=== PATIENT | female | born 1945 | race Caucasian/White ===

== ENCOUNTER → 2017-06-05 | Outpatient (CLI) | payer MEDICARE ==
--- NOTE | 2017-06-05 14:21 | US ---
EXAMINATION TYPE: US carotid duplex BILAT DATE OF EXAM: 06/05/2017 COMPARISON: NONE CLINICAL HISTORY: 72-year-old female Fatigue R53.82Dizziness R42. Patient states has occasional left facial drooping and noticeable at left mouth; dizziness with positional changes and loss of balance. TECHNIQUE: Carotid duplex ultrasound examination. Indirect Doppler criteria is utilized. FINDINGS: Minimal atherosclerotic changes at the right carotid bifurcation and mild to moderate on the left. EXAM MEASUREMENTS: RIGHT: Peak Systolic Velocity (PSV) cm/sec ----- Right CCA: 72.2 ----- Right ICA: 63.3 ----- Right ECA: 63.3 ICA/CCA ratio: 0.9 RIGHT: End Diastole cm/sec ----- Right CCA: 28.6 ----- Right ICA: 26.7 ----- Right ECA: 14.5 LEFT: Peak Systolic Velocity (PSV) cm/sec ----- Left CCA: 63.3 ----- Left ICA: 70.3 ----- Left ECA: 78.8 ICA/CCA ratio: 1.1 LEFT: End Diastole cm/sec ----- Left CCA: 23.7 ----- Left ICA: 27.6 ----- Left ECA: 19.3 VERTEBRALS (direction of flow): Right Vertebral: Antegrade Left Vertebral: Antegrade Rhythm: Normal Mild intimal wall thickening is imaged at right bifurcation and moderate wall changes at noted at Lef t ICA, but PSV is wnl. Incidental finding of bilateral thyroid nodules are noted. The provided images suggest that they are 1 cm or less but dedicated thyroid ultrasound could further evaluate. IMPRESSION: No hemodynamically significant stenosis appreciated in either internal carotid artery. Criteria for Assigning % of Stenosis / Diameter reduction (Estimation based on the indirect measurements of the internal carotid artery velocities (ICA PSV). 1. Normal (no stenosis)=ICA PSV < 125 cm/s: ratio < 2.0: ICA EDV<40 cm/s. 2. Less than 50% stenosis=ICA PSV < 125 cm/s: ratio < 2.0: ICA EDV<40 cm/s. 3. 50 to 69% stenosis=ICA PSV of 125 to 230 cm/s: ration 2.0 ? 4.0: ICA EDV 40-100 cm/s. 4. Greater than 70% stenosis to near occlusion= ICA PSV > 230 cm/s: ratio > 4.0: ICA EDV > 100 cm/s. 5. Near occlusion= ICA PSV velocities may be low or undetectable: variable ratio and ICA EDV. 6. Total occlusion=unable to detect flow.
== END | disposition home or self-care (01) ==
LOC: RADUSWWP 12:16
PROVIDERS: ATTEND Internal Medicine Hematology & Oncology
DX: R42 Dizziness and giddiness (principal); R53.82 Chronic fatigue, unspecified
CPT/HCPCS: 93880

== ENCOUNTER → 2018-01-17 | Outpatient (CLI) | payer MEDICARE ==
[2018-01-17 09:23] VITALS: BP 124/79; PULSE 51; TEMP 97.5; BMI 19.5
--- NOTE | 2018-01-17 09:43 | P.HPOB ---
History of Present Illness H&P Date: 01/17/18 Chief Complaint: The patient is here for her routine gynecologic exam. This is a 72-year-old with an LMP of 1995. The patient is without gynecologic complaints and denies any postmenopausal bleeding. Review of Systems She has lost 5 pounds over the last year and a half. She denies respiratory, cardiac and G.I. problems. She denies maltreatment or problems with falling. : she denies any significant problems with urinary leakage. Past Medical History Past Medical History: Cancer (Right breast cancer 1995 and left breast cancer in 2012), Rheumatoid Arthritis (RA) Additional Past Medical History / Comment(s): Raynauds syndrome and history of osteopenia (s/p 2 yrs use of bisphosphonates in the past). 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 History of Any Multi-Drug Resistant Organisms: None Reported Past Surgical History: Breast Surgery (Right mastectomy 1995 and left mastectomy 2012) Additional Past Surgical History / Comment(s): Bunionectomy. Colonoscopy 2007 Past Psychological History: No Psychological Hx Reported Smoking Status: Former smoker (Quit 1987) Past Alcohol Use History: None Reported Past Drug Use History: None Reported Additional History: She has been since 1964 and is retired. - Past Family History Mother Family Medical History: Cancer (Uncertain of type) Sister(s) Family Medical History: Cancer (Lymphoma) Medications and Allergies Home Medications Medication Instructions Recorded Confirmed Type Certolizumab Pegol [Cimzia] syr INJ MO 01/17/18 History NIFEdipine XL [Procardia XL] tab PO DAILY 01/17/18 History Allergies Allergy/AdvReac Type Severity Reaction Status Date / Time No Known Allergies Allergy Unverified 01/17/18 09:20 Exam - Vital Signs Vital signs: Vital Signs Temp Pulse BP 01/17/18 09:20 97.5 F L 51 L 124/79 Intake and Output 01/16/18 01/17/18 01/17/18 22:59 06:59 14:59 Other: Weight 56.699 kg Height 5'7", BMI 19.6. This is a well-developed well-nourished white female who is alert and oriented times 3 in no acute distress. HEENT: Within normal limits. NECK: Supple without mass or thyromegaly. CHEST AND LUNGS: Clear to auscultation. HEART: Regular rate and rhythm. BREASTS: consistent with bilateral mastectomies. Incisions are well-heeled. There are no masses or tenderness. AXILLARY EXAM: Negative for adenopathy. BACK: Negative for CVA tenderness. ABDOMEN: Soft, nontender, without palpable masses. PELVIC EXAM: Normal external genitalia with moderate atrophy. Cervix and vagina appear normal with moderate atrophy. There is no unusual discharge. There is no evidence of prolapse. The uterus is midposition, nongravid size and nontender. There are no palpable adnexal masses or tenderness. RECTAL EXAM: rectovaginal exam is negative for mass or tenderness and is negative for occult blood. EXTREMITIES: Nontender. IMPRESSION: 1. 72-year-old menopausal female with normal gynecologic exam. 2. History of bilateral breast cancers status post bilateral mastectomy with no evidence of recurrence. PLAN: 1. Pap smear was deferred since she had a normal one less than 2 years ago. 2. She will continue to follow-up with Dr. Meeks regarding her breast cancer history. 3. I have recommended a screening colonoscopy since it has been about 10 years since her last one. She will talk to Dr. Meeks about this. 4. Osteoporosis prevention was discussed. She states she recently had a bone density test done through Dr. Lee and was stable per the patient. 5. She does get flu shots in the fall. 6. She will return in one year.
== END | disposition home or self-care (01) ==
LOC: WWCWWP 08:29
PROVIDERS: ATTEND Obstetrics & Gynecology
DX: Z01.419 Encounter for gynecological examination (general) (routine) without abnormal findings (principal); Z53.9 Procedure and treatment not carried out, unspecified reason

== ENCOUNTER → 2018-12-27 | Outpatient (CLI) | payer MEDICARE ==
--- NOTE | 2018-12-27 14:04 | BD ---
EXAMINATION TYPE: Axial Bone Density DATE OF EXAM: 12/27/2018 COMPARISON: 2016 CLINICAL HISTORY: Postmenopausal female. Osteoporosis screening. Height: 65.25 Weight: 120 FRAX RISK QUESTIONS: Alcohol (3 or more units per day): no Family History (Parent hip fracture): no Glucocorticoids (More than 3mos): no (Ex: prednisone, prednisolone, methylprednisolone, dexamethasone, and hydrocortisone). History of Fracture in Adulthood: no Secondary Osteoporosis: 1. Type 1 Diabetes: no 2. Hyperthyroidism: no 3. Menopause before 45: no 4. Malnutrition: no 5. Chronic liver disease: no Rheumatoid Arthritis: YES Current Tobacco Use: no RISK FACTORS HISTORY OF: Family History of Osteoporosis: does not know for sure Active: yes Diet low in dairy products/other sources of calcium: no Postmenopausal woman: yes Take estrogen and/or progesterone medications: no Lost more than 2 inches in height since high school: yes, states height was once about 68 inches Frequent falls: no Poor Health: no Hyperparathyroidism: no Adrenal Insufficiency: no MEDICATIONS: Prednisone or other steroids: no Thyroid Medications: no Osteoporosis Medications: not now Which medication: history of Fosamax, Boniva, Prolia shot once Additional Medications: Cimzia, Nifedipine Calcium & Vitamin D & various other vitamins Additional History: breast CA, Raynaud phenomenon EXAM MEASUREMENTS: Bone mineral densitometry was performed using the [employer]. Bone mineral density as measured about the Lumbar spine is: ----- L1-L4(G/cm2): 1.002 T Score Values are as follows: ----- L2: -1.4 ----- L3: -1.2 ----- L4: -1.1 ----- L1-L4: -1.5 Bone mineral density has: Decreased -8.3% since study of: 03/30/2016 Bone mineral density about the R hip (g/cm2): 0.748 Bone mineral density about the L hip (g/cm2): 0.793 T Score values are as follows: -----R Neck: -2.1 -----L Neck: -1.8 -----R Total: -2.0 -----L Total: -1.9 Bone mineral density has: Decreased -8.2% since study of: 03/30/2016 IMPRESSION: Osteopenia (T Score between -2.5 and -1). There is slightly increased risk of fracture and the patient may be considered for treatment. Re-Screen 2-5 years. NOTE: T-SCORE=SD OF THE YOUNG ADULT MEAN.
== END | disposition home or self-care (01) ==
LOC: RADBDWWP 12:28
PROVIDERS: ATTEND Internal Medicine Rheumatology
DX: M85.80 Other specified disorders of bone density and structure, unspecified site (principal); M81.0 Age-related osteoporosis without current pathological fracture
CPT/HCPCS: 77080

== ENCOUNTER → 2019-01-22 | Outpatient (CLI) | payer MEDICARE ==
[2019-01-22 10:37] VITALS: BP 136/87; PULSE 66; RESP 16; TEMP 97.9; BMI 19.7
--- NOTE | 2019-01-22 11:45 | P.HPOB ---
History of Present Illness H&P Date: 01/22/19 Chief Complaint: The patient is here for her routine gynecologic exam. This is a 73-year-old with an LMP of 1995. The patient is without gynecologic complaints and denies any postmenopausal bleeding. Review of Systems Her weight has been stable. She denies respiratory, cardiac and G.I. problems. She denies maltreatment or problems with falling. : she denies any significant problems with urinary leakage. Past Medical History Past Medical History: Cancer, Rheumatoid Arthritis (RA) Additional Past Medical History / Comment(s): Right breast cancer in 1995, left breast cancer 2012. Raynauds syndrome and history of osteopenia (s/p 2 yrs use of bisphosphonates in the past). 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 History of Any Multi-Drug Resistant Organisms: None Reported Past Surgical History: Breast Surgery Additional Past Surgical History / Comment(s): Right mastectomy 1995, left mastectomy 2012. Bunionectomy. Colonoscopy 2007. Bilateral cataract surgeries. Past Psychological History: No Psychological Hx Reported Smoking Status: Former smoker Past Alcohol Use History: None Reported Past Drug Use History: None Reported Additional History: Quit smoking in 1987. She has been since 1964 and is infrequently sexually active. She is retired. - Past Family History Mother Family Medical History: Cancer Additional Family Medical History / Comment(s): Unknown type of cancer. Sister(s) Family Medical History: Cancer Additional Family Medical History / Comment(s): Lymphoma. Medications and Allergies Home Medications Medication Instructions Recorded Confirmed Type Certolizumab Pegol [Cimzia] syr INJ MO 01/17/18 History NIFEdipine XL [Procardia XL] tab PO DAILY 01/17/18 History Allergies Allergy/AdvReac Type Severity Reaction Status Date / Time No Known Allergies Allergy Unverified 01/22/19 10:38 Exam Vital Signs Temp Pulse Resp BP Pulse Ox 01/22/19 10:32 97.9 F 66 16 136/87 99 Intake and Output 01/21/19 01/22/19 01/22/19 22:59 06:59 14:59 Other: Weight 55.338 kg Height 5'6" weight 122 pounds, BMI 19.7. This is a well-developed well-nourished white female who is alert and oriented times 3 in no acute distress. HEENT: Within normal limits. NECK: Supple without mass or thyromegaly. CHEST AND LUNGS: Clear to auscultation. HEART: Regular rate and rhythm. BREASTS: exam is consistent with bilateral mastectomies. There are no palpable masses. There is no tenderness. AXILLARY EXAM: Negative for adenopathy. BACK: Negative for CVA tenderness. ABDOMEN: Soft, nontender, without palpable masses. PELVIC EXAM: Normal external genitalia with moderate atrophy. Cervix and vagina appear normal with moderate atrophy. There is no unusual discharge. There is no evidence of prolapse. The uterus is midposition, nongravid size and nontender. There are no palpable adnexal masses or tenderness. RECTAL EXAM: rectovaginal exam is negative for mass or tenderness and is negative for occult blood. EXTREMITIES: Nontender. IMPRESSION: 1. 73-year-old menopausal female with history of bilateral breast cancers and his status post bilateral mastectomies. No evidence of recurrence. 2. Normal pelvic exam. 3. History of osteopenia status post 2 years use of bisphosphonates in the past. PLAN: 1. Pap smears have been discontinued because she is greater than 65 with a history of adequate screening and no history of cervical abnormalities. 2. Self breast awareness was discussed with the patient. She will continue to be aware of changes at the sight of her bilateral mastectomies. 3. Mammograms have been discontinued because of her bilateral mastectomies. 4. Osteoporosis prevention was discussed. I have stressed the importance of adequate calcium, vitamin D and regular exercise. Recommended amounts of calcium and vitamin D were also discussed. Bone density testing was done on 12/27/18 which showed a decrease in bone density strength and continues to show osteopenia. She is declining medication. We will plan on repeating bone density testing in 2-3 years. 5. She does receive flu shots in the fall. 6. I have recommended screening colonoscopy since it is been about 11 years. She will follow-up with Dr. Meeks to arrange this. 7. I have recommended that she return for her well woman exam in one to 2 years.
== END | disposition home or self-care (01) ==
LOC: WWCWWP 10:23
PROVIDERS: ATTEND Obstetrics & Gynecology
DX: Z53.9 Procedure and treatment not carried out, unspecified reason (principal)

== ENCOUNTER 2019-01-28 17:23 | Emergency (ER) | payer MEDICARE ==
[2019-01-28] MEDS ORDERED: ALBUTEROL NEBULIZED 2.5 MG/3 ML INHALATION STA (18:21)
[2019-01-28] MEDS ORDERED: FUROSEMIDE 10 MG/ML 4 ML VIAL IV STA (18:21)
--- NOTE | 2019-01-28 18:37 | ED ---
General Adult HPI - General Chief complaint: Recheck/Abnormal Lab/Rx Stated complaint: Abn labs Time Seen by Provider: 01/28/19 18:20 Source: patient Mode of arrival: ambulatory Limitations: no limitations - History of Present Illness Initial comments: Dictation was produced using [employer] dictation software. please excuse any grammatical, word or spelling errors. Chief Complaint: 73-year-old female past medical history of breast cancer in remission, rheumatoid arthritis presents with abnormal outpatient lab. History of Present Illness: 73-year-old female she reports that she was told to the emergency department for a potassium of 6.5. 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 She was so the potassium was 6.5. Patient has no symptoms at this time. Denies any weakness. Patient has palpitations. Patient otherwise feels at baseline. She reports that there was a difficult lab draw from the office. The ROS documented in this emergency department record has been reviewed and confirmed by me. Those systems with pertinent positive or negative responses have been documented in the HPI. All other systems are other negative and/or noncontributory. PHYSICAL EXAM: General Impression: Alert and oriented x3, not in acute distress HEENT: Normocephalic atraumatic, extra-ocular movements intact, pupils equal and reactive to light bilaterally, mucous membranes moist. Cardiovascular: Heart regular rate and rhythm, S1&S2 audible, no murmurs, rubs or gallops Chest: Lungs clear to auscultation bilaterally, no rhonchi, no wheeze, no rales Abdomen: Bowel sounds present, abdomen soft, non-tender, non-distended, no organomegaly Musculoskeletal: Pulses present and equal in all extremities, no peripheral edema Motor: no focal deficits noted Neurological: CN II-XII grossly intact, no focal motor or sensory deficits noted Skin: Intact with no visualized rashes Psych: Normal affect and mood ED course: 73-year-old female presents with abnormal outpatient lab with a potassium of 6.5. Patient is asymptomatic at this time. Vital signs upon arr ival are within acceptable limits. Laboratory evaluation obtained. CBC, metabolic panel is unremarkable. Potassium is 4.1. EKG is unremarkable.EKG interpretation: Ventricular rate 62, normal sinus r hythm,. Interval 200, care 76, QTC 424. No [place] prolongation, no QTC prolongation, no ST or T-wave changes noted. . Overall, this EKG is unremarkable patient clear for discharge. - Related Data Home Medications Medication Instructions Recorded Confirmed Certolizumab Pegol [Cimzia] 200 mg IV Q28D 01/17/18 01/28/19 NIFEdipine XL [Procardia XL] 30 mg PO DAILY 01/17/18 01/28/19 Calcium 1200mg/Vitamin D 1 tab PO BID 01/28/19 01/28/19 Co Q-10(Unknown) 1 tab PO DAILY 01/28/19 01/28/19 Curcumin 1 tab PO AC-SUPPER 01/28/19 01/28/19 L.acidoph,Paracasei, B.lactis 1 cap PO DAILY 01/28/19 01/28/19 [Probiotic] Lutein(Unknown) 1 tab PO DAILY 01/28/19 01/28/19 Magnesium(Unknown) 1 tab PO AC-SUPPER 01/28/19 01/28/19 Multivitamins, Thera [Multivitamin 1 tab PO DAILY 01/28/19 01/28/19 (formulary)] Vitamin B Complex 1 cap PO DAILY 01/28/19 01/28/19 Vitamin C(Unknown) 1 tab PO DAILY 01/28/19 01/28/19 Vitamin D3(Unknown) 1 tab PO DAILY 01/28/19 01/28/19 Vitamin E(Unknown) 1 tab PO DAILY 01/28/19 01/28/19 Allergies Allergy/AdvReac Type Severity Reaction Status Date / Time Latex, Natural Rubber Allergy Rash/Hives Verified 01/28/19 19:11 Review of Systems ROS Statement: Those systems with pertinent positive or pertinent negative responses have been documented in the HPI. ROS Other: All systems not noted in ROS Statement are negative. Past Medical History Past Medical History: Cancer, Rheumatoid Arthritis (RA) Additional Past Medical History / Comment(s): Right breast cancer in 1995, left breast cancer 2012. Raynauds syndrome and history of osteopenia (s/p 2 yrs use of bisphosphonates in the past). 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 History of Any Multi-Drug Resistant Organisms: None Reported Past Surgical History: Breast Surgery Additional Past Surgical History / Comment(s): Right mastectomy 1995, left mastectomy 2012. Bunionectomy. Colonoscopy 2007. Bilateral cataract surgeries. Past Psychological History: No Psychological Hx Reported Smoking Status: Former smoker Past Alcohol Use History: None Reported Past Drug Use History: None Reported - Past Family History Mother Family Medical History: Cancer Additional Family Medical History / Comment(s): Unknown type of cancer. Sister(s) Family Medical History: Cancer Additional Family Medical History / Comment(s): Lymphoma. General Exam Limitations: no limitations Course Vital Signs 01/28/19 01/28/19 01/28/19 17:44 19:02 19:26 Temperature 98.7 F 98 F Pulse Rate 73 60 61 Respiratory 16 16 18 Rate Blood Pressure 138/97 140/94 127/89 O2 Sat by Pulse 97 98 99 Oximetry Medical Decision Making - Lab Data Result diagrams: 01/28/19 18:46 01/28/19 18:46 Lab Results 01/28/19 01/28/19 Range/Units 18:46 18:46 WBC 2.7 L (3.8-10.6) k/uL RBC 4.40 (3.80-5.40) m/uL Hgb 13.5 (11.4-16.0) gm/dL Hct 40.2 (34.0-46.0) % MCV 91.3 (80.0-100.0) fL MCH 30.7 (25.0-35.0) pg MCHC 33.6 (31.0-37.0) g/dL RDW 14.8 (11.5-15.5) % Plt Count 239 (150-450) k/uL Neutrophils % 52 % Lymphocytes % 28 % Monocytes % 9 % Eosinophils % 5 % Basophils % 1 % Neutrophils # 1.4 (1.3-7.7) k/uL Lymphocytes # 0.7 L (1.0-4.8) k/uL Monocytes # 0.2 (0-1.0) k/uL Eosinophils # 0.1 (0-0.7) k/uL Basophils # 0.0 (0-0.2) k/uL Sodium 136 L (137-145) mmol/L Potassium 4.1 (3.5-5.1) mmol/L Chloride 101 (98-107) mmol/L Carbon Dioxide 26 (22-30) mmol/L Anion Gap 9 mmol/L BUN 20 H (7-17) mg/dL Creatinine 0.59 (0.52-1.04) mg/dL Est GFR (CKD-EPI)AfAm >90 (>60 ml/min/1.73 sqM) Est GFR (CKD-EPI)NonAf >90 (>60 ml/min/1.73 sqM) Glucose 86 (74-99) mg/dL Calcium 9.7 (8.4-10.2) mg/dL Magnesium 2.1 (1.6-2.3) mg/dL Disposition Clinical Impression: Abnormal laboratory test Disposition: HOME SELF-CARE Condition: Good Is patient prescribed a controlled substance at d/c from ED?: No Referrals: Jose Meeks MD [Primary Care Provider] - 1-2 days Time of Disposition: 19:36
[2019-01-28 19:03] LABS: Basophils % (A) 1 %; Eosinophils # (A) 0.1 k/uL (0-0.7); Eosinophils % (A) 5 %; HCT 40.2 % (34.0-46.0); HGB 13.5 gm/dL (11.4-16.0); Lymphocytes # (A) 0.7 k/uL (1.0-4.8); Lymphocytes % (A) 28 %; MCH 30.7 pg (25.0-35.0); MCHC 33.6 g/dL (31.0-37.0); MCV 91.3 fL (80.0-100.0); Monocytes # (A) 0.2 k/uL (0-1.0); Monocytes % (A) 9 %; Neutrophils # (A) 1.4 k/uL (1.3-7.7); Neutrophils % (A) 52 %; Platelet Count 239 k/uL (150-450); RDW 14.8 % (11.5-15.5); WBC 2.7 k/uL (3.8-10.6)
[2019-01-28 19:11] LABS: Anion Gap 9 mmol/L; Blood Urea Nitrogen 20 mg/dL (7-17); Calcium 9.7 mg/dL (8.4-10.2); Carbon Dioxide 26 mmol/L (22-30); Chloride 101 mmol/L (98-107); Glucose 86 mg/dL (74-99); Magnesium 2.1 mg/dL (1.6-2.3); Potassium 4.1 mmol/L (3.5-5.1); Sodium 136 mmol/L (137-145)
[2019-01-28 19:27] VITALS: BP 127/89
[2019-01-28 20:11] VITALS: PULSE 62; RESP 16; TEMP 98.6
== END 2019-01-28 20:10 | disposition home or self-care (01) ==
LOC: EC 17:23
DX: R79.9 Abnormal finding of blood chemistry, unspecified (principal); R00.2 Palpitations; M06.9 Rheumatoid arthritis, unspecified; Z79.899 Other long term (current) drug therapy; Z91.040 Latex allergy status; Z91.048 Other nonmedicinal substance allergy status; Z87.891 Personal history of nicotine dependence; Z85.3 Personal history of malignant neoplasm of breast; Z90.12 Acquired absence of left breast and nipple
CPT/HCPCS: 36415; 80048; 83735; 85025; 93005; 99283

== ENCOUNTER 2019-06-03 14:19 | Observation (INO) | payer MEDICARE ==
[2019-06-03] MEDS ORDERED: ASPIRIN 81 MG PO STA (15:14)
[2019-06-03] MEDS ORDERED: NITROGLYCERIN OINT 1 INCH/GM PACKET TOPICAL STA (15:14)
--- NOTE | 2019-06-03 15:17 | ED ---
General Adult HPI - General Chief complaint: Chest Pain Stated complaint: Chest Pain Time Seen by Provider: 06/03/19 14:25 Source: patient, RN notes reviewed Mode of arrival: ambulatory Limitations: no limitations - History of Present Illness Initial comments: This is a 74-year-old female presents emergency Department with no significant past medical history. Patient comes in today stating complains ago she was cleaning around the bathroom and started having significant chest pain it lasted about half an hour she was mildly short of breath she denies any diaphoretic episodes she denies any nausea. Patient states again today right after yoga she started having significant chest pain she describes it as a heaviness. Patient also has shortness of breath again today. Patient states she continues to have slight heaviness now but nowhere near as significant as it was earlier. Patient denies any diaphoresis today. Patient denies any nausea today. Patient denies any recent fever or chills. Patient denies any lightheadedness or dizziness. Patient denies any headache patient denies numbness weakness. Patient denies any swelling to the lower extremities or calf tenderness - Related Data Home Medications Medication Instructions Recorded Confirmed Certolizumab Pegol [Cimzia] 400 mg IV Q28D 01/17/18 06/03/19 NIFEdipine XL [Procardia XL] 30 mg PO DAILY 01/17/18 06/03/19 Multivitamins, Thera [Multivitamin 1 tab PO DAILY 01/28/19 06/03/19 (formulary)] Allergies Allergy/AdvReac Type Severity Reaction Status Date / Time Latex, Natural Rubber Allergy Rash/Hives Verified 06/03/19 15:10 Review of Systems ROS Statement: Those systems with pertinent positive or pertinent negative responses have been documented in the HPI. ROS Other: All systems not noted in ROS Statement are negative. Past Medical History Past Medical History: Cancer, Rheumatoid Arthritis (RA) Additional Past Medical History / Comment(s): Right breast cancer in 1995, left breast cancer 2012. Raynauds syndrome and history of osteopenia (s/p 2 yrs use of bisphosphonates in the past). Past COLD TYPE ARTIST history: she has no history of STDs. History of Any Multi-Drug Resistant Organisms: None Reported Past Surgical History: Breast Surgery Additional Past Surgical History / Comment(s): Right mastectomy 1995, left mastectomy 2012. Bunionectomy. Colonoscopy 2007. Bilateral cataract llamas rgeries. Past Psychological History: No Psychological Hx Reported Smoking Status: Former smoker Past Alcohol Use History: None Reported Past Drug Use History: None Reported - Past Family History Mother Family Medical History: Cancer Additional Family Medical History / Comment(s): Unknown type of cancer. Sister(s) Family Medical History: Cancer Additional Family Medical History / Comment(s): Lymphoma. General Exam - General Exam Comments Initial Comments: GENERAL: Patient is well-developed and well-nourished. Patient is nontoxic and well- hydrated and is in mild distress. ENT: Neck is soft and supple. No significant lymphadenopathy is noted. Oropharynx is clear. Moist mucous membranes. Neck has full range of motion without eliciting any pain. EYES: The sclera were anicteric and conjunctiva were pink and moist. Extraocular movements were intact and pupils were equal round and reactive to light. Eyelids were unremarkable. PULMONARY: Unlabored respirations. Good breath sounds bilaterally. No audible rales rhonchi or wheezing was noted. CARDIOVASCULAR: There is a regular rate and rhythm without any murmurs gallops or rubs. ABDOMEN: Soft and nontender with normal bowel sounds. SKIN: Skin is clear with no lesions or rashes and otherwise unremarkable. NEUROLOGIC: Patient is alert and oriented x3. Cranial nerves II through XII are grossly intact. Motor and sensory are also intact. Normal speech, volume and content. Symmetrical smile. MUSCULOSKELETAL: Normal extremities with adequate strength and full range of motion. No lower extremity swelling or edema. No calf tenderness. LYMPHATICS: No significant lymphadenopathy is noted PSYCHIATRIC: Normal psychiatric evaluation. Limitations: no limitations Course Vital Signs 06/03/19 06/03/19 06/03/19 14:25 14:39 15:00 Temperature 97.3 F L Pulse Rate 83 75 69 Respiratory 20 16 14 Rate Blood Pressure 117/74 121/108 O2 Sat by Pulse 99 98 96 Oximetry 06/03/19 06/03/19 06/03/19 15:30 15:42 16:00 Temperature Pulse Rate 71 63 Respiratory 16 16 Rate Blood Pressure 127/89 O2 Sat by Pulse 97 Oximetry 06/03/19 16:02 Temperature Pulse Rate 63 Respiratory 16 Rate Blood Pressure 127/89 O2 Sat by Pulse Oximetry Medical Decision Making - Medical Decision Making EKG shows normal sinus rhythm at 76 bpm WA interval is 180 QRSs 80 QT interval 364 QTC is 49. Patient's EKG shows no ST segment elevation or depression. Chest x-ray shows no acute abnormality. I started the patient heparin for unstable angina. Oncologist requested Dr. Hyman spoke I spoke with [facility] hospitalist and they agreed to admit the patient admitted the patient wrote admitting orders I consult cardiology - Lab Data Result diagrams: 06/03/19 14:47 06/03/19 14:47 Lab Results 06/03/19 06/03/19 06/03/19 Range/Units 14:47 14:47 14:47 WBC 4.0 (3.8-10.6) k/uL RBC 4.67 (3.80-5.40) m/uL Hgb 14.9 (11.4-16.0) gm/dL Hct 43.9 (34.0-46.0) % MCV 94.0 (80.0-100.0) fL MCH 32.0 (25.0-35.0) pg MCHC 34.1 (31.0-37.0) g/dL RDW 13.5 (11.5-15.5) % Plt Count 308 (150-450) k/uL Neutrophils % 64 % Lymphocytes % 25 % Monocytes % 7 % Eosinophils % 1 % Basophils % 1 % Neutrophils # 2.6 (1.3-7.7) k/uL Lymphocytes # 1.0 (1.0-4.8) k/uL Monocytes # 0.3 (0-1.0) k/uL Eosinophils # 0.1 (0-0.7) k/uL Basophils # 0.0 (0-0.2) k/uL PT 10.0 (9.0-12.0) sec INR 0.9 (<1.2) APTT 25.1 (22.0-30.0) sec Sodium 138 (137-145) mmol/L Potassium 4.3 (3.5-5.1) mmol/L Chloride 102 (98-107) mmol/L Carbon Dioxide 25 (22-30) mmol/L Anion Gap 11 mmol/L BUN 14 (7-17) mg/dL Creatinine 0.58 (0.52-1.04) mg/dL Est GFR (CKD-EPI)AfAm >90 (>60 ml/min/1.73 sqM) Est GFR (CKD-EPI)NonAf >90 (>60 ml/min/1.73 sqM) Glucose 94 (74-99) mg/dL Calcium 9.9 (8.4-10.2) mg/dL Magnesium 2.1 (1.6-2.3) mg/dL Total Bilirubin 0.5 (0.2-1.3) mg/dL AST 38 H (14-36) U/L ALT 27 (9-52) U/L Alkaline Phosphatase 86 (38-126) U/L Troponin I (0.000-0.034) ng/mL Total Protein 8.1 (6.3-8.2) g/dL Albumin 4.8 (3.5-5.0) g/dL 06/03/19 Range/Units 14:47 WBC (3.8-10.6) k/uL RBC (3.80-5.40) m/uL Hgb (11.4-16.0) gm/dL Hct (34.0-46.0) % MCV (80.0-100.0) fL MCH (25.0-35.0) pg MCHC (31.0-37.0) g/dL RDW (11.5-15.5) % Plt Count (150-450) k/uL Neutrophils % % Lymphocytes % % Monocytes % % Eosinophils % % Basophils % % Neutrophils # (1.3-7.7) k/uL Lymphocytes # (1.0-4.8) k/uL Monocytes # (0-1.0) k/uL Eosinophils # (0-0.7) k/uL Basophils # (0-0.2) k/uL PT (9.0-12.0) sec INR (<1.2) APTT (22.0-30.0) sec Sodium (137-145) mmol/L Potassium (3.5-5.1) mmol/L Chloride (98-107) mmol/L Carbon Dioxide (22-30) mmol/L Anion Gap mmol/L BUN (7-17) mg/dL Creatinine (0.52-1.04) mg/dL Est GFR (CKD-EPI)AfAm (>60 ml/min/1.73 sqM) Est GFR (CKD-EPI)NonAf (>60 ml/min/1.73 sqM) Glucose (74-99) mg/dL Calcium (8.4-10.2) mg/dL Magnesium (1.6-2.3) mg/dL Total Bilirubin (0.2-1.3) mg/dL AST (14-36) U/L ALT (9-52) U/L Alkaline Phosphatase (38-126) U/L Troponin I <0.012 (0.000-0.034) ng/mL Total Protein (6.3-8.2) g/dL Albumin (3.5-5.0) g/dL Critical Care Time Critical Care Time: Yes Total Critical Care Time: 35 Disposition Clinical Impression: Unstable angina pectoris Disposition: ADMITTED IP TO THIS HOSP Referrals: Jose Meeks MD [Primary Care Provider] - 1-2 days Time of Disposition: 16:16
[2019-06-03 15:42] LABS: Basophils % (A) 1 %; Eosinophils # (A) 0.1 k/uL (0-0.7); Eosinophils % (A) 1 %; HCT 43.9 % (34.0-46.0); HGB 14.9 gm/dL (11.4-16.0); Lymphocytes % (A) 25 %; MCHC 34.1 g/dL (31.0-37.0); Mean Platelet Volume 5.9; Monocytes # (A) 0.3 k/uL (0-1.0); Monocytes % (A) 7 %; Neutrophils # (A) 2.6 k/uL (1.3-7.7); Neutrophils % (A) 64 %; Platelet Count 308 k/uL (150-450); RBC 4.67 m/uL (3.80-5.40); RDW 13.5 % (11.5-15.5)
[2019-06-03 15:51] LABS: INR 0.9 (<1.2); Partial Thromboplastin Time 25.1 sec (22.0-30.0)
[2019-06-03 15:53] LABS: ALT 27 U/L (9-52); AST 38 U/L (14-36); African American GFR (CKD) >90 (>60 ml/min/1.73 sqM); Albumin 4.8 g/dL (3.5-5.0); Alkaline Phosphatase 86 U/L (38-126); Anion Gap 11 mmol/L; Blood Urea Nitrogen 14 mg/dL (7-17); Calcium 9.9 mg/dL (8.4-10.2); Carbon Dioxide 25 mmol/L (22-30); Chloride 102 mmol/L (98-107); Glucose 94 mg/dL (74-99); Magnesium 2.1 mg/dL (1.6-2.3); Potassium 4.3 mmol/L (3.5-5.1); Sodium 138 mmol/L (137-145); Total Bilirubin 0.5 mg/dL (0.2-1.3); Total Protein 8.1 g/dL (6.3-8.2)
--- NOTE | 2019-06-03 15:59 | XR ---
EXAMINATION TYPE: XR chest 2V DATE OF EXAM: 06/03/2019 COMPARISON: Chest x-ray April 04, 2014. HISTORY: Chest pain with dysrhythmia. History of breast cancer. TECHNIQUE: Frontal and lateral views of the chest are obtained. FINDINGS: There is chronic parenchymal changes bilaterally without suspicious focal air space opacit y, pleural effusion, or pneumothorax seen. The cardiac silhouette size is within normal limits with atherosclerotic and ectatic aorta. The osseous structures are demineralized. Exaggerated kyphosis i s seen. IMPRESSION: Chronic parenchymal changes without acute pulmonary process.
[2019-06-03] MEDS ORDERED: HEPARIN SODIUM,PORCINE 5,000 UNIT/ML 1 ML VIAL IV ONE (16:15)
[2019-06-03] MEDS ORDERED: HEPARIN SOD,PORK IN 0.45% NACL 25,000 UNIT in 0.45% NACL 1 250ML.BAG IV SCH (16:15)
[2019-06-03] MEDS ORDERED: NITROGLYCERIN SL TABS 0.4 MG TAB SUBLINGUAL PRN (16:18)
[2019-06-03] MEDS ORDERED: ALPRAZolam 0.25 MG TAB PO PRN (18:30)
[2019-06-03] MEDS: PANTOPRAZOLE 40 MG/10 ML VIAL IVP SCH (18:55)
--- NOTE | 2019-06-03 20:02 | HP ---
HISTORY AND PHYSICAL DATE OF SERVICE: 06/03/2019 CHIEF COMPLAINT: Chest pain. HISTORY OF PRESENT ILLNESS: This 74-year-old woman with a past medical history of multiple medical problems, including rheumatoid arthritis and right breast cancer, being followed by Dr. Meeks in the outpatient setting, was having some chest pains in the anterior part of the chest. The patient was cleaning the bathroom and the pain lasted about a half an hour. There were no other associated symptoms; no radiation of the pain elsewhere. The patient was pretty active doing yoga and recently returned from an [place] vacation where she apparently took slightly more wine than usual, according to her. Otherwise, there is no history of any fever, rigors, chills. No headache, loss of consciousness or seizures at this time. PAST MEDICAL HISTORY: 1. History of rheumatoid arthritis. 2. Right breast cancer. 3. Mastectomy. MEDICATIONS: 1. Cimzia 400 mg IV q.28 days. 2. Multivitamins 1 p.o. daily. 3. Procardia XL 30 mg p.o. daily. ALLERGIES: 1. LATEX. 2. NATURAL RUBBER. FAMILY HISTORY: History of cancer. SOCIAL HISTORY: Previous history of smoking. No current smoking. No history of alcohol intake. REVIEW OF SYSTEMS: ENT: No diminished hearing. No diminished vision. CARDIOVASCULAR SYSTEM: As mentioned earlier. RESPIRATORY SYSTEM: As mentioned earlier. GI: As mentioned earlier. : No dysuria or retention. NERVOUS SYSTEM: No numbness, weakness. ALLERGY/IMMUNOLOGY: No asthma, hayfever. MUSCULOSKELETAL: As mentioned earlier. HEMATOLOGY/ONCOLOGY: As mentioned earlier. ENDOCRINE: No history of diabetes, hypothyroidism. CONSTITUTIONAL: As mentioned earlier. DERMATOLOGY: Negative. RHEUMATOLOGY: Negative. PSYCHIATRY: As mentioned earlier. PHYSICAL EXAMINATION: Patient alert and oriented x3. Pulse is 63, blood pressure 127/89, respirations 16, temperature 97.3, pulse ox 97% on room air. HEENT: Conjunctivae normal. Oral mucosa moist. NECK: No jugular venous distention. No carotid bruit. No lymph node enlargement. CARDIOVASCULAR SYSTEM: S1, S2 muffled. No S3. No S4. RESPIRATORY SYSTEM: Breath sounds diminished at the bases. No rhonchi. No crackles. ABDOMEN: Soft, non-tender. No mass palpable. LEGS: No edema. No swelling. NERVOUS SYSTEM: Higher functions as mentioned earlier. Moves all 4 limbs. No focal motor or sensory deficit. LYMPHATICS: No lymph node palpable in neck, axillae or groin. JOINTS: No active deforming arthropathy. LABS: CBC within normal limits. CMP within normal limits. ASSESSMENT: 1. Chest pain; possible unstable angina. 2. History of rheumatoid arthritis. 3. History of breast cancer. 4. History of Raynaud syndrome. 5. Remote history of nicotine dependence. RECOMMENDATIONS AND DISCUSSION: In this 74-year-old woman who presented with multiple medical issues, at this time I recommend to continue the current medications, continue symptomatic treatment. Resume the home medications. Cardiology consultation. Rule out myocardial infarction. Possible stress test. Prognosis guarded because of multiple complex medical issues. Further recommendations to follow. A copy of this dictation is being forwarded to Dr. Meeks, who is the primary physician. Constantino The initial EKG and troponins are normal. MMODL / IJN: [id number] /
[2019-06-03 20:28] LABS: Appearance,Urine Clear (Clear); Bilirubin,Urine Negative (Negative); Blood,Urine Negative (Negative); Color,Urine Light Yellow; Glucose,Urine (UA) Negative (Negative); Ketones,Urine Negative (Negative); Leukocyte Esterase,Urine Negative (Negative); Nitrite,Urine Negative (Negative); PH, Urine 7.5 (5.0-8.0); Protein,Urine Negative (Negative); Specific Gravity,Urine 1.008 (1.001-1.035); Urobilinogen,Urine <2.0 mg/dL (<2.0)
[2019-06-03] MEDS ORDERED: ACETAMINOPHEN TAB 325 MG TAB PO PRN (23:14)
[2019-06-03] MEDS: NITROGLYCERIN OINT 1 INCH/GM PACKET TOPICAL SCH (23:15)
[2019-06-04 03:37] LABS: Cholesterol 142 mg/dL (<200); HDL Cholesterol 71 mg/dL (40-60); LDL Cholesterol,Calculated 64 mg/dL (0-99); Triglycerides 33 mg/dL (<150)
[2019-06-04] MEDS: NITROGLYCERIN OINT 1 INCH/GM PACKET TOPICAL SCH ×2 (05:05→11:10)
[2019-06-04] MEDS ORDERED: ASPIRIN 325 MG TAB PO SCH (09:00)
[2019-06-04] MEDS ORDERED: MULTIVITAMINS, THERA 1 EACH TAB PO SCH (09:00)
[2019-06-04] MEDS ORDERED: NIFEdipine XL 30 MG TAB.ER.24 PO SCH (09:00)
[2019-06-04 09:34] VITALS: BMI 18.9
[2019-06-04 09:54] VITALS: BP 124/83; PULSE 58; RESP 14; TEMP 98.2
[2019-06-04] MEDS: PANTOPRAZOLE 40 MG/10 ML VIAL IVP SCH (09:54)
--- NOTE | 2019-06-04 12:00 | ECHOF ---
Referral Reason:[place] MEASUREMENTS -------- HEIGHT: 170.2 cm WEIGHT: 54.9 kg BP: 139/75 RVIDd: 2.7 cm (< 3.3) IVSd: 1.1 cm (0.6 - 1.1) LVIDd: 4.0 cm (3.9 - 5.3) LVPWd: 1.2 cm (0.6 - 1.1) IVSs: 1.4 cm LVIDs: 2.9 cm LVPWs: 1.4 cm LA Diam: 3.8 cm (2.7 - 3.8) LAESV Index (A-L): 33.32 ml/m Ao Diam: 2.6 cm (2.0 - 3.7) AV Cusp: 1.6 cm (1.5 - 2.6) LA Diam: 3.6 cm (2.7 - 3.8) MV EXCURSION: 14.577 mm (> 18.000) MV EF SLOPE: 65 mm/s (70 - 150) EPSS: 0.6 cm MV E Bradford: 0.55 m/s MV DecT: 186 ms MV A Rbadford: 0.74 m/s MV E/A Ratio: 0.74 RAP: 5.00 mmHg RVSP: 25.72 mmHg TAPSE: 25.05 mm FINDINGS -------- Sinus rhythm. This was a technically good study. LV size, wall thickness and systolic function are normal, with an EF greater than 55%. The left rajan tricular size is normal. The diastolic filling pattern is normal for the age of the patient 10.25. The right ventricle is normal in size. The left atrium is mildly dilated. LA is midly dilated 29-33ml/m2. The right atrial size is normal. There is mild aortic valve sclerosis. There is no evidence of aortic regurgitation. Mild mitral annular calcification present. Bvqq-jy-xoyriusr mitral regurgitation is present. Mild tricuspid regurgitation present. Right ventricular systolic pressure is normal at < 35 mmHg. There is no evidence of pulmonary hypertension. Trace/mild (physiologic) pulmonic regurgitation. The aortic root size is normal. There is no pericardial effusion. CONCLUSIONS -------- 1. Sinus rhythm. 2. This was a technically good study. 3. LV size, wall thickness and systolic function are normal, with an EF greater than 55%. 4. The left ventricular size is normal. 5. The diastolic filling pattern is normal for the age of the patient 10.25 6. The right ventricle is normal in size. 7. The left atrium is mildly dilated. 8. LA is midly dilated 29-33ml/m2. 9. The right atrial size is normal. 10. There is mild aortic valve sclerosis. 11. Mild mitral annular calcification present. 12. Hhqc-ih-rizvapqx mitral regurgitation is present. 13. Right ventricular systolic pressure is normal at < 35 mmHg. 14. There is no evidence of pulmonary hypertension. 15. Trace/mild (physiologic) pulmonic regurgitation. 16. The aortic root size is normal. 17. There is no pericardial effusion. SCHOOL CLEANER: Shagufta Jarrett RDCS
--- NOTE | 2019-06-04 12:42 | CONS ---
CONSULTATION Brea Rodriguez is a 74-year-old lady who is remarkably active person. She has history of Raynaud phenomena and takes and I freed heparin in this regard. She came into the hospital because recently when she is doing yoga, especially with certain movements. She has some kind of a pressure in the chest when she is done with the procedure. At other times when she goes walking and does yard work and other activity, she has no similar symptoms. Her 3 troponins are normal. EKG is unremarkable. She is resting comfortably without symptoms. Yesterday she was doing some cleaning in the bathroom and she was on her knees and elbows and scrubbing with this. She felt some heaviness in the mid/chest area. However, when she went for a walk again, she did not have symptoms. Quality of the pain is not entirely suggestive of angina. She has no history of any hypertension, diabetes, myocardial infarction or CVA. PAST MEDICAL HISTORY: Remarkable for Raynaud phenomenon, there is a question of rheumatoid arthritis. She has had some right breast cancer in 1995 and left breast cancer in 2012 for which she had treatment. She has also had previous mastectomy for this for this malignancy and has bilateral cataract surgery. MEDICATIONS: At home include a a.m. intravenous an infusions of saw her to resume lab for rheumatoid arthritis and I freed up in XL 30 mg daily, and multivitamins. ALLERGIES: She is not allergic to any particular medications. PHYSICAL EXAMINATION: Blood pressure is 130/70, pulse rate is 64 per minute regular HEENT unremarkable. Fundus was not examined by me. Neck is supple. No JVD. I do not hear a carotid bruit. There is no thyromegaly heart exam reveals S1, S2 heard normally no significant rub, murmur or gallop lungs are clear. Abdomen is soft, nontender. Lower extremities reveal normal pulses. No edema. Central nervous system is normal EKG revealed a sinus mechanism without any significant acute changes. LABORATORY DATA: Reveals that her troponin levels are all normal. Renal function is normal. Cholesterol levels are normal. IMPRESSION: 1. Chest pain syndrome cannot exclude angina. 2. Stable rheumatoid arthritis. 3. History of Raynaud phenomena on IPAP. RECOMMENDATIONS: I am recommending an echocardiogram and a stress echo and based on this, will make further recommendations. I discussed my thoughts in detail with the patient and she is agreeable with this approach. Thank you very much for the consult. DANNI / IJN: [id number] /
--- NOTE | 2019-06-04 23:48 | DS ---
DISCHARGE SUMMARY DATE OF SERVICE: 06/04/2019. FINAL DIAGNOSES: 1. Chest pain. Myocardial infarction ruled out. Negative stress test with possible GERD. 2. History of rheumatoid arthritis. 3. History of breast cancer. 4. History of Raynaud syndrome. 5. Remote history of nicotine dependence. DISCHARGE DISPOSITION: The patient will be discharged in stable condition with guarded prognosis. HISTORY OF PRESENT ILLNESS: This 74-year-old woman with a past medical history of multiple medical problems, being followed by Dr. Meeks in the outpatient setting, was admitted with chest pain. Myocardial infarction was ruled out. Cardiology performed a stress test. I was informed that the stress test was negative. Official report is not available. The patient will be discharged in stable condition with guarded prognosis. A short course of Protonix is recommended with close followup with Dr. Meeks. On exam, vitals are stable. CARDIOVASCULAR SYSTEM: S1, S2 muffled. ABDOMEN: Soft. NERVOUS SYSTEM: No focal deficit. DISCHARGE ADVICE AND MEDICATIONS: 1. Discharge diet is cardiac. 2. Activity limited until followup. 3. Follow up with Dr. Meeks in 2-3 days. 4. Follow up with Dr. Daren Newman as recommended. 5. Cimzia 400 mg IV q.28 days. 6. Multivitamins 1 p.o. daily. 7. Procardia XL 30 mg p.o. daily. 8. Protonix 40 mg daily. Once again, the patient will be discharged in stable condition with guarded prognosis. MMODL / IJN: [id number] /
[2019-06-05] MEDS ORDERED: PANTOPRAZOLE 40 MG TABLET PO SCH (07:30)
--- NOTE | 2019-06-05 13:58 | ECHOS ---
STRESS ECHOCARDIOGRAM DATE OF SERVICE: 06/04/2019 INDICATIONS: Unstable angina. MEDICATIONS: BASELINE HEART RATE: 70 BASELINE BLOOD PRESSURE: 152/109 MAXIMUM HEART RATE: 144 MAXIMUM BLOOD PRESSURE: 165/91 85% MPHR: 123 100% MPHR: 145 METS: 7.1 MAXIMUM STAGE REACHED: II TOTAL EXERCISE TIME: 6 minutes CLINICAL INFORMATION: The patient was exercised for a total period of 6 minutes. The peak heart rate of 144 was achieved. Maximum blood pressure of 165/91 mmHg was noted. Resting EKG shows normal sinus rhythm with normal AR interval and QRS duration and normal ST-T waves. No ST- segment depression suggestive of ischemia is noted. The baseline echocardiographic images reveals normal left ventricular chamber size with normal left ventricular systolic function. In the immediate postexercise periods, normal increase in the wall thickness and contractility is noted. FINAL IMPRESSION: This stress echocardiographic study is negative for stress-induced ischemia. EKG portion of the stress test is not suggestive of ischemia. MMODL / IJN: [id number] /
== END 2019-06-04 15:13 | disposition home or self-care (01) ==
LOC: EC 14:19 → 3SCARD 16:18
PROVIDERS: ADMIT Hospitalist; ATTEND Hospitalist
DX: R07.89 Other chest pain (principal); R06.02 Shortness of breath; M06.9 Rheumatoid arthritis, unspecified; Z85.3 Personal history of malignant neoplasm of breast; I73.00 Raynaud's syndrome without gangrene; Z87.891 Personal history of nicotine dependence; Z90.11 Acquired absence of right breast and nipple; Z90.12 Acquired absence of left breast and nipple; Z79.899 Other long term (current) drug therapy; Z91.040 Latex allergy status; Z91.048 Other nonmedicinal substance allergy status; M85.80 Other specified disorders of bone density and structure, unspecified site; Z80.9 Family history of malignant neoplasm, unspecified; Z80.7 Family history of other malignant neoplasms of lymphoid, hematopoietic and related tissues
CPT/HCPCS: 96376 ×2; 96366 ×2; 96375; 96365; 99291; 36415; 93005; 93306; 93351; 80061; 80053; 83735; 84484 ×2; 85025; 85610; 85730 ×2; 81003; 71046; G0378 ×2; J1644 ×2; C9113 ×2

== ENCOUNTER → 2020-05-12 | Day surgery (SDC) | payer MEDICARE ==
[2020-05-07 14:07] VITALS: BMI 18.8
[~2020-05-12] MED LIST: LACTATED RINGERS 1,000 ML IV SCH; LIDOCAINE 1% (10MG/ML) FOR IV START INTRADERMA ONE; LIDOCAINE 1% INJ 10MG/ML (20 ML MDV) ONE; PROPOFOL 10 MG/ML 20 ML VIAL IV ONE
[2020-05-12 08:48] VITALS: TEMP 97.9
--- NOTE | 2020-05-12 09:37 | P.GSHP ---
History of Present Illness H&P Date: 05/12/20 Chief Complaint: Colon cancer screening Patient here today for colonoscopy. Last colonoscopy 20 years ago. Chronic constipation. No rectal bleeding. No family history of colon cancer. Personal history of breast cancer. Past Medical History Past Medical History: Cancer, Rheumatoid Arthritis (RA) Additional Past Medical History / Comment(s): Right breast cancer in 1995, left breast cancer 2012. Raynauds syndrome and history of osteopenia (s/p 2 yrs use of bisphosphonates in the past). last chemo 1995. 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 History of Any Multi-Drug Resistant Organisms: None Reported Past Surgical History: Breast Surgery Additional Past Surgical History / Comment(s): Right mastectomy 1995, left mas tectomy 2012. Bunionectomy. Colonoscopy 2007. Bilateral cataract surgeries. Past Anesthesia/Blood Transfusion Reactions: No Reported Reaction Smoking Status: Former smoker - Past Family History Mother Family Medical History: Cancer Additional Family Medical History / Comment(s): Unknown type of cancer. Sister(s) Family Medical History: Cancer Additional Family Medical History / Comment(s): Lymphoma. Medications and Allergies Home Medications Medication Instructions Recorded Confirmed Type Certolizumab Pegol [Cimzia] 400 mg IV Q28D 01/17/18 05/12/20 History NIFEdipine XL [Procardia XL] 30 mg PO DAILY 01/17/18 05/12/20 History Multivitamins, Thera [Multivitamin 1 tab PO DAILY 01/28/19 05/12/20 History (formulary)] Allergies Allergy/AdvReac Type Severity Reaction Status Date / Time Latex, Natural Rubber Allergy Rash/Hives Verified 05/12/20 08:49 Surgical - Exam Vital Signs Temp Pulse Resp BP Pulse Ox 97.9 F 68 16 150/95 100 05/12/20 08:43 05/12/20 08:43 05/12/20 08:43 05/12/20 08:43 05/12/20 08:43 Physical exam: General: Well-developed, well-nourished HEENT: Normocephalic, sclerae nonicteric Abdomen: Nontender, nondistended Extremities: No edema Neuro: Alert and oriented Assessment and Plan (1) Colon cancer screening Narrative/Plan: Will proceed with colonoscopy at this time Current Visit: Yes Status: Acute Code(s): Z12.11 - ENCOUNTER FOR SCREENING FOR MALIGNANT NEOPLASM OF COLON SNOMED Code(s): 545773969
--- NOTE | 2020-05-12 10:00 | P.PCN ---
Date of Procedure: 05/12/20 Procedure(s) Performed: PREOPERATIVE DIAGNOSIS: Colon cancer screening POSTOPERATIVE DIAGNOSIS: Melanosis coli PROCEDURE: Colonoscopy ANESTHESIA: MAC SURGEON: Doc Villanueva M.D. SPECIMENS: None ENDOSCOPIC PROCEDURE: The patient was placed on the endoscopy table in the left decubitus position. The Olympus colonoscope was inserted into the anus and passed under direct visualization to the base of the cecum. The appendiceal orifice was visualized. From that point the scope was slowly withdrawn inspe cting all surfaces carefully. There were no neoplastic inflammatory or polypoid lesions throughout the cecum, ascending, transverse, descending, sigmoid and rectum. There was no visible diverticulosis noted. The patient had extensive melanosis coli and tortuosity. The patient had retained liquid and semisolid stool limiting the visualization. Digital rectal examination was normal. The patient was taken to the recovery room in stable condition per anesthesia guidelines. RECOMMENDATIONS: Resume diet. Continue stool softeners.
[2020-05-12 10:23] VITALS: PULSE 58; RESP 16
[2020-05-12 10:39] VITALS: BP 131/82
== END ==
LOC: ORWHC2ENDO 08:31
PROVIDERS: ATTEND Surgery
DX: K63.89 Other specified diseases of intestine (principal); Q43.9 Congenital malformation of intestine, unspecified; K59.09 Other constipation; I10 Essential (primary) hypertension; M06.9 Rheumatoid arthritis, unspecified; I73.00 Raynaud's syndrome without gangrene; M85.80 Other specified disorders of bone density and structure, unspecified site; Z91.040 Latex allergy status; Z79.899 Other long term (current) drug therapy; Z85.3 Personal history of malignant neoplasm of breast; Z92.21 Personal history of antineoplastic chemotherapy; Z90.13 Acquired absence of bilateral breasts and nipples; Z98.41 Cataract extraction status, right eye; Z98.42 Cataract extraction status, left eye; Z87.891 Personal history of nicotine dependence; Z80.7 Family history of other malignant neoplasms of lymphoid, hematopoietic and related tissues; Z80.9 Family history of malignant neoplasm, unspecified
CPT/HCPCS: 45378; J2001; J2704

== ENCOUNTER → 2021-12-28 | Outpatient (CLI) | payer MEDICARE ==
--- NOTE | 2021-12-28 13:47 | XR ---
EXAMINATION TYPE: XR chest 2V DATE OF EXAM: 12/28/2021 COMPARISON: chest x-ray 06/03/2019 HISTORY: Cough TECHNIQUE: Frontal and lateral views of the chest are obtained. FINDINGS: There is no focal air space opacity, pleural effusion, or pneumothorax seen. The cardiac silhouette size is within normal limits. There is eventration right hemidiaphragm. Aorta is dense an d tortuous. Prominent lung volume could be indicative of underlying COPD. The osseous structures are intact. IMPRESSION: No acute cardiopulmonary process.
== END | disposition home or self-care (01) ==
LOC: RADXRMAIN 12:42
PROVIDERS: ATTEND Internal Medicine
DX: R05.9 Cough, unspecified (principal)
CPT/HCPCS: 71046

== ENCOUNTER → 2022-02-09 | Outpatient (CLI) | payer MEDICARE ==
[2022-02-09 10:45] VITALS: BP 128/79; PULSE 64; RESP 17; TEMP 98.4
--- NOTE | 2022-02-09 14:03 | P.HPOB ---
History of Present Illness H&P Date: 02/09/22 Chief Complaint: The patient is here for her routine gynecologic exam. This is a 76-year-old 012 with an LMP of 1995. The patient is complaining of abdominal bloating which she states has gone on for many months and she attributes this to constipation. She is without gynecologic complaints. Review of Systems Weight has been stable. She denies respiratory or cardiac problems. GI: She has been having issues with constipation and abdominal bloating. Past Medical History Past Medical History: Cancer, Rheumatoid Arthritis (RA) Additional Past Medical History / Comment(s): Right breast cancer in 1995, left breast cancer 2012. Raynauds syndrome and history of osteopenia (s/p 2 yrs use of bisphosphonates in the past). last chemo 1995. Past RESPONDER history: she has no history of STDs. History of Any Multi-Drug Resistant Organisms: None Reported Past Surgical History: Breast Surgery Additional Past Surgical History / Comment(s): Right mastectomy 1995, left mastectomy 2012. Bunionectomy. Colonoscopy 2019. Bilateral cataract surgeries. Past Anesthesia/Blood Transfusion Reactions: No Reported Reaction Past Psychological History: No Psychological Hx Reported Smoking Status: Former smoker Past Alcohol Use History: None Reported Additional Past Alcohol Use History / Comment(s): quit 1997, less than 1ppd, started age 19 Past Drug Use History: None Reported Additional History: She has been since 1964. She is retired. - Past Family History Mother Family Medical History: Cancer Additional Family Medical History / Comment(s): Unknown type of cancer. Sister(s) Family Medical History: Cancer Additional Family Medical History / Comment(s): Lymphoma. Medications and Allergies Home Medications Medication Instructions Recorded Confirmed Type Certolizumab Pegol [Cimzia] 400 mg IV Q28D 01/17/18 02/09/22 History NIFEdipine XL [Procardia XL] 30 mg PO DAILY 01/17/18 02/09/22 History Multivitamins, Thera [Multivitamin 1 tab PO DAILY 01/28/19 02/09/22 History (formulary)] Allergies Allergy/AdvReac Type Severity Reaction Status Date / Time Latex, Natural Rubber Allergy Rash/Hives Verified 02/09/22 10:41 Exam Vital Signs Temp Pulse Resp BP Pulse Ox 02/09/22 10:41 98.4 F 64 17 128/79 97 Intake and Output 02/08/22 02/09/22 02/09/22 22:59 06:59 14:59 Other: Weight 55.792 kg Height 5 feet 6 inches, weight 123 pounds, BMI 19.9. This is a well-developed well-nourished thin white female who is alert and oriented times 3 in no acute distress. HEENT: Within normal limits. NECK: Supple without mass or thyromegaly. CHEST AND LUNGS: Clear to auscultation. HEART: Regular rate and rhythm. BREASTS: Are consistent with bilateral mastectomies. There are no palpable masses. There are bilateral annuar areas of erythema with centered clearing and scaly borders. On the right chest close to the skin where her areola used to be needed measures 4 x 5 cm. On the left side close to where the area Oley used to be measures 3 x 2.5 cm. In the right axilla there is also an annular area measuring 5x3 cm. The patient states these areas are very itchy and she is scheduled to see a chip frier regarding this next month. AXILLARY EXAM: Negative for adenopathy. BACK: Negative for CVA tenderness. ABDOMEN: Soft, nontender, with mild distention without palpable masses. PELVIC EXAM: Normal external genitalia with moderate atrophy. Cervix and vagina appear normal mild to moderate atrophy. There is no unusual discharge. There is no evidence of prolapse. The uterus is slightly deviated to the right, nongravid size and nontender. There is a palpable mass which is firm and some what irregular to the left of the uterus measuring approximately 5 cm. It has the feel of hard stool in the pelvis. This is nontender. RECTAL EXAM: Rectovaginal exam is negative for mass or tenderness and is negative for occult blood. There is a small amount of stool in the rectum. The mass felt on bimanual examination above is palpable and does not seem to be consistent with rectal stool. EXTREMITIES: Nontender. IMPRESSION: 1. 76-year-old menopausal female with a several month history of abdominal bloating and constipation. 2. Palpable pelvic mass on bimanual examination. Differential diagnosis will include hard colonic stool and possible ovarian mass. Given her constipation and, I think the former is more likely. 3. Tinea corporis (ringworm) on the anterior chest wall and right axilla. 4. History of bilateral breast cancer status post bilateral mastectomies. PLAN: 1. Pap smears have been discontinued. 2. Breast awareness was discussed with the patient. 3. Mammograms have been discontinued. 4. Pelvic ultrasound as recommended because of the palpable pelvic mass and abdominal bloating. This will be used to check for ovarian neoplasm. I have asked the patient to try to empty her bowels as completely as possible and she can continue to use fiber supplements and also recommended she can consider Senokot [id number] as directed. The order slip for a pelvic ultrasound was given to the patient. She states she is also planning to see a GI specialist regarding her constipation and bloating. 5. Ketoconazole 2% cream daily 2 weeks to the affected areas on the chest wall and axilla. She was instructed to keep the appointment with the chip frier next month. The electronic prescription will be sent to [facility] pharmacy on . 6. She has completed her Covid vaccination series and did receive a booster. 7. She was advised to return in one year for her annual well woman exam and as needed.
== END | disposition home or self-care (01) ==
LOC: WWCWWP 10:28
PROVIDERS: ATTEND Obstetrics & Gynecology
DX: Z53.9 Procedure and treatment not carried out, unspecified reason (principal)

== ENCOUNTER → 2022-03-01 | Outpatient (CLI) | payer MEDICARE ==
--- NOTE | 2022-03-01 11:47 | US ---
EXAMINATION TYPE: US pelvic complete DATE OF EXAM: 03/01/2022 COMPARISON: NONE CLINICAL HISTORY: 76-year-old female R19.09 PELVIC MASS, R14.0 ABDOMINAL BLOAT. Bloating. . No pe lvic surgeries TECHNIQUE: Transabdominal sonographic images of the pelvis were acquired. Pt refused transvaginal exa m. Date of LMP: unknown FINDINGS: EXAM MEASUREMENTS: Uterus: 4.0 x 3.4 x 2.5 cm Endometrial Stripe: 0.3 cm Right Ovary: Not Vis. Left Ovary: Not Vis. 1. Uterus: Anteverted and otherwise wnl 2. Endometrium: wnl 3. Right Ovary: Obscured by overlying bowel gas 4. Left Ovary: Obscured by overlying bowel gas 5. Bilateral Adnexa: Excessive bowel gas was visualized in both adnexa. 6. Posterior cul-de-sac: wnl Questionable lobular thickening along the anterior and fundal aspect of the bladder. IMPRESSION: 1. Questionable lobular thickening along the anterior and fundal aspect of the bladder. The sonograph er comments on excessive peristalsing bowel filling both adnexa and obscuring the ovaries. Consider f urther evaluation with contrast-enhanced CT. 2. The endometrial stripe is measured thin at 3 mm.
== END | disposition home or self-care (01) ==
LOC: RADUSWWP 10:47
PROVIDERS: ATTEND Obstetrics & Gynecology
DX: R14.0 Abdominal distension (gaseous) (principal)
CPT/HCPCS: 76856

== ENCOUNTER → 2022-03-23 | Outpatient (CLI) | payer MEDICARE ==
[2022-03-23 10:49] LABS: African American GFR (CKD) >90 (>60 ml/min/1.73 sqM); Blood Urea Nitrogen 15 mg/dL (7-17); Non-African American GFR(CKD) 86 (>60 ml/min/1.73 sqM)
--- NOTE | 2022-03-23 16:30 | CT ---
EXAMINATION TYPE: CT abdomen pelvis w con CT DLP: 706 mGycm, Automated exposure control for dose reduction was used. DATE OF EXAM: 03/23/2022 12:17 PM COMPARISON: Pelvic ultrasound 03/01/2022 CLINICAL INDICATION:Female, 76 years old with history of R19.09,R14.0,R93.8; Bloating and constipatio n TECHNIQUE: Standard CT of the abdomen and pelvis following the administration of 100 cc of Isovue 3 00 IV contrast material and oral contrast. Coronal and sagittal reformats were performed. FINDINGS: Examination is limited due to posterior ventral abdominal fat. LOWER CHEST: Left lower lobe 9 mm pulmonary nodule (series 4, image 11). Right posterior fat-containi ng Bochdalek hernia. ABDOMEN LIVER: Unremarkable GALLBLADDER AND BILE DUCTS: Contracted appearing gallbladder. No biliary ductal dilatation. PANCREAS: Unremarkable. SPLEEN: Unremarkable. ADRENAL GLANDS: Unremarkable. KIDNEYS AND URETERS: No evidence of hydronephrosis or renal calculus. No suspicious lesion. PELVIS BLADDER: Unremarkable REPRODUCTIVE: Retroverted uterus. ABDOMEN & PELVIS STOMACH AND BOWEL: Small hiatal hernia, duodenum is unremarkable. Moderate to large amount of stool i s present within the colon. No focal wall thickening or surrounding inflammatory changes. The appendi x is not definitively visualized however there is no significant inflammatory changes within the righ t upper quadrant. No evidence of bowel obstruction. Enteric contrast reaches the distal small bowel. PERITONEUM: No evidence of pneumoperitoneum or free fluid. Pelvic floor laxity. VASCULATURE: Mild atherosclerotic calcifications are present throughout the abdominal aorta and its b ranches. No evidence of aortic aneurysm. MUSCULOSKELETAL: No acute osseous abnormalities. Degenerative changes of visualized spine. Grade 2 an terolisthesis of L4 on L5 without definitive pars defects. Osteoarthritic changes of both hips. Scler otic focus within the left pubis measuring 1.4 cm is favored to represent a benign bone island. LYMPH NODES: No gross evidence for lymphadenopathy. SOFT TISSUE/ABDOMINAL WALL: Mild anasarca. IMPRESSION: 1. Moderate colonic stool burden. Otherwise no acute process within the abdomen and pelvis. 2. Left lower lobe 9 mm pulmonary nodule. Consider further evaluation with PET/CT versus [address] c hest follow-up.
== END | disposition home or self-care (01) ==
LOC: RADCTMAIN 09:38
PROVIDERS: ATTEND Obstetrics & Gynecology
DX: R14.0 Abdominal distension (gaseous) (principal); R92.8 Other abnormal and inconclusive findings on diagnostic imaging of breast
CPT/HCPCS: 82565; 84520; 74177; 36415; Q9967 ×2

== ENCOUNTER → 2022-04-11 | Outpatient (CLI) | payer MEDICARE ==
[2022-04-11 16:55] LABS: African American GFR (CKD) >90 (>60 ml/min/1.73 sqM); Blood Urea Nitrogen 18 mg/dL (7-17); Non-African American GFR(CKD) 86 (>60 ml/min/1.73 sqM)
--- NOTE | 2022-04-11 20:29 | CT ---
EXAMINATION TYPE: CT chest w con CT DLP: 143.10 mGycm, Automated exposure control for dose reduction was used. DATE OF EXAM: 04/11/2022 5:44 PM COMPARISON: 07/26/2010. 03/23/2022 CT. CLINICAL INDICATION:Female, 76 years old with history of J98.4 OTHER DISORDERS OF LUNG, lung nodule TECHNIQUE: Multiple axial images were obtained through the chest. Sagittal and coronal reformats were created for review. Contrast used:100 mL of Isovue 300 with IV Contrast, none. Oral contrast used: none. FINDINGS: LUNGS/ PLEURA: Redemonstration of 8 mm left lower lobe pulmonary nodule from 19 days prior. No other pulmonary nodules are identified. No evidence of focal consolidation, pneumothorax or pleural effusio n. Mild paraseptal emphysema changes are present AIRWAY: Patent and unremarkable. HEART: The heart is mildly enlarged for size. There is mild coronary artery atherosclerosis changes. MEDIASTINUM: No gross evidence of adenopathy. VASCULATURE: No aortic aneurysm. MUSCULOSKELETAL: No acute osseous abnormalities, moderate multilevel disc degeneration changes are se en throughout the spine. There is increased kyphosis of the midthoracic spine. SOFT TISSUES/LYMPH NODES: The breasts have been surgically removed. LOWER NECK: No significant findings. UPPER ABDOMEN: No significant findings. IMPRESSION: Stable left lower lobe pulmonary nodule measuring 8 mm compared to 19 days prior on 03/23/2022. No add itional pulmonary nodules. Follow-up in 6 months is recommended to ensure stability.
== END | disposition home or self-care (01) ==
LOC: RADCTMAIN 16:22
PROVIDERS: ATTEND Internal Medicine Hematology & Oncology
DX: R91.1 Solitary pulmonary nodule (principal)
CPT/HCPCS: 82565; 84520; 71260; 36415; Q9967

== ENCOUNTER → 2023-07-17 | Outpatient (CLI) | payer MEDICARE ==
[2023-07-17 15:36] LABS: HCT 41.1 % (37.2-46.3); HGB 13.5 g/dL (12.0-15.0); MCH 31.1 pg (27.0-32.0); MCHC 32.8 g/dL (32.0-37.0); MCV 94.7 FL (80.0-97.0); Mean Platelet Volume 10.1 FL (9.5-12.2); NRBC Per 100 WBC 0 X 10*3/uL (0.00-0.01); Platelet Count 258 X 10*3/uL (140-440); RBC 4.34 X 10*6/uL (4.10-5.20); RDW 13.4 % (11.5-14.5); WBC 3.51 X 10*3/uL (4.50-10.00)
[2023-07-17 15:56] LABS: ALT 19 U/L (8-44); AST 28 U/L (13-35); Albumin 4.4 g/dL (3.8-4.9); Albumin/Globulin Ratio 1.69 Ratio (1.60-3.17); Alkaline Phosphatase 82 U/L (41-126); BUN/Creat Ratio 22.86 Ratio (12.00-20.00); Calcium 9.7 mg/dL (8.7-10.3); Carbon Dioxide 24.2 mmol/L (21.6-31.8); Chloride 100 mmol/L (96-109); Globulin 2.6 g/dL (1.6-3.3); Glucose 88 mg/dL (70-110); Potassium 4.9 mmol/L (3.5-5.5); Sodium 134 mmol/L (135-145); Total Bilirubin 0.3 mg/dL (0.3-1.2)
[2023-07-17 17:58] LABS: Appearance,Urine Clear (Clear); Bilirubin,Urine Negative (Negative); Blood,Urine Negative (Negative); Color,Urine Yellow (Yellow); Ketones,Urine Negative (Negative); Nitrite,Urine Negative (Negative); PH, Urine 7.5; Specific Gravity,Urine 1.008 (1.001-1.030); Urobilinogen,Urine 0.2 E.U./DL
[2023-07-17 18:09] LABS: Bacteria,Urine 3+ (None Seen)
== END | disposition home or self-care (01) ==
LOC: LABPAT 08:20
PROVIDERS: ATTEND Orthopaedic Surgery
DX: Z01.812 Encounter for preprocedural laboratory examination (principal); M16.12 Unilateral primary osteoarthritis, left hip
CPT/HCPCS: 80053; 81001; 85027; 86850; 86900; 86901; 87070

== ENCOUNTER → 2023-07-18 | Outpatient (CLI) | payer MEDICARE ==
[2023-07-18 15:02] LABS: INR 0.9 (<1.2); Partial Thromboplastin Time 25.6 sec (22.0-30.0); Prothrombin Time 10.1 sec (10.0-12.5)
== END | disposition home or self-care (01) ==
LOC: LABWHC1 14:21
PROVIDERS: ATTEND Orthopaedic Surgery
DX: Z01.812 Encounter for preprocedural laboratory examination (principal); M16.12 Unilateral primary osteoarthritis, left hip
CPT/HCPCS: 36415; 85610; 85730

== ENCOUNTER 2023-07-28 08:30 | Day surgery (SDC) | payer MEDICARE ==
[~2023-07-28 08:30] MED LIST changes: +ACETAMINOPHEN TAB 500 MG TAB PO PRN; +DEXAMETHASONE SOD PHOSPHATE 10 MG/ML 1 ML VIAL IV PRN; +DEXAMETHASONE SOD PHOSPHATE 4 MG/ML 1 ML VIAL IV ONE; +DOCUSATE 100 MG CAP PO PRN; +FAMOTIDINE 20 MG/2 ML VIAL IVP PRN; +HYDROmorphone 0.5 MG/0.5 ML SYRINGE IVP PRN; +KETOROLAC 15 MG/ML 1 ML VIAL IVP PRN; -LACTATED RINGERS 1,000 ML IV SCH; -LIDOCAINE 1% (10MG/ML) FOR IV START INTRADERMA ONE; +LIDOCAINE 1% (10MG/ML) FOR IV START INTRADERMA PRN; -LIDOCAINE 1% INJ 10MG/ML (20 ML MDV) ONE; +MIDAZOLAM 2 MG/2 ML VIAL IV PRN; +ONDANSETRON 4 MG/2 ML VIAL IVP ONE; +ONDANSETRON 4 MG/2 ML VIAL IVP PRN; -PROPOFOL 10 MG/ML 20 ML VIAL IV ONE; +ROPIVACAINE/EPI/CLONIDINE/KET 50 ML SYRINGE MISCELLANE PRN; +TRANEXAMIC 1,000 MG/100ML-NACL 1,000 MG in SALINE 1 100ML.BAG IV PRN; +TRANEXAMIC 1,000 MG/100ML-NACL 1,000 MG in SALINE 1 100ML.BAG IVPB PRN; +oxyCODONE ER 10 MG TAB.ER.12H PO PRN
[2023-07-28] MEDS: LACTATED RINGERS 1,000 ML IV SCH ×2 (09:20→17:01)
--- NOTE | 2023-07-28 09:52 | P.ANPRN ---
Procedure Note - Anesthesia - Nerve Block Performed Left Charles Single Time Out Performed: Yes ([id number]) Date of Procedure: 07/28/23 Procedure Start Time: :42 Procedure Stop Time: 09:46 Location of Patient: PreOp Indication: Acute Post-Operative Pain, Requested by Surgeon Sedation Type: Sedate with meaningful contact maintained Preparation: Sterile Prep Position: Supine Catheter: None Needle Types: Pajunk Needle Gauge: 21 Ultrasound used to visualize needle placement: Yes Ultrasound used to observe medication spread: Yes Injectate: 0.5% Ropivacaine (see comment for volume) (20 mL of 0.5% ropivacaine mixed with 40 MG of dexamethasone) Blood Aspirated: No Pain Paresthesia on Injection Noted: No Resistance on Injection: Normal Image Stored and Saved: Yes Events: Uneventful and Well Tolerated
[2023-07-28] MEDS ORDERED: PROPOFOL 10 MG/ML 20 ML VIAL IV ONE (10:30)
[2023-07-28] MEDS ORDERED: WATER FOR INJECTION, STERILE 10 ML VIAL IV ONE (10:30)
[2023-07-28] MEDS ORDERED: LIDOCAINE 1% INJ 10MG/ML (20 ML MDV) ONE (10:30)
[2023-07-28] MEDS ORDERED: fentaNYL (PF) 50 MCG/ML 2 ML AMP ONE (10:30)
[2023-07-28] MEDS ORDERED: ROCURONIUM 10 MG/ML (5 ML VIAL) IV ONE (10:30)
[2023-07-28] MEDS ORDERED: ePHEDrine 50 MG/ML 1 ML VIAL ONE (10:30)
[2023-07-28] MEDS ORDERED: MIDAZOLAM 2 MG/2 ML VIAL ONE (10:30)
[2023-07-28] MEDS ORDERED: SUCCINYLCHOLINE CHLORIDE 200 MG/10 ML VIAL IV ONE (10:30)
[2023-07-28] MEDS ORDERED: GLYCOPYRROLATE 0.2 MG/ML 2 ML VIAL ONE (10:30)
[2023-07-28] MEDS ORDERED: NEOSTIGMINE 1 MG/ML 10 ML VIAL ONE (10:30)
[2023-07-28] MEDS ORDERED: TRANEXAMIC 1,000 MG/100ML-NACL PREMIX BAG ONE (10:30)
[2023-07-28] MEDS ORDERED: EPINEPHrine 2 MG in SODIUM CHLORIDE 0.9% 200 ML IV ONE (10:50)
[2023-07-28] MEDS ORDERED: SODIUM CHLORIDE 0.9% 200 ML with EPINEPHrine 2 MG IV ONE ×2 (11:18)
[2023-07-28] MEDS ORDERED: LACTATED RINGERS 1,000 ML IV ONE (12:27)
--- NOTE | 2023-07-28 12:52 | FL ---
Intraoperative/procedural fluoroscopic services were provided. Total fluoroscopy time is 31 seconds w ith a total of 7 submitted images to PACS. Please see the operative/procedural note for further detai ls. DAP: 0.9658 mGym2 Gycm2
[2023-07-28] MEDS ORDERED: hydrOXYzine pamoate 25 MG CAP PO PRN (13:10)
[2023-07-28] MEDS ORDERED: HYDROmorphone 0.5 MG/0.5 ML SYRINGE IVP PRN (13:10)
[2023-07-28] MEDS ORDERED: ONDANSETRON 4 MG/2 ML VIAL IVP PRN (13:10)
[2023-07-28] MEDS ORDERED: NALOXONE 0.4 MG/ML 1 ML VIAL IV PRN (13:10)
[2023-07-28] MEDS ORDERED: diazePAM 5 MG TAB PO PRN (13:10)
--- NOTE | 2023-07-28 13:10 | P.OP ---
Date of Procedure: 07/28/23 Preoperative Diagnosis: 1. Severe left hip osteoarthritis 2. Rheumatoid arthritis 3. History of breast cancer Postoperative Diagnosis: Same Procedure(s) Performed: Left direct anterior total hip arthroplasty Implants: 1. Juli Trident II Acetabular Cup, Size #48 2. Juli Accolade C Size #5 Femoral Stem, Standard Offset 3. Dual Mobility OD 38 mm, ID 22.2 mm, +0 neck Anesthesia: [place], regional Surgeon: Kevin Moser Body Make Up Artist #1: Shanon Crump Estimated Blood Loss (ml): 200 IV fluids (ml): 1,000 Pathology: none sent Condition: stable Disposition: PACU Indications for Procedure: I had a long discussion with the patient in the office on the potential risks and complications of an elective total hip replacement through a direct anterior approach. Risks discussed include, but are certainly not limited to, risks from anesthesia, superficial infection requiring local wound care or antibiotics, deep nelda-prosthetic joint infection and the treatment required to eradicate infection, intraoperative fracture, postoperative periprosthetic fracture, damage to local blood vessels or nerves particularly the lateral femoral cutaneous nerve, delayed wound healing requiring local wound care or possibly surgical debridement, hip dislocation, leg length discrepancy, soft tissue irritation around the total hip implant such as iliopsoas tendinitis or trochanteric bursitis, wear and osteolysis from the implants, squeaking or audible noises, groin pain, thigh pain, heterotopic ossification, stiffness, aseptic loosening of the implants, dissatisfaction with surgical outcome, need for revision surgery, DVT, PE, swelling of the operative extremity, acute coronary event, stroke, failure to thrive, and possibly loss of life or limb. The patient understands that while these are the most common complications after an elective hip replacement there are certainly other less common complications possible. They were given ample time to ask questions regarding the potential complications of a hip replacement. Following our discussion the patient provided their verbal and written consent to go forward with an elective total hip replacement. Operative Findings: Severe osteopenia consistent with her age and history of present arthritis. Severe osteoarthritis of both the femoral head and acetabulum Description of Procedure: The patient was identified in the preoperative holding area and the correct hip was marked with my initials. I reviewed the procedure and consent with the patient. All of their questions were answered. The patient was then brought back into the operating room by anesthesia. While on the [facility] anesthesia was administered by the anesthesia team. Preoperative antibiotics and tranexamic acid were also given. After the patient was under anesthesia I examined their ankles to determine their preoperative leg length discrepancy. The skin over the anterior aspect of the hip was shaved to remove hair over the site of planned incision. Both feet and ankles were padded with webril and boots for the [place] were applied. The patient was then carefully transferred onto the [place] table. A perineal post was immediately placed. The arms were placed on arm holders and were well-padded. Both boots were secured to the spars on the [place] table. The patient was positioned so that the pelvis was centered over the post. Nonsterile drapes were applied. A timeout was performed identifying the correct patient, operative extremity, and procedure. At this point fluoroscopy was brought in to take preoperative images of the pelvis and operative hip. Using the standing AP pelvis from the office as a template, a comparable image was obtained with fluoroscopy. A metallic bar was used to create a bi-ischial line for use as a reference to leg length adjustments during the procedure. Global offset was also measured on both the operative and nonoperative leg. Fluoroscopy was then brought out and a pre-scrub using a chlorhexidine scrub brush was performed. The operative limb was then prepped and draped in the standard sterile fashion. An anterior longitudinal incision was made lateral and distal to the ASIS. The skin and subcutaneous tissues were incised sharply. The underlying tensor fascia was identified and incised in its midportion. The fascia was dissected free from the underlying muscle and the muscle belly was retracted. A blunt tipped cobra retractor was placed over the superior neck under the muscle fibers of the gluteus minimus. The deep enveloping fascia of the tensor was incised. The anterior leash of vessels were then identified and cauterized. The fascia between the rectus and the capsule was then incised and the pre-capsular fat was excised. A second Cobra was placed inferior to the neck. The interval between the rectus and iliocapsularis and the hip capsule was developed and a retractor was placed carefully over the anterior rim of the acetabulum. A T-shaped ant erior capsulotomy was performed. The superior capsular leaflet was left in place in the inferior capsular flap was excised. The Cobra retractors were placed intracapsularly. We then made a femoral neck osteotomy according to preoperative and intraoperative templating and confirmed the level of the osteotomy using fluoroscopic imaging. The femoral head was removed, passed off to the back table, and sized. The superior capsular flap was excised. Retractors were placed circumferentially exposing the acetabulum. We then circumferentially debrided the acetabulum free of labrum and osteophytes. The pulvinar was removed to fully visualize the cotyloid fossa. We then sequentially reamed to achieve peripheral fit and excellent bleeding subchondral bone. The socket was thoroughly irrigated. The acetabular component was impacted into the appropriate position using fluoroscopy to guide version, inclination, and depth of insertion taking care to have a comparable image of the AP pelvis to the standing image taken in the office. An excellent press-fit was achieved and final position was confirmed using fluoroscopy. The press fit was augmented with bony cancellus dome screws. The liner was then impacted into the socket. Attention was then turned to the femur. The remnant dorsal lateral capsule was excised. The short external rotators were visible and protected. A bone hook w as used to confirm appropriate translation of the trochanter away from the acetabulum. The leg was then extended and adducted and the bone hook was used to elevate the femur for broaching. On inspection of the patient's proximal femur, they appeared to have poor bone quality so I elected to proceed with cemented fixation of the femoral component. A box osteotome and blunt tipped canal sound was then utilized to gain access to the femoral canal. We then sequentially broached the femur in appropriate anteversion until torsional stability was achieved and the implant was felt to have reached the appropriate size to allow trialing. The neck cut was brought flush to the trial broach with a calcar planar. A trial neck and head were then placed onto the broach and the hip was atraumatically reduced under direct visualization. External rotation to 90 was performed to assess stability. Fluoroscopy was brought in. An AP and lateral fluoroscopic image of the proximal femur was obtained to assess position and fill of the trial broach. An AP of the pelvis was then obtained and matched to the preoperative image taken. A bi-ischial bar was then placed and measurements were taken to assess changes in length and offset. The hip was then carefully dislocated, the proximal femur was exposed, and the trial implants were removed. The proximal femur was then prepared for cementing. The canal was thoroughly irrigated with pulsatile lavage to remove blood and marrow contents. A cement restrictor was placed to a depth just distal to the tip of the final implant. Epinephrine-soaked gauze was then packed into the proximal femur. 2 bags of cement were then mixed using a centrifuge and placed into a cement gun. Anesthesia was notified that cementing was about to commence to make sure the patient was appropriately ventilated and hydrated. Once the cement had reached appropriate consistency, the cement gun was used to fill the canal in a retrograde fashion starting at the restrictor. Cement was then pressurized into the canal with a blue tipped exterminator. The stem was then carefully introduced into the cement taking care to guide the implant into appropriate version. The stem was held in position until the cement had fully set. All extra cement was removed while the cement was hardening. The trunnion was cleansed and the final head was tapped into place to engage the Randall taper. The acetabulum was irrigated and visualized to be free of debris. The hip was carefully reduced. Stability was checked clinically with external rotation to 90 and there was no evidence of instability. Final fluoroscopic images were taken. The wound was then thoroughly irrigated and soaked with a dilute Betadine rinse for 3 minutes. 3 L of sterile saline was irrigated through the wound using pulsatile lavage. Local anesthetic cocktail was injected into the soft tissues around the surgical field. A deep drain was placed. The wound was then closed in layers. A sterile dressing was placed over the surgical incision and drain site. The drapes were taken down and the patient was carefully transferred off of the [place] table. Following removal of the boots the leg lengths felt acceptable. The patient was then taken to recovery room having tolerated the procedure well. Shanon Crump DO is required as a skilled religious assistant due to the complexity of the surgery for patient positioning, exposure, retraction, placement of implants, closure of wound, and application of dressing. PLAN: The patient can weight-bear as tolerated on the operative extremity. 2 doses of postoperative antibiotics. DVT prophylaxis with aspirin 81 mg twice a day based on preoperative risk stratification. Physical therapy for gait training. Discontinue drain postoperative day #1 if output is less than 100 mL per shift.
--- NOTE | 2023-07-28 18:38 | P.HPIM ---
History of Present Illness H&P Date: 07/28/23 Patient is a 78-year-old female with Raynauds, severe left hip osteoarthritis, rheumatoid arthritis, and prior breast cancer who presented for elective left direct anterior hip total arthroplasty Patient seen and examined at bedside. Doing well. No significant amount pain. No postop vomiting but slight nausea. Vital signs reviewed General: nontoxic, no distress, appears at stated age Derm: warm, dry Cardiovascular: S1S2 reg, no murmur, positive posterior tibial pulse bilateral, no edema Lungs: clear to auscultation bilateral, no rhonchi, no rales, no wheeze, no accessory muscle use Abdominal: soft, nontender to palpation, no guarding, no appreciable organomegaly, normal bowel sounds Ext: no gross muscle atrophy, no contracture. Neuro: CN II-XII grossly intact, No focal neuro deficits Psych: Alert, oriented, appropriate affect Assessment/Plan: 78-year-old female status post left total hip arthroplasty Raynauds disease -Resume Procardia 30 mg daily Rhaumatoid arthritis - on once monthly biologic. WIll follow with rheumatology. Data Review: Preop labs reviewed hemoglobin 13.5 him a sodium 134, creatinine 0.7 Thank you for allowing us to participate in the care of this pleasant patient. Do not hesitate to contact us with questions. Someone can be reached from the [facility] hospitalist group all hours of the day at [phone] or via [employer] This dictation was prepared using [employer] voice recognition software. Though every attempt is made to correct errors during dictation some may still exist. Past Medical History Past Medical History: Cancer, Osteoarthritis (OA), Rheumatoid Arthritis (RA) Additional Past Medical History / Comment(s): Right breast cancer in 1995, left breast cancer 2012. last chemo 1995 takes nifedipine for Raynauds, not high BP, history of osteopenia (s/p 2 yrs use of bisphosphonates in the past). Rosacea History of Any Multi-Drug Resistant Organisms: None Reported Past Surgical History: Breast Surgery, Orthopedic Surgery Additional Past Surgical History / Comment(s): Right mastectomy 1995, left mastectomy 2012. Bunionectomy. Colonoscopy 2019. Bilateral cataract surgeries. Past Anesthesia/Blood Transfusion Reactions: No Reported Reaction Smoking Status: Never smoker - Past Family History Mother Family Medical History: Cancer Additional Family Medical History / Comment(s): Unknown type of cancer. Sister(s) Family Medical History: Cancer Additional Family Medical History / Comment(s): Lymphoma. Medications and Allergies Home Medications Medication Instructions Recorded Confirmed Type Certolizumab Pegol [Cimzia] 400 mg INJ Q28D 01/17/18 07/28/23 History NIFEdipine XL [Procardia XL] 30 mg PO DAILY 01/17/18 07/28/23 History Cyanocobalamin (Vitamin B-12) 1,000 mcg PO DAILY 07/19/23 07/28/23 History [Vitamin B-12] Glucosa Elizabeth 2Kcl/Chondroitin Elizabeth 1 each PO DAILY 07/19/23 07/28/23 History [Glucosamine-Chondroitin Cap] Healthy Vision 1 tab PO DAILY 07/19/23 07/28/23 History L.acidoph,Paracasei, B.lactis 1 each PO DAILY 07/19/23 07/28/23 History [Probiotic] Magnesium 250 mg PO DAILY 07/19/23 07/28/23 History Multivitamins, Thera [Multivitamin 1 tab PO DAILY 07/19/23 07/28/23 History (formulary)] Plecanatide [Trulance] 3 mg PO DAILY 07/19/23 07/28/23 History Ubidecarenone [Co Q-10] 100 mg PO BID 07/19/23 07/28/23 History Zinc Gluconate [Zinc] 50 mg PO DAILY 07/19/23 07/28/23 History Aspirin 81 mg PO BID #60 tab 07/28/23 Rx Diclofenac Sodium [Voltaren] 75 mg PO BID #60 tab 07/28/23 Rx Docusate [Colace] 100 mg PO BID #30 capsule 07/28/23 Rx HYDROcodone/APAP 5-325MG [[place] 1 - 2 tab PO Q6HR PRN #32 tab 07/28/23 Rx 5-325] Omeprazole 40 mg PO DAILY #30 cap 07/28/23 Rx Allergies Allergy/AdvReac Type Severity Reaction Status Date / Time Latex, Natural Rubber Allergy Rash/Hives Verified 07/28/23 09:08 Physical Exam Osteopathic Statement: *. No significant issues noted on an osteopathic structural exam other than those noted in the History and Physical/Consult. Vitals: Vital Signs Temp Pulse Resp BP BP Pulse Ox 07/28/23 17:25 76 123/80 12/01/23 17:10 86 111/78 07/28/23 16:56 81 124/72 07/28/23 16:40 94 123/65 100 07/28/23 16:26 57 L 111/64 07/28/23 16:10 91 93/54 91 L 07/28/23 15:55 59 L 110/71 97 07/28/23 15:41 65 98/61 100 07/28/23 15:25 60 115/69 100 07/28/23 15:22 97.5 F L 60 16 115/69 100 07/28/23 15:00 50 L 16 111/64 100 07/28/23 14:45 50 L 16 101/64 100 07/28/23 14:30 59 L 16 97/63 100 07/28/23 14:15 59 L 16 100/65 100 07/28/23 14:00 55 L 16 101/62 100 07/28/23 13:45 61 16 98/62 100 07/28/23 13:36 64 16 108/68 99 07/28/23 13:21 61 16 106/67 100 07/28/23 13:06 98.4 F 66 16 102/62 100 07/28/23 09:45 54 L 14 120/85 100 07/28/23 09:38 58 L 14 135/81 100 07/28/23 08:59 97.7 F 61 16 134/77 98 Intake and Output 07/28/23 07/28/23 07/28/23 06:59 14:59 22:59 Intake Total 1451 Output Total 200 Balance 1251 Intake: IV 1451 Output: Estimated Blood Loss 200 Other: # Voids 0 Weight 54.4 kg 54.4 kg Thrombosis Risk Factor Assmnt - Choose All That Apply Any of the Below Risk Factors Present?: No Other Risk Factors: Yes Each Risk Factor Represents 3 Points: Age 75 years or older Thrombosis Risk Factor Assessment Total Risk Factor Score: 3 Thrombosis Risk Factor Assessment Level: Moderate Risk
[2023-07-28] MEDS ORDERED: SODIUM CHLORIDE 0.9% 1,000 ML IV ONE (19:51)
[2023-07-28] MEDS: ASPIRIN 81 MG PO SCH (21:32)
[2023-07-28] MEDS: SENNOSIDES-DOCUSATE SODIUM 1 EACH TAB PO SCH (21:32)
[2023-07-29] MEDS: HYDROcodone/APAP 5-325MG 1 EACH TAB PO PRN ×4 (01:35→19:27)
[2023-07-29 04:56] LABS: HCT 25.5 % (34.0-46.0); HGB 8.4 gm/dL (11.4-16.0); MCH 32.1 pg (25.0-35.0); MCHC 33.2 g/dL (31.0-37.0); MCV 96.8 fL (80.0-100.0); Mean Platelet Volume 7.7; Platelet Count 211 k/uL (150-450); RBC 2.63 m/uL (3.80-5.40); RDW 13.2 % (11.5-15.5); WBC 7.1 k/uL (3.8-10.6)
[2023-07-29] MEDS: LACTATED RINGERS 1,000 ML IV SCH ×4 (05:49→22:25)
--- NOTE | 2023-07-29 06:32 | P.PN ---
Subjective Progress Note Date: 07/29/23 The patient was seen and evaluated at bedside this morning. Over the night according to the nurse and the patient she has had issues with hypotension and becoming lightheaded when getting up at bedside. This morning she is complaining of some vague discomfort in her eyes. She is also having pain in her left hip. She denies chest pain or feeling lightheaded. Objective - Vital Signs Vital signs: Vital Signs Temp 97.5 F L 07/29/23 01:20 Pulse 68 07/29/23 01:20 Resp 18 07/29/23 01:20 BP 92/58 07/29/23 01:20 Pulse Ox 97 07/29/23 01:20 FiO2 Intake & Output 07/28/23 07/28/23 07/29/23 06:59 18:59 06:59 Intake Total 1451 Output Total 200 570 Balance 1251 -570 Weight 54.4 kg Intake: IV 1451 Output: Drainage 20 Left Hip 20 Urine 550 Straight 550 Estimated Blood Loss 200 Other: # Voids 0 1 - Exam The patient is resting comfortably in her bed. She is alert and able to answer questions. On inspection of the left hip there is no intact dressing with no drainage or strike through. Hemovac was removed without difficulty. Her thigh is mildly swollen but soft and compressible. Femoral nerve function is intact. Distally she is able to actively plantarflex her ankle and her toes. - Labs CBC & Chem 7: 07/29/23 04:04 Labs: Abnormal Lab Results - Last 24 Hours (Table) 07/29/23 Range/Units 04:04 RBC 2.63 L (3.80-5.40) m/uL Hgb 8.4 L (11.4-16.0) gm/dL Hct 25.5 L (34.0-46.0) % Assessment and Plan Assessment: Postoperative day #1 status post left direct anterior total hip arthroplasty Rheumatoid arthritis Severe osteopenia History of breast cancer Plan: 1. Weight-bear as tolerated left lower extremity, up with assistance and a walker. Mobilize up out of bed to chair is able 2. DVT prophylaxis with aspirin 81 mg twice a day 3. 2 doses postoperative Ancef 4. Appreciate internal medicine's assistance of perioperative medical management 5. Hemovac drain removed this morning, otherwise leave surgical dressing in place 6. Dispo: We'll plan on seeing how the patient does with physical therapy this morning. She may require detention facility or rehab upon discharge. If she is cleared for discharge home, I would like to keep her in-house at least for another day until her hypotension and medical issues resolve.
[2023-07-29] MEDS: NIFEdipine XL 30 MG TAB.ER.24 PO SCH (09:32)
[2023-07-29] MEDS: ASPIRIN 81 MG PO SCH ×2 (09:36→20:19)
[2023-07-29] MEDS: CYANOCOBALAMIN 500 MCG TAB PO SCH (09:36)
[2023-07-29] MEDS ORDERED: SODIUM CHLORIDE 0.9% 500 ML 500 ML IV ONE ×2 (10:35→18:06)
--- NOTE | 2023-07-29 10:38 | P.PN ---
Subjective Progress Note Date: 07/29/23 Hospital course: Patient is a very pleasant 78-year-old female with a past medical history of Raynaud's disease, rheumatoid arthritis, breast cancer status post bilateral mastectomy and chemotherapy treatments, and severe osteoarthritis. Patient is admitted under orthopedic surgery team status post elective left direct anterior total hip arthroplasty. We have been consulted for medical management throughout patient's hospitalization. Physical exam: General: non toxic, no distress, appears at stated age Derm: warm, dry Head: atraumatic, normocephalic, symmetric Eyes: EOMI, no lid lag, anicteric sclera Mouth: no lip lesion, mucus membranes moist Cardiovascular: S1S2 reg, systolic murmur, positive posterior tibial pulse bilaterally, cap refill less than 2 seconds. Lungs: CTA bilateral, no rhonchi, no rales , no accessory muscle use Abdominal: soft, nontender to palpation, no guarding, no appreciable organomegaly Ext: no gross muscle atrophy, no edema, no contractures. Movement and sensation intact. Postoperative dressing in place right anterior hip/thigh and is clean, dry, and intact. Neuro: CN II-XI grossly intact, no focal neuro deficits Psych: Alert, oriented, appropriate affect Assessment and plan: Acute postoperative blood loss anemia, greater than expected Hypotension Urinary retention -Postoperative hemoglobin of 8.4 with preoperative hemoglobin of 13.5 -This is slightly greater than anticipated postoperative blood loss, no signs of active bleeding but will trend hemoglobin levels every 6 hours for the next 24 hours. -Order placed for 500 mL bolus for hypotension and urinary retention -Order placed for bladder scan to monitor for urinary retention/post void residuals. -Close monitoring of intake and output. -Order placed for BMP to evaluate renal function. -Continuation of IV fluid hydration with lactated Ringer's at 100 mL per hour. -Order placed for telemetry monitoring. Raynauds disease -Resume Procardia 30 mg daily Rhaumatoid arthritis -Patient is on once monthly biologic. Recommending continuation of current medication regimen and outpatient follow-up with rheumatology as scheduled. Status post left total hip arthroplasty -Management per primary admitting orthopedic surgery team including DVT prophylaxis, pain management, weightbearing, wound/dressing management, and PT/OT. -Patient currently with DVT prophylaxis with aspirin 81 mg twice daily. Data and imaging reviewed: -Postoperative labs reviewed. CBC showing postoperative hemoglobin of 8.4 with preoperative hemoglobin of 13.5. -Vital signs reviewed. Blood pressures soft currently with blood pressure 190/55, heart rate 72, respiratory rate 16, temp 98.5F, SpO2 98% on room air. Thank you for allowing us to participate in the care of this pleasant patient. Do not hesitate to contact us with questions. Someone can be reached from the [facility] hospitalist group all hours of the day at [phone] or via [employer]. Patient was seen independently by Nurse Pracitioner. This document was prepared using [employer] dictation software. Please allow for errors in organizational effectiveness director, while rare they do occur. Objective - Vital Signs Vital signs: Vital Signs Temp 98.5 F 07/29/23 06:49 Pulse 72 07/29/23 06:49 Resp 16 07/29/23 06:49 BP 90/55 07/29/23 06:49 Pulse Ox 98 07/29/23 06:49 FiO2 Intake & Output 07/28/23 07/29/23 07/29/23 18:59 06:59 18:59 Intake Total 1451 Output Total 200 570 Balance 1251 -570 Weight 54.4 kg Intake: IV 1451 Output: Drainage 20 Left Hip 20 Urine 550 Straight 550 Estimated Blood Loss 200 Other: # Voids 0 1 - Labs CBC & Chem 7: 07/29/23 12:06 07/29/23 12:06 Labs: Abnormal Lab Results - Last 24 Hours (Table) 07/29/23 Range/Units 04:04 RBC 2.63 L (3.80-5.40) m/uL Hgb 8.4 L (11.4-16.0) gm/dL Hct 25.5 L (34.0-46.0) %
[2023-07-29 13:18] LABS: HCT 25.4 % (34.0-46.0); HGB 8.4 gm/dL (11.4-16.0); MCH 32.6 pg (25.0-35.0); MCHC 32.9 g/dL (31.0-37.0); Mean Platelet Volume 8.4; Platelet Count 206 k/uL (150-450); RBC 2.57 m/uL (3.80-5.40); RDW 13.4 % (11.5-15.5); WBC 5.5 k/uL (3.8-10.6)
[2023-07-29 13:37] LABS: African American GFR (CKD) >90 (>60 ml/min/1.73 sqM); Anion Gap 9 mmol/L; Blood Urea Nitrogen 23 mg/dL (7-17); Calcium 8.3 mg/dL (8.4-10.2); Carbon Dioxide 20 mmol/L (22-30); Chloride 101 mmol/L (98-107); Glucose 103 mg/dL (74-99); Magnesium 1.9 mg/dL (1.6-2.3); Non-African American GFR(CKD) 87 (>60 ml/min/1.73 sqM); Sodium 130 mmol/L (137-145)
[2023-07-29 13:38] LABS: Potassium 4.6 mmol/L (3.5-5.1)
[2023-07-29] MEDS ORDERED: MAG HYDROX/AL HYDROX/SIMETH 30 ML, HYOSCYAMINE ELIXIR 10 ML, LIDOCAINE VISCOUS 10 ML PO ONE ×3 (13:40)
[2023-07-29] MEDS ORDERED: CALCIUM CARBONATE 500 MG CHEWABLE PO PRN (13:41)
[2023-07-29 19:05] LABS: HCT 25.4 % (34.0-46.0); HGB 8.4 gm/dL (11.4-16.0); MCH 32.1 pg (25.0-35.0); MCHC 32.9 g/dL (31.0-37.0); MCV 97.4 fL (80.0-100.0); Mean Platelet Volume 8.1; Platelet Count 201 k/uL (150-450); RBC 2.61 m/uL (3.80-5.40); RDW 13.5 % (11.5-15.5); WBC 4.7 k/uL (3.8-10.6)
[2023-07-29] MEDS: SENNOSIDES-DOCUSATE SODIUM 1 EACH TAB PO SCH (20:19)
[2023-07-29] MEDS: SODIUM CHLORIDE 0.9% 1,000 ML IV SCH (22:10)
[2023-07-30] MEDS: HYDROcodone/APAP 10-325MG 1 EACH TAB PO PRN ×2 (05:30→20:06)
[2023-07-30] MEDS: SODIUM CHLORIDE 0.9% 1,000 ML IV SCH ×2 (05:31→13:21)
[2023-07-30 05:58] LABS: HCT 23.2 % (34.0-46.0); HGB 7.8 gm/dL (11.4-16.0); MCH 32.3 pg (25.0-35.0); MCHC 33.4 g/dL (31.0-37.0); MCV 96.9 fL (80.0-100.0); Mean Platelet Volume 8.6; Platelet Count 158 k/uL (150-450); RDW 13.3 % (11.5-15.5); WBC 3.2 k/uL (3.8-10.6)
[2023-07-30 06:09] LABS: ALT 14 U/L (4-34); AST 32 U/L (14-36); African American GFR (CKD) >90 (>60 ml/min/1.73 sqM); Albumin 2.7 g/dL (3.5-5.0); Albumin/Globulin Ratio 1.2; Alkaline Phosphatase 55 U/L (38-126); Anion Gap 6 mmol/L; Blood Urea Nitrogen 17 mg/dL (7-17); Calcium 8.1 mg/dL (8.4-10.2); Carbon Dioxide 23 mmol/L (22-30); Chloride 103 mmol/L (98-107); Globulin 2.2 g/dL; Glucose 95 mg/dL (74-99); Magnesium 1.8 mg/dL (1.6-2.3); Non-African American GFR(CKD) 86 (>60 ml/min/1.73 sqM); Potassium 4.1 mmol/L (3.5-5.1); Sodium 132 mmol/L (137-145); Total Bilirubin 0.3 mg/dL (0.2-1.3); Total Protein 4.9 g/dL (6.3-8.2)
[2023-07-30] MEDS: ASPIRIN 81 MG PO SCH ×2 (09:12→20:07)
[2023-07-30] MEDS: NIFEdipine XL 30 MG TAB.ER.24 PO SCH (09:12)
[2023-07-30] MEDS: CYANOCOBALAMIN 500 MCG TAB PO SCH (09:12)
[2023-07-30] MEDS: MAGNESIUM HYDROXIDE 2,400 MG/30 ML CUP PO PRN (11:24)
[2023-07-30] MEDS: HYDROcodone/APAP 5-325MG 1 EACH TAB PO PRN (13:20)
--- NOTE | 2023-07-30 16:38 | P.PN ---
Subjective Progress Note Date: 07/30/23 Overall the patient is to well regards to her left hip. Her hip pain is improved. She's been up and ambulating. She has some burning discomfort in her thigh. She denies chest pain or shortness of breath. Objective - Vital Signs Vital signs: Vital Signs Temp 97.8 F 07/30/23 14:00 Pulse 72 07/30/23 14:00 Resp 17 07/30/23 14:00 BP 93/59 07/30/23 14:00 Pulse Ox 94 L 07/30/23 07:18 FiO2 Intake & Output 07/29/23 07/30/23 07/30/23 18:59 06:59 18:59 Intake Total 1600 480 Output Total 675 1630 550 Balance -675 -30 -70 Intake: Intake, IV Titration 1600 Amount Sodium Chloride 0.9% 1, 1100 000 ml @ 100 mls/hr IV . Q10H [facility] Rx#:[id number] Sodium Chloride 0.9% 500 500 ml 500 ml @ 999 mls/hr IV .Q31M ONE Rx#:[id number] Oral 480 Output: Urine 675 1630 550 Straight 300 Uretheral (Bird) 550 Other: Voiding Method Indwelling Catheter Indwelling Catheter # Voids 1 - Exam The patient is resting comfortably in her bed. She is alert and able to answer questions. A focused exam of the left leg was conducted. The dressing over the drain site is saturated with blood and there is a small amount of strikethrough over her incision dressing. Both were changed and new dressings applied. There is no active drainage from her incision or drain site. There is moderate swelling throughout the left thigh but is soft and compressible. There is resolving ecchymosis. Femoral nerve function is intact. Distally she is able to actively plantar flex and dorsiflex her ankle and her toes. - Labs CBC & Chem 7: 07/30/23 05:13 07/30/23 05:13 Labs: Abnormal Lab Results - Last 24 Hours (Table) 07/29/23 07/30/23 07/30/23 Range/Units 18:22 05:13 05:13 WBC 3.2 L (3.8-10.6) k/uL RBC 2.61 L 2.40 L (3.80-5.40) m/uL Hgb 8.4 L 7.8 L (11.4-16.0) gm/dL Hct 25.4 L 23.2 L (34.0-46.0) % Sodium 132 L (137-145) mmol/L Calcium 8.1 L (8.4-10.2) mg/dL Total Protein 4.9 L (6.3-8.2) g/dL Albumin 2.7 L (3.5-5.0) g/dL Assessment and Plan Assessment: Postoperative day #2 status post left direct anterior total hip arthroplasty Postoperative hypotension Low urine output postoperatively Plan: Plans were reviewed with the patient and her nurse. Appreciate internal [facility]'s assistance with perioperative medical management. The patient's blood pressures have improved and she denies any chest pain or shortness of breath. Her dressings were changed today and there is no active bleeding from either her incision or drain site. Continue treatment as outlined previously. She is medically stable we'll plan for discharge home tomorrow.
--- NOTE | 2023-07-30 17:07 | P.PN ---
Subjective Progress Note Date: 07/30/23 Hospital course: Patient is a very pleasant 78-year-old female with a past medical history of Raynaud's disease, rheumatoid arthritis, breast cancer status post bilateral mastectomy and chemotherapy treatments, and severe osteoarthritis. Patient is admitted under orthopedic surgery team status post elective left direct anterior total hip arthroplasty. We have been consulted for medical management throughout patient's hospitalization. Physical exam: Patient seen and fully evaluated at bedside. Patient is to postoperative day 2 and appears to be doing well this morning, she has been ambulatory in the halls and in room with her and use of walker. Patient reports controlled postoperative pain and states that she has been working on her exercises as instructed. Patient denies having any dizziness, lightheadedness, chest pain, palpitations, shortness of breath, or experiencing any numbness/tingling/weakness. General: non toxic, no distress, appears at stated age Derm: warm, dry Head: atraumatic, normocephalic, symmetric Eyes: EOMI, no lid lag, anicteric sclera Mouth: no lip lesion, mucus membranes moist Cardiovascular: S1S2 reg, systolic murmur, positive posterior tibial pulse bilaterally, cap refill less than 2 seconds. Lungs: CTA bilateral, no rhonchi, no rales , no accessory muscle use Abdominal: soft, nontender to palpation, no guarding, no appreciable organomegaly Ext: no gross muscle atrophy, no edema, no contractures. Movement and sensation intact. Postoperative dressing in place right anterior hip/thigh and is clean, dry, and intact. Neuro: CN II-XI grossly intact, no focal neuro deficits Psych: Alert, oriented, appropriate affect Assessment and plan: Acute postoperative blood loss anemia, greater than expected. Stable. Hypotension, improved. Urinary retention Hyponatremia, improving with IV fluid hydration -Postoperative hemoglobin of 8.4 with preoperative hemoglobin of 13.5. Hemoglobin has trended over the past 24 hours and remained stable resulting at 8.4, 8.4, 8.4, and 7.8. -Bird catheter was placed secondary to urinary retention, discussed with patient and RN at bedside will perform voiding challenge today. -Patient had 2305 mL of urinary output documented over the past 24 hours. -Bladder scan to monitor for urinary retention/post void residuals. -Continued close monitoring of intake and output. -Continuation of IV fluid hydration for additional 24 hours was 0.9% normal saline 100 mL per hour. -Order placed for telemetry monitoring. Raynauds disease -Resume Procardia 30 mg daily Rhaumatoid arthritis -Patient is on once monthly biologic. Recommending continuation of current medication regimen and outpatient follow-up with rheumatology as scheduled. Status post left total hip arthroplasty -Management per primary admitting orthopedic surgery team including DVT prophylaxis, pain management, weightbearing, wound/dressing management, and PT/OT. -Patient currently with DVT prophylaxis with aspirin 81 mg twice daily. Data and imaging reviewed: -Morning labs reviewed. Hemoglobin has trended over the past 24 hours and remained stable resulting at 8.4, 8.4, 8.4, and 7.8. BMP showing slight improvement of hyponatremia from 130 up to 132 this morning. -Vital signs reviewed. Blood pressures improved with blood pressure 110/70, heart rate 70, respiratory rate 17, temp 98.4F, SpO2 of 94% on room air. Hemoglobin is stable, blood pressure is now stable. Discussed with nursing that patient will need removal of Bird catheter and completion of voiding challenge. If patient is able to urinate independently with no post void residual she may then be cleared from medical perspective for discharge. However, if patient continues to have urinary retention and unable to urinate independently she will need reinsertion of Bird catheter and outpatient follow-up with urologist. Thank you for allowing us to participate in the care of this pleasant patient. Do not hesitate to contact us with questions. Someone can be reached from the [facility] group all hours of the day at [phone] or via perfect serve. Patient was seen independently by Nurse Pracitioner. This document was prepared using [employer] dictation software. Please allow for errors in quality worker, while rare they do occur. Objective - Vital Signs Vital signs: Vital Signs Temp 97.9 F 07/30/23 01:30 Pulse 74 07/30/23 01:30 Resp 18 07/30/23 01:30 BP 110/62 07/30/23 01:30 Pulse Ox 92 L 07/30/23 01:30 FiO2 Intake & Output 07/29/23 07/30/23 07/30/23 18:59 06:59 18:59 Intake Total 1600 Output Total 675 1630 Balance -675 -30 Intake: Intake, IV Titration 1600 Amount Sodium Chloride 0.9% 1, 1100 000 ml @ 100 mls/hr IV . Q10H [facility] Rx#:[id number] Sodium Chloride 0.9% 500 500 ml 500 ml @ 999 mls/hr IV .Q31M ONE Rx#:[id number] Output: Urine 675 1630 Straight 300 Other: Voiding Method Indwelling Catheter # Voids 1 - Labs CBC & Chem 7: 07/30/23 05:13 07/30/23 05:13 Labs: Abnormal Lab Results - Last 24 Hours (Table) 07/29/23 07/29/23 07/29/23 Range/Units 12:06 12:06 18:22 WBC (3.8-10.6) k/uL RBC 2.57 L 2.61 L (3.80-5.40) m/uL Hgb 8.4 L 8.4 L (11.4-16.0) gm/dL Hct 25.4 L 25.4 L (34.0-46.0) % Sodium 130 L (137-145) mmol/L Carbon Dioxide 20 L (22-30) mmol/L BUN 23 H (7-17) mg/dL Glucose 103 H (74-99) mg/dL Calcium 8.3 L (8.4-10.2) mg/dL Total Protein (6.3-8.2) g/dL Albumin (3.5-5.0) g/dL 07/30/23 07/30/23 Range/Units 05:13 05:13 WBC 3.2 L (3.8-10.6) k/uL RBC 2.40 L (3.80-5.40) m/uL Hgb 7.8 L (11.4-16.0) gm/dL Hct 23.2 L (34.0-46.0) % Sodium 132 L (137-145) mmol/L Carbon Dioxide (22-30) mmol/L BUN (7-17) mg/dL Glucose (74-99) mg/dL Calcium 8.1 L (8.4-10.2) mg/dL Total Protein 4.9 L (6.3-8.2) g/dL Albumin 2.7 L (3.5-5.0) g/dL
[2023-07-30] MEDS: SENNOSIDES-DOCUSATE SODIUM 1 EACH TAB PO SCH (20:06)
[2023-07-31] MEDS: SODIUM CHLORIDE 0.9% 1,000 ML IV SCH (01:23)
[2023-07-31] MEDS: LACTATED RINGERS 1,000 ML IV SCH (01:23)
[2023-07-31] MEDS: HYDROcodone/APAP 10-325MG 1 EACH TAB PO PRN ×2 (05:22→14:48)
--- NOTE | 2023-07-31 07:59 | P.DS ---
Providers Date of admission: 07/28/2023 Attending physician: Kevin Moser Consults: 07/28/23 13:10 Consult Physician Routine Consulting Provider: Ktaalina Pinto Consult Reason/Comments: post op medical management Do you want consulting provider notified?: Yes Primary care physician: [facility] Course: The patient is very pleasant relatively healthy 78-year-old female with pertinent medical history including rheumatoid arthritis and osteoporosis. She is admitted this past Monday and underwent an uncomplicated total hip replacement. She was transferred to the orthopedic floor in stable condition. Following surgery she had issues with hypotension and low urinary output. This resolved over the course of her hospitalization and was managed both by orthopedics and internal medicine. She received 2 doses of postoperative antibiotics. She was given aspirin for DVT prophylaxis. Her drain was pulled on postoperative day #1. Her surgical dressing was changed and reinforced on postoperative day #2. She was ultimately cleared by physical therapy for discharge home. Plan - Discharge Summary Discharge Rx Participant: Yes New Discharge Prescriptions: New HYDROcodone/APAP 5-325MG [Oxford 5-325] 1 - 2 tab PO Q6HR PRN #32 tab PRN Reason: Pain Diclofenac Sodium [Voltaren] 75 mg PO BID #60 tab Aspirin 81 mg PO BID #60 tab Docusate [Colace] 100 mg PO BID #30 capsule Omeprazole 40 mg PO DAILY #30 cap No Action NIFEdipine XL [Procardia XL] 30 mg PO DAILY Certolizumab Pegol [Cimzia] 400 mg INJ Q28D Zinc Gluconate [Zinc] 50 mg PO DAILY Ubidecarenone [Co Q-10] 100 mg PO BID Plecanatide [Trulance] 3 mg PO DAILY Magnesium 250 mg PO DAILY L.acidoph,Paracasei, B.lactis [Probiotic] 1 each PO DAILY Healthy Vision 1 tab PO DAILY Multivitamins, Thera [Multivitamin (formulary)] 1 tab PO DAILY Glucosa Elizabeth 2Kcl/Chondroitin Elizabeth [Glucosamine-Chondroitin Cap] 1 each PO DAILY Cyanocobalamin (Vitamin B-12) [Vitamin B-12] 1,000 mcg PO DAILY Discharge Medication List Certolizumab Pegol [Cimzia] 400 mg INJ Q28D 01/17/18 [History] NIFEdipine XL [Procardia XL] 30 mg PO DAILY 05/23/18 [History] Cyanocobalamin (Vitamin B-12) [Vitamin B-12] 1,000 mcg PO DAILY 07/19/23 [History] Glucosa Elizabeth 2Kcl/Chondroitin Elizabeth [Glucosamine-Chondroitin Cap] 1 each PO DAILY 07/19/23 [History] Healthy Vision 1 tab PO DAILY 07/19/23 [History] L.acidoph,Paracasei, B.lactis [Probiotic] 1 each PO DAILY 07/19/23 [History] Magnesium 250 mg PO DAILY 07/19/23 [History] Multivitamins, Thera [Multivitamin (formulary)] 1 tab PO DAILY 07/19/23 [History] Plecanatide [Trulance] 3 mg PO DAILY 07/19/23 [History] Ubidecarenone [Co Q-10] 100 mg PO BID 07/19/23 [History] Zinc Gluconate [Zinc] 50 mg PO DAILY 07/19/23 [History] Aspirin 81 mg PO BID #60 tab 07/28/23 [Rx] Diclofenac Sodium [Voltaren] 75 mg PO BID #60 tab 07/28/23 [Rx] Docusate [Colace] 100 mg PO BID #30 capsule 07/28/23 [Rx] HYDROcodone/APAP 5-325MG [Oxford 5-325] 1 - 2 tab PO Q6HR PRN #32 tab 07/28/23 [Rx] Omeprazole 40 mg PO DAILY #30 cap 07/28/23 [Rx] Follow up Appointment(s)/Referral(s): [facility] [NON-STAFF] - As Needed Kevin Moser MD [Medical Doctor] - 2 Weeks Activity/Diet/Wound Care/Special Instructions: 1. Weight-bear as tolerated on your operative extremity unless instructed otherwise. Use a walker or other assistive device to ambulate. 2. Leave surgical dressing in place. If your dressing becomes saturated with blood, there is drainage, or the dressing becomes loose please contact the office. 3. It is okay to shower with your surgical dressing, but do not submerge in miley er (no hot tubs, bath's, swimming etc.) 4. Make sure to take her blood clot prevention medication as prescribed (aspirin, Eliquis, Xarelto, and Plavix are commonly prescribed medications for blood clot prevention) 5. While taking Oxford or Percocet for pain make sure you're taking a stool softener (Colace) and drink lots of water. 6. Keep all follow-up appointments as scheduled. You will usually be seen in 1-2 weeks following surgery. 7. Please contact the office with any questions or concerns [phone] Discharge Disposition: HOME SELF-CARE
[2023-07-31 08:41] LABS: HCT 21.5 % (37.2-46.3); MCH 31.5 pg (27.0-32.0); MCHC 32.6 g/dL (32.0-37.0); MCV 96.8 FL (80.0-97.0); Mean Platelet Volume 9.7 FL (9.5-12.2); NRBC Per 100 WBC 0 X 10*3/uL (0.00-0.01); Platelet Count 159 X 10*3/uL (140-440); RBC 2.22 X 10*6/uL (4.10-5.20); RDW 13.7 % (11.5-14.5); WBC 4.14 X 10*3/uL (4.50-10.00)
[2023-07-31] MEDS: ASPIRIN 81 MG PO SCH (08:53)
[2023-07-31] MEDS: NIFEdipine XL 30 MG TAB.ER.24 PO SCH (08:53)
[2023-07-31] MEDS: CYANOCOBALAMIN 500 MCG TAB PO SCH (08:53)
[2023-07-31 08:54] LABS: ALT 12 U/L (8-44); AST 24 U/L (13-35); Albumin/Globulin Ratio 1.76 Ratio (1.60-3.17); Alkaline Phosphatase 57 U/L (41-126); Blood Urea Nitrogen 10.7 mg/dL (9.0-27.0); Calcium 8.6 mg/dL (8.7-10.3); Carbon Dioxide 25.2 mmol/L (21.6-31.8); Chloride 104 mmol/L (96-109); Globulin 1.7 g/dL (1.6-3.3); Glucose 100 mg/dL (70-110); Magnesium 1.9 mg/dL (1.5-2.4); Potassium 4.3 mmol/L (3.5-5.5); Sodium 135 mmol/L (135-145); Total Bilirubin 0.3 mg/dL (0.3-1.2); Total Protein 4.7 g/dL (6.2-8.2)
[2023-07-31] MEDS: MAGNESIUM HYDROXIDE 2,400 MG/30 ML CUP PO PRN (08:55)
--- NOTE | 2023-07-31 11:18 | P.PN ---
Subjective Progress Note Date: 07/31/23 Hospital course: Patient is a very pleasant 78-year-old female with a past medical history of Raynaud's disease, rheumatoid arthritis, breast cancer status post bilateral mastectomy and chemotherapy treatments, and severe osteoarthritis. Patient is admitted under orthopedic surgery team status post elective left direct anterior total hip arthroplasty. We have been consulted for medical management throughout patient's hospitalization. Physical exam: Patient seen and fully evaluated at bedside. Patient is to postoperative day 3 and appears to be doing well. Patient has been ambulatory up and down the halls without any difficulty, she denies having any complaints reporting controlled postoperative pain and has been working on her exercises that physical therapy on her. She is urinating on her own without any difficulties. Denies any complaints at this time. General: non toxic, no distress, appears at stated age Derm: warm, dry Head: atraumatic, normocephalic, symmetric Eyes: EOMI, no lid lag, anicteric sclera Mouth: no lip lesion, mucus membranes moist Cardiovascular: S1S2 reg, systolic murmur, positive posterior tibial pulse bilaterally, cap refill less than 2 seconds. Lungs: CTA bilateral, no rhonchi, no rales , no accessory muscle use Abdominal: soft, nontender to palpation, no guarding, no appreciable organomegaly Ext: no gross muscle atrophy, no edema, no contractures. Movement and sensation intact. Postoperative dressing in place right anterior hip/thigh and is clean, dry, and intact. Neuro: CN II-XI grossly intact, no focal neuro deficits Psych: Alert, oriented, appropriate affect Assessment and plan: Acute postoperative blood loss anemia, greater than expected. Stable. Hypotension, resolved Urinary retention, resolved Hyponatremia, resolved. -Hemoglobin is stable, blood pressure is now stable. Bird catheter was removed yesterday and patient successfully completed voiding challenge and has been urinating without any difficulties. -Morning labs reviewed. Hemoglobin decreasing from 7.8 down to 7.0, patient has no signs/symptoms of bleeding. Patient is asymptomatic to low hemoglobin. She denies having any headache, lightheadedness, dizziness, chest pain, palpitations, shortness of breath, or experiencing any numbness/tingling/weakness in her extremities. Vital signs are stable and patient has been ambulating up and down the halls without any difficulties with her . -Discussed with orthopedic surgeon, patient may be cleared for discharge home with repeat CBC to be completed in 2 days with results to be sent to PCP and orthopedic surgery for follow-up and management. Patient otherwise medically optimized for discharge with no further recommendations. Raynauds disease -Resume Procardia 30 mg daily Rhaumatoid arthritis -Patient is on once monthly biologic. Recommending continuation of current medication regimen and outpatient follow-up with rheumatology as scheduled. Status post left total hip arthroplasty -Management per primary admitting orthopedic surgery team including DVT prophylaxis, pain management, weightbearing, wound/dressing management, and P T/OT. -Patient currently with DVT prophylaxis with aspirin 81 mg twice daily. Data and imaging reviewed: Labs completed and reviewed. CBC showing normocytic anemia with hemoglobin of 7.0. BMP unremarkable. Magnesium 1.9. Liver profile unremarkable. Vital signs reviewed blood pressure 115/73, heart rate 70, respiratory rate 18, temp 98.5F, and SpO2 of 95% on room air. Hemoglobin is stable, blood pressure is now stable. Bird catheter was removed yesterday and patient successfully completed voiding challenge and has been urinating without any difficulties. .Morning labs reviewed. Hemoglobin decreasing from 7.8 down to 7.0, patient has no signs/symptoms of bleeding. Patient is asymptomatic to low hemoglobin. She denies having any headache, lightheadedness, dizziness, chest pain, palpitations, shortness of breath, or experiencing any numbness/ting ling/weakness in her extremities. Vital signs are stable and patient has been ambulating up and down the halls without any difficulties with her . Discussed with orthopedic surgeon, patient may be cleared for discharge home with repeat CBC to be completed in 2 days with results to be sent to PCP and orthopedic surgery for follow-up and management. Patient otherwise medically optimized for discharge with no further recommendations. Thank you for allowing us to participate in the care of this pleasant patient. Do not hesitate to contact us with questions. Someone can be reached from the [facility] hospitalist group all hours of the day at [phone] or via perfect serve. Patient was seen independently by Nurse Pracitioner. This document was prepared using [employer] dictation software. Please allow for errors in grape cutter, while rare they do occur. I reviewed the documentation as provided by the IZZY above, who is the original author of this note. I agree with the documented assessment and plan, with the following changes: none Objective - Vital Signs Vital signs: Vital Signs Temp 98.5 F 07/31/23 07:26 Pulse 70 07/31/23 07:26 Resp 18 07/31/23 07:26 BP 115/73 07/31/23 07:26 Pulse Ox 95 07/31/23 07:26 FiO2 Intake & Output 07/30/23 07/31/23 07/31/23 18:59 06:59 18:59 Intake Total 480 250 Output Total 550 975 Balance -70 -725 Intake: Intake, IV Titration 150 Amount Sodium Chloride 0.9% 1, 150 000 ml @ 100 mls/hr IV . Q10H [facility] Rx#:[id number] Oral 480 100 Output: Urine 550 975 Uretheral (Bird) 550 Other: Voiding Method Indwelling Catheter Toilet # Voids 1 - Labs CBC & Chem 7: 07/31/23 05:26 07/31/23 05:26
[2023-07-31 14:46] VITALS: BP 123/77; PULSE 111; RESP 20; TEMP 97.7
== END 2023-07-31 15:21 | disposition home or self-care (01) ==
LOC: OR 08:30 → 4SSUR 12:55 → OR 07-31 15:21
PROVIDERS: ATTEND Orthopaedic Surgery
DX: M16.12 Unilateral primary osteoarthritis, left hip (principal); M06.9 Rheumatoid arthritis, unspecified; I73.00 Raynaud's syndrome without gangrene; G89.18 Other acute postprocedural pain; Z90.13 Acquired absence of bilateral breasts and nipples; F41.9 Anxiety disorder, unspecified; Z80.7 Family history of other malignant neoplasms of lymphoid, hematopoietic and related tissues; Z85.3 Personal history of malignant neoplasm of breast; Z79.82 Long term (current) use of aspirin; Z79.899 Other long term (current) drug therapy; Z91.040 Latex allergy status; Z98.49 Cataract extraction status, unspecified eye; Z98.890 Other specified postprocedural states
CPT/HCPCS: 97116 ×2; 97163; 64447; 80053; 80048; 83735 ×2; 85027 ×2; 73501; 27130; C1776; C1713; J0171; J2250; J0330; J1100; J2710; J0690 ×2; J2405; J2001; J3010; J3490; J1885; J2704

== ENCOUNTER → 2023-08-02 | Outpatient (CLI) | payer MEDICARE ==
[2023-08-02 10:51] LABS: Basophils # (A) 0.03 X 10*3/uL (0.00-0.10); Basophils % (A) 0.8 %; Eosinophils # (A) 0.17 X 10*3/uL (0.04-0.35); Eosinophils % (A) 4.3 %; HCT 24.7 % (37.2-46.3); HGB 7.9 g/dL (12.0-15.0); Lymphocytes # (A) 0.76 X 10*3/uL (0.90-5.00); MCV 96.9 FL (80.0-97.0); Mean Platelet Volume 9.6 FL (9.5-12.2); Monocytes # (A) 0.42 X 10*3/uL (0.20-1.00); Monocytes % (A) 10.5 %; NRBC Per 100 WBC 0 X 10*3/uL (0.00-0.01); Neutrophils % (A) 65.1 %; Platelet Count 235 X 10*3/uL (140-440); RBC 2.55 X 10*6/uL (4.10-5.20); RDW 13.6 % (11.5-14.5); WBC 3.99 X 10*3/uL (4.50-10.00)
== END | disposition home or self-care (01) ==
LOC: LABWHC1 06:49
PROVIDERS: ATTEND Nurse Practitioner
DX: D64.9 Anemia, unspecified (principal)
CPT/HCPCS: 36415; 85025

== ENCOUNTER → 2023-08-09 | Outpatient (CLI) | payer MEDICARE ==
--- NOTE | 2023-08-09 17:59 | US ---
EXAMINATION TYPE: US venous doppler duplex LE BI DATE OF EXAM: 08/09/2023 1:38 PM COMPARISON: NONE CLINICAL INDICATION: Female, 78 years old with history of M79.662 M79.661; Pain and swelling in both legs. Left hip surgery 07/28/2023. SIDE PERFORMED: Bilateral TECHNIQUE: The lower extremity deep venous system is examined utilizing real time linear array sonog maribel with graded compression, doppler sonography and color-flow sonography. VESSELS IMAGED: Common Femoral Vein Deep Femoral Vein Greater Saphenous Vein * Femoral Vein Popliteal Vein Small Saphenous Vein * Proximal Calf Veins (* superficial vessels) Right Leg: Negative for DVT Left Leg: Negative for DVT. Multiple prominent lymph nodes seen in groin with largest measuring 3.0 x 0.6 x 1.3cm. IMPRESSION: 1. Bilateral lower extremity ultrasound negative for deep venous thrombosis. 2. Multiple left inguinal adenopathy
== END | disposition home or self-care (01) ==
LOC: RADUSWWP 12:38
PROVIDERS: ATTEND Orthopaedic Surgery
DX: R59.0 Localized enlarged lymph nodes (principal); M06.852 Other specified rheumatoid arthritis, left hip; Z47.1 Aftercare following joint replacement surgery; M79.672 Pain in left foot; R60.9 Edema, unspecified; M79.662 Pain in left lower leg; M79.661 Pain in right lower leg; Z96.642 Presence of left artificial hip joint
CPT/HCPCS: 93970

== ENCOUNTER → 2023-08-31 | Outpatient (CLI) | payer MEDICARE ==
--- NOTE | 2023-08-31 17:23 | CT ---
EXAMINATION TYPE: CT femur LT wo con, CT lower extremity LT wo con DATE OF EXAM: 08/31/2023 COMPARISON: Left hip x-ray July 28, 2023. HISTORY: Post op hip infection CT DLP: 2242.7 mGycm Automated exposure control for dose reduction was used. FINDINGS: Metallic hardware from total left hip arthroplasty redemonstrated with stable and satisfactory alignm ent. Adjacent streak artifact makes evaluation suboptimal. Lucency consistent with subchondral cystic change throughout the acetabulum superiorly is identified. There is ill-defined fluid and foci of ai r anterior to the left hip prosthesis extending throughout the anterior muscles, more than would be s uspected one month after surgery. No thick walled focal fluid collection or abscess clearly seen. There is moderate diffuse subcutaneous edema along the entire left lower extremity. No suspicious bon y destruction or osseous abnormality in the tibia or fibula. Muscle bulk is preserved in the left leg . IMPRESSION: Ill-defined fluid with numerous foci of air anterior to the femoral component of the left hip prosthesis is more than expected one month after surgery and infection at this level needs to be considered. Moderate diffuse subcutaneous edema throughout the left lower extremity is noted. No wel l-formed fluid collection or drainable abscess is seen.
== END | disposition home or self-care (01) ==
LOC: RADCTMAIN 12:14
PROVIDERS: ATTEND Orthopaedic Surgery
DX: Z47.1 Aftercare following joint replacement surgery (principal); M06.852 Other specified rheumatoid arthritis, left hip; R60.0 Localized edema; Z96.642 Presence of left artificial hip joint

== ENCOUNTER 2023-09-04 10:53 | Inpatient (IN) | payer MEDICARE ==
[2023-09-04] MEDS ORDERED: SODIUM CHLORIDE 0.9% 1,000 ML IV STA ×2 (11:30)
[2023-09-04] MEDS ORDERED: ONDANSETRON 4 MG/2 ML VIAL IVP PRN (12:15)
[2023-09-04] MEDS ORDERED: NALOXONE 0.4 MG/ML 1 ML VIAL IV PRN (12:15)
[2023-09-04] MEDS ORDERED: ACETAMINOPHEN TAB 325 MG TAB PO PRN (12:15)
--- NOTE | 2023-09-04 12:21 | ED ---
General Adult HPI - General Chief complaint: Skin/Abscess/Foreign Body Stated complaint: infection Time Seen by Provider: 09/04/23 11:30 Source: patient, RN/MD, RN notes reviewed, old records reviewed Mode of arrival: ambulatory Limitations: no limitations - History of Present Illness Initial comments: Patient is a 78-year-old female presents emergency department for admission. I was notified by Dr. Moser prior to patient's arrival. Patient had her left hip replaced on July 28 she is been dealing with infectious symptoms at the site since. Pulses been coming from the site. She is being admitted under Dr. Moser for possible washout as well as evaluation by infectious disease. He requested I place the patient on Ancef and consult infectious disease as well as medicine. Patient corroborates the story. States it has been failed outpatient management as she has been on oral antibiotic without improvement in symptoms. Denies any fevers. Denies nausea or vomiting. Endorses pain. Denies urinary complaints. States it is actively draining. Has no acute complaints at this time. Presents for further evaluation. - Related Data Home Medications Medication Instructions Recorded Confirmed Certolizumab Pegol [Cimzia] 400 mg INJ Q28D 01/17/18 09/04/23 NIFEdipine XL [Procardia XL] 30 mg PO DAILY 01/17/18 09/04/23 Cyanocobalamin (Vitamin B-12) 1,000 mcg PO DAILY 07/19/23 09/04/23 [Vitamin B-12] Glucosa Elizabeth 2Kcl/Chondroitin Elizabeth 1 each PO DAILY 07/19/23 09/04/23 [Glucosamine-Chondroitin Cap] Healthy Vision 1 tab PO DAILY 07/19/23 09/04/23 L.acidoph,Paracasei, B.lactis 1 cap PO DAILY 07/19/23 09/04/23 [Probiotic] Magnesium 250 mg PO DAILY 07/19/23 09/04/23 Multivitamins, Thera [Multivitamin 1 tab PO DAILY 07/19/23 09/04/23 (formulary)] Ubidecarenone [Co Q-10] 100 mg PO BID 07/19/23 09/04/23 Zinc Gluconate [Zinc] 50 mg PO DAILY 07/19/23 09/04/23 Cephalexin [Keflex] 500 mg PO Q6HR 09/04/23 09/04/23 Previous Rx's Medication Instructions Recorded HYDROcodone/APAP 5-325MG [[place] 1 - 2 tab PO Q6HR PRN #32 tab 07/28/23 5-325] Allergies Allergy/AdvReac Type Severity Reaction Status Date / Time Latex, Natural Rubber Allergy Rash/Hives Verified 09/04/23 12:20 Review of Systems ROS Statement: Those systems with pertinent positive or pertinent negative responses have been documented in the HPI. Review of Systems: CONST: Denies fever EYES: Denies blurry vision ENT: Denies nasal congestion C/V: Denies Chest pain RESP: Denies shortness of breath GI: Denies abdominal pain : Denies dysuria SKIN: Endorses left hip infection, drainage MSK: Endorses left hip pain NEURO: Denies headache ROS Other: All systems not noted in ROS Statement are negative. Past Medical History Past Medical History: Cancer, Rheumatoid Arthritis (RA) Additional Past Medical History / Comment(s): Right breast cancer in 1995, left breast cancer 2012. Raynauds syndrome and history of osteopenia (s/p 2 yrs use of bisphosphonates in the past). last chemo 1995. 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 History of Any Multi-Drug Resistant Organisms: None Reported Past Surgical History: Breast Surgery, Orthopedic Surgery Additional Past Surgical History / Comment(s): left hip replacement Past Anesthesia/Blood Transfusion Reactions: No Reported Reaction Past Psychological History: No Psychological Hx Reported Smoking Status: Never smoker Past Alcohol Use History: None Reported Past Drug Use History: None Reported - Past Family History Mother Family Medical History: Cancer Additional Family Medical History / Comment(s): Unknown type of cancer. Sister(s) Family Medical History: Cancer Additional Family Medical History / Comment(s): Lymphoma. General Exam - General Exam Comments Initial Comments: General: Appears in mild distress secondary to pain. HEAD: Normal with no signs of head trauma. EYES: PERRLA, EOMI, conjunctiva normal, no discharge. ENT: Hearing grossly intact, normal oropharynx. RESPIRATORY: Clear breath sounds bilaterally. No wheezes, rales, or rhonchi. C/V: Regular rate and rhythm. S1 and S2 auscultated, no edema, peripheral pulses 2+ and intact throughout ABD: Abd is soft, nontender, nondistended EXT: Reduced range of motion of the left hip secondary to pain. SKIN: Surgical incision over left hip appears indurated with purulent material draining. Tender to palpation. Warm. Appears infected. NEURO: Alert and oriented 4. Limitations: no limitations Course Vital Signs 09/04/23 09/04/23 11:16 14:02 Temperature 99 F Pulse Rate 97 73 Respiratory 18 18 Rate Blood Pressure 102/67 104/69 O2 Sat by Pulse 93 L 97 Oximetry Medical Decision Making - Medical Decision Making Was pt. sent in by a medical professional or institution (, PA, RELIEF MASTER, urgent care, hospital, or intermediate...) When possible be specific @ -Sent by her orthopedic surgeon, Dr. Moser for admission under his service. Did you speak to anyone other than the patient for history (EMS, parent, family, police, friend...)? What history was obtained from this source @ -I spoke with Dr. Moser who provided patient's recent past medical history including surgery in early July and failed outpatient treatment of left hip prosthetic infection. Did you review nursing and triage notes (agree or disagree)? Why? @ -I reviewed and agree with nursing and triage notes Were old charts reviewed (outside hosp., previous admission, EMS record, old EKG, old radiological studies, urgent care reports/EKG's, intermediate records)? Report findings @ -Old charts reviewed Differential Diagnosis (chest pain, altered mental status, abdominal pain women, abdominal pain men, vaginal bleeding, weakness, fever, dyspnea, syncope, headache, dizziness, GI bleed, back pain, seizure, CVA, palpatations, mental health, musculoskeletal)? @ -Infected artificial hip, dehydration, electrolyte abnormality. This list is not all inclusive. EKG interpreted by me (3pts min.). @ -None done X-rays interpreted by me (1pt min.). @ -None done CT interpreted by me (1pt min.). @ -None done U/S interpreted by me (1pt. min.). @ -None done What testing was considered but not performed or refused? (CT, X-rays, U/S, labs)? Why? @ -None What meds were considered but not given or refused? Why? @ -None Did you discuss the management of the patient with other professionals (professionals i.e. , CAT, RELIEF MASTER, lab, RT, psych nurse, social service technician, bolt sawyer, teacher, public service officer, case making machine operator)? Give summary @ -Discussed management with her orthopedic surgeon Dr. Moser who requested the patient admitted under his service, patient be started on Ancef which was done, as well as infectious disease and medicine consults. I spoke with Dr. Boogie allen who agreed to consult. Was smoking cessation discussed for >3mins.? @ -No Was critical care preformed (if so, how long)? @ -No Were there social determinants of health that impacted care today? How? (Homelessness, low income, unemployed, alcoholism, drug addiction, transportation, low edu. Level, literacy, decrease access to med. care, penitentiary, rehab)? @ -No Was there de-escalation of care discussed even if they declined (Discuss DNR or withdrawal of care, Hospice)? DNR status @ -No What co-morbidities impacted this encounter? (DM, HTN, Smoking, COPD, CAD, Cancer, CVA, ARF, Chemo, Hep., AIDS, mental health diagnosis, sleep apnea, morbid obesity)? @ -None Was patient admitted / discharged? Hospital course, mention meds given and route, prescriptions, significant lab abnormalities, going to OR and other pertinent info. @ -Patient's presentation physical exam, presents for admission for left hip prosthetic infection. Patiently be placed on Ancef, IV fluids. Nothing by mouth after midnight. Basic labs ordered. Restarted home pain meds. Consults to both medicine as well as infectious disease placed. Patient be admitted under Dr. Moser at his request. Patient was in agreement this plan. Patient's laboratory studies are remarkable for a normal white blood cell count. Patient is a hemolyzed potassium which will be repeated. Remainder the labs unremarkable. Patient admitted in stable condition. Undiagnosed new problem with uncertain prognosis? @ -No Drug Therapy requiring intensive monitoring for toxicity (Heparin, Nitro, Insulin, Cardizem)? @ -No Were any procedures done? @ -No Diagnosis/symptom? @ -Left hip prosthetic joint infection Acute, or Chronic, or Acute on Chronic? @ -Acute Uncomplicated (without systemic symptoms) or Complicated (systemic symptoms)? @ -Complicated Side effects of treatment? @ -No Exacerbation, Progression, or Severe Exacerbation? @ -No Poses a threat to life or bodily function? How? (Chest pain, USA, MA, pneumonia, PE, COPD, DKA, ARF, appy, cholecystitis, CVA, Diverticulitis, Homicidal, Suicidal, threat to staff... and all critical care pts) @ -Yes - Lab Data Result diagrams: 09/04/23 12:27 09/04/23 12:27 Disposition Clinical Impression: Left hip prosthetic joint infection Disposition: ADMITTED IP TO THIS HOSP Condition: Stable Time of Disposition: 12:20
[2023-09-04] MEDS ORDERED: NON FORMULARY DRUG (Certolizumab Pegol [Cimzia] 400 MG/2 ML Syringekit) INJ SCH (12:45)
[2023-09-04] MEDS ORDERED: HEPARIN SODIUM,PORCINE 5,000 UNIT/ML 1 ML VIAL SQ SCH (13:00)
[2023-09-04 13:41] LABS: Basophils % (A) 1 %; Eosinophils # (A) 0.2 k/uL (0-0.7); Eosinophils % (A) 4 %; HCT 33.8 % (34.0-46.0); HGB 10.7 gm/dL (11.4-16.0); Hypochromasia Slight; Lymphocytes # (A) 0.8 k/uL (1.0-4.8); Lymphocytes % (A) 21 %; MCH 29.5 pg (25.0-35.0); MCHC 31.7 g/dL (31.0-37.0); Mean Platelet Volume 7.9; Monocytes # (A) 0.4 k/uL (0-1.0); Monocytes % (A) 9 %; Neutrophils # (A) 2.5 k/uL (1.3-7.7); Neutrophils % (A) 62 %; RBC 3.63 m/uL (3.80-5.40); RDW 14.5 % (11.5-15.5)
[2023-09-04 13:52] LABS: Platelet Count 393 k/uL (150-450)
--- NOTE | 2023-09-04 13:55 | US ---
EXAMINATION TYPE: US venous doppler duplex LE BI DATE OF EXAM: 09/04/2023 1:34 PM COMPARISON: NONE CLINICAL INDICATION: Female, 78 years old with history of DVT; Left hip surgery 07/28/23. Pain and kel ma bilateral legs SIDE PERFORMED: bilateral TECHNIQUE: The lower extremity deep venous system is examined utilizing real time linear array sonog maribel with graded compression, doppler sonography and color-flow sonography. VESSELS IMAGED: Common Femoral Vein Deep Femoral Vein Greater Saphenous Vein * Femoral Vein Popliteal Vein Small Saphenous Vein * Proximal Calf Veins (* superficial vessels) Right Leg: No evidence of DVT. Complex anechoic area right popliteal fossa = 4.9 x 1.6 x 3.1cm, Bake r's cyst Left Leg: No evidence of DVT IMPRESSION: 1. No evidence for DVT within the bilateral lower extremities imaged from the groin to the upper calv es. 2. Small to moderate-sized 4.9 cm Rodgers cyst on the right.
[2023-09-04 13:58] LABS: ALT 23 U/L (4-34); AST 41 U/L (14-36); African American GFR (CKD) >90 (>60 ml/min/1.73 sqM); Albumin 3.3 g/dL (3.5-5.0); Alkaline Phosphatase 111 U/L (38-126); Anion Gap 13 mmol/L; Blood Urea Nitrogen 20 mg/dL (7-17); Calcium 9.1 mg/dL (8.4-10.2); Carbon Dioxide 23 mmol/L (22-30); Chloride 97 mmol/L (98-107); Glucose 100 mg/dL (74-99); Non-African American GFR(CKD) >90 (>60 ml/min/1.73 sqM); Sodium 133 mmol/L (137-145); Total Bilirubin 0.5 mg/dL (0.2-1.3); Total Protein 6.6 g/dL (6.3-8.2)
[2023-09-04] MEDS: NIFEdipine XL 30 MG TAB.ER.24 PO SCH (14:10)
[2023-09-04] MEDS: ZINC SULFATE 220 MG CAP PO SCH (14:10)
[2023-09-04 14:35] LABS: Potassium 5.4 mmol/L (3.5-5.1)
[2023-09-04] MEDS: SENNOSIDES 8.6 MG TAB PO SCH ×2 (15:21→20:31)
[2023-09-04] MEDS: MORPHINE SULFATE 4 MG/ML SYRINGE IVP PRN ×2 (15:22→22:19)
[2023-09-04] MEDS: HYDROcodone/APAP 5-325MG 1 EACH TAB PO PRN (18:13)
[2023-09-04] MEDS ORDERED: NON FORMULARY DRUG (Ubidecarenone [Co Q-10] 300 MG Capsule) PO SCH (21:00)
--- NOTE | 2023-09-04 22:46 | CONS ---
CONSULTATION REASON FOR CONSULTATION: Advice regarding rheumatoid arthritis and other medical issues, requested by Orthopedics. HISTORY OF PRESENT ILLNESS: This is a 78-year-old woman with a past medical history of breast cancer, rheumatoid arthritis, and multiple other medical issues, underwent left direct anterior total hip joint arthroplasty on 07/28/2023. The patient had some discharge from the wound and was managed outpatient, but currently the patient has some swelling, pain, redness and watery discharge. The patient was sent to [facility], admitted under Dr. Moser at this time. There is no history of any fever, rigors, or chills. PAST MEDICAL HISTORY: Rheumatoid arthritis, breast cancer, multiple medical issues, rest of the history and chart is reviewed. HOME MEDICATIONS: Reviewed include zinc, dose and rest of medications reviewed. ALLERGIES: Latex. FAMILY HISTORY: History of cancer. SOCIAL HISTORY: No history of smoking or alcohol intake. REVIEW OF SYSTEMS: A 14-point review is negative except as mentioned. PHYSICAL EXAMINATION: VITAL SIGNS: Pulse is 97, blood pressure 102/67, and respirations 18 . HEENT: Conjunctivae normal. NECK: No jugular venous distention. CARDIOVASCULAR: S1 and S2 muffled. RESPIRATORY: Breath sounds diminished at the bases. ABDOMEN: Soft and nontender. LEGS: Significant swelling of the left leg and erythema on the left upper thigh. The incision is tender, some seropurulent discharge also present. NERVOUS SYSTEM: No focal deficits. SKIN: As mentioned. JOINTS: As mentioned earlier. LYMPHATICS: No lymph node palpable. LABORATORY DATA: Not available. ASSESSMENT: 1. Status post left direct hip arthroplasty and wound infection with failure of outpatient treatment. 2. Rheumatoid arthritis. 3. History of right breast cancer. 4. History of Raynaud phenomena. 5. History of DJD. RECOMMENDATIONS: This 78-year-old woman presented with multiple medical issues. At this time, we will monitor the patient closely. I would recommend broad-spectrum IV antibiotics, infectious disease evaluation cultures. Resume the home medications. DVT prophylaxis. Ultrasound of the legs to rule out the possibility of any DVTs. Otherwise, we will follow the patient closely with you. Thank you for letting us participate in this patient. We will closely follow. MMODL / IJN: [id number] /
--- NOTE | 2023-09-04 22:56 | P.CONS ---
History of Present Illness - Reason for Consult Consult date: 09/04/23 Infected left hip Requesting physician: Delfin Steve - Chief Complaint Left hip pain and drainage x days - History of Present Illness Patient is a 78-year-old female with a past medical history significant for rheumatoid arthritis history of right breast cancer this patient who is status post left hip replacement on 07/28/2023 patient was subsequently discharged home patient apparently mentioned that she did have some swelling at the left hip site after surgery and was told this was normal for surgical procedure, patient mention he did have a problem with swelling to the left hip area for the patient has been evaluated in the outpatient setting by heart orthopedics stitches were removed and the patient did have some fluid aspirated from the area that subsequently came back positive for MSSA patient was evaluated the office today by her orthopedic surgeon and the patient has been sent to the ER for admission for IV antibiotic therapy and planning for washout of the left hip, patient has been complaining of pain to the left hip area to be sharp moderate to severe intensity without radiation with associated swelling redness and did have some drainage patient did have some chills but denies high- grade fever on presentation to the hospital patient did have a low-grade fever of 99 F, the patient was not tachycardic hypotensive or hypoxic white count of 4.0 creatinine 0.46 patient was started on cefazolin infectious disease was consulted for further management of antibiotic therapy Review of Systems Positive point and negatives has been mentioned in the HPI, complete review of systems was performed and all other systems are negative Past Medical History Past Medical History: Cancer, Rheumatoid Arthritis (RA) Additional Past Medical History / Comment(s): Right breast cancer in 1995, left breast cancer 2012. Raynauds syndrome and history of osteopenia (s/p 2 yrs use of bisphosphonates in the past). last chemo 1995. 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 History of Any Multi-Drug Resistant Organisms: None Reported Past Surgical History: Breast Surgery, Orthopedic Surgery Additional Past Surgical History / Comment(s): left hip replacement Past Anesthesia/Blood Transfusion Reactions: No Reported Reaction Past Psychological History: No Psychological Hx Reported Smoking Status: Never smoker Past Alcohol Use History: None Reported Past Drug Use History: None Reported - Past Family History Mother Family Medical History: Cancer Additional Family Medical History / Comment(s): Unknown type of cancer. Sister(s) Family Medical History: Cancer Additional Family Medical History / Comment(s): Lymphoma. Medications and Allergies Home Medications Medication Instructions Recorded Confirmed Type Certolizumab Pegol [Cimzia] 400 mg INJ Q28D 01/17/18 09/04/23 History NIFEdipine XL [Procardia XL] 30 mg PO DAILY 01/17/18 09/04/23 History Cyanocobalamin (Vitamin B-12) 1,000 mcg PO DAILY 07/19/23 09/04/23 History [Vitamin B-12] Glucosa Elizabeth 2Kcl/Chondroitin Elizabeth 1 each PO DAILY 07/19/23 09/04/23 History [Glucosamine-Chondroitin Cap] Healthy Vision 1 tab PO DAILY 07/19/23 09/04/23 History L.acidoph,Paracasei, B.lactis 1 cap PO DAILY 07/19/23 09/04/23 History [Probiotic] Magnesium 250 mg PO DAILY 07/19/23 09/04/23 History Multivitamins, Thera [Multivitamin 1 tab PO DAILY 07/19/23 09/04/23 History (formulary)] Ubidecarenone [Co Q-10] 100 mg PO BID 07/19/23 09/04/23 History Zinc Gluconate [Zinc] 50 mg PO DAILY 07/19/23 09/04/23 History Aspirin [Adult Low Dose Aspirin EC] 81 mg PO BID #1 tab 09/10/23 Rx Docusate [Colace] 100 mg PO BID #60 capsule 09/10/23 Rx Omeprazole 40 mg PO DAILY #30 tab 09/10/23 Rx HYDROcodone/APAP 7.5-325MG [[place] 1 - 2 tab PO Q6HR PRN #32 tab 09/11/23 Rx 7.5-325] ceFAZolin [Kefzol] 2 gm IVP Q8HR #120 each 09/12/23 Rx Allergies Allergy/AdvReac Type Severity Reaction Status Date / Time Latex, Natural Rubber Allergy Rash/Hives Verified 09/05/23 14:34 Physical Exam Vitals: Vital Signs Temp Pulse Resp BP Pulse Ox 09/04/23 11:16 99 F 97 18 102/67 93 L Intake and Output 09/03/23 09/04/23 09/04/23 22:59 06:59 14:59 Other: Weight 58.967 kg GENERAL DESCRIPTION: Elderly female lying in bed, no distress. No tachypnea or accessory muscle of respiration use. HEENT: Shows Pallor , no scleral icterus. Oral mucous membrane is dry. No pharyngeal erythema or thrush NECK: Trachea central, no thyromegaly. LUNGS: Unlabored breathing. Clear to auscultation anteriorly. No wheeze or crackle. HEART: S1, S2, regular rate and rhythm. No loud murmur ABDOMEN: Soft, no tenderness , guarding or rigidity, no organomegaly EXTREMITIES: Left hip with a nonhealing wound with some surrounding swelling redness and drainage SKIN: No rash, no masses palpable. NEUROLOGICAL: The patient is awake, alert, oriented x3, mood and affect normal. Results CBC & Chem 7: 09/12/23 06:42 09/12/23 06:42 Assessment and Plan (1) Left hip prosthetic joint infection Current Visit: Yes Status: Acute Code(s): T84.52XA - INFECT/INFLM REACTION DUE TO INTERNAL LEFT HIP PROSTH, INIT SNOMED Code(s): 90596230814369478 (2) MSSA (methicillin susceptible Staphylococcus aureus) infection Current Visit: Yes Status: Acute Priority: High Code(s): A49.01 - METH ICILLIN SUSCEP STAPH INFECTION, UNSP SITE SNOMED Code(s): 126235474 Plan: 1patient presented to hospital with a left hip pain swelling redness did have some drainage with recent aspirate in the outpatient setting coming back positive with MSSA very suspicious for underlying left hip septic arthritis 2blood cultures will obtain and will check inflammatory markers 3await left hip washout procedure at scheduled for tomorrow to see the depth of this infection 4we will adjust the cefazolin to 2 g every 8 hours Multiple question concern were answered in layman term We will follow on clinical condition and cultures to further adjust medication if needed Thank you for this consultation we will follow the patient along with you Dictation was produced using Chatterous dictation software. please excuse any grammatical, word or spelling errors. Time with Patient: Greater than 30
[2023-09-05] MEDS: HEPARIN SODIUM,PORCINE 5,000 UNIT/ML 1 ML VIAL SQ SCH ×5 (03:42→23:44)
[2023-09-05 06:19] LABS: INR 0.9 (<1.2); Prothrombin Time 10.2 sec (10.0-12.5)
[2023-09-05] MEDS: PANTOPRAZOLE 40 MG TABLET PO SCH (07:41)
[2023-09-05] MEDS: MORPHINE SULFATE 4 MG/ML SYRINGE IVP PRN ×2 (08:12→22:13)
[2023-09-05] MEDS ORDERED: NON FORMULARY DRUG (Glucosa Su 2kcl/Chondroitin Su [Glucosamine-Chondroitin Cap] 1 EACH Ca PO SCH (09:00)
[2023-09-05 09:19] LABS: Basophils # (A) 0.04 X 10*3/uL (0.00-0.10); Eosinophils # (A) 0.31 X 10*3/uL (0.04-0.35); Eosinophils % (A) 7.4 %; HCT 28.8 % (37.2-46.3); HGB 9.1 g/dL (12.0-15.0); Lymphocytes # (A) 0.91 X 10*3/uL (0.90-5.00); Lymphocytes % (A) 21.6 %; MCH 28.7 pg (27.0-32.0); MCHC 31.6 g/dL (32.0-37.0); MCV 90.9 FL (80.0-97.0); Mean Platelet Volume 9.1 FL (9.5-12.2); Monocytes # (A) 0.62 X 10*3/uL (0.20-1.00); Monocytes % (A) 14.7 %; NRBC Per 100 WBC 0 X 10*3/uL (0.00-0.01); Neutrophils # (A) 2.29 X 10*3/uL (1.80-7.70); Neutrophils % (A) 54.3 %; Platelet Count 342 X 10*3/uL (140-440); RBC 3.17 X 10*6/uL (4.10-5.20); RDW 14.9 % (11.5-14.5); WBC 4.21 X 10*3/uL (4.50-10.00)
[2023-09-05 09:49] LABS: Blood Urea Nitrogen 11.7 mg/dL (9.0-27.0); Calcium 8.3 mg/dL (8.7-10.3); Carbon Dioxide 22.8 mmol/L (21.6-31.8); Chloride 102 mmol/L (96-109); Glucose 110 mg/dL (70-110); Potassium 4.1 mmol/L (3.5-5.5); Sodium 134 mmol/L (135-145)
[2023-09-05] MEDS: CYANOCOBALAMIN 500 MCG TAB PO SCH (10:05)
[2023-09-05] MEDS: MAGNESIUM OXIDE 400 MG TAB PO SCH (10:05)
[2023-09-05] MEDS: LACTOBACILLUS ACIDOPHILUS/PECT 1 EACH CAPSULE PO SCH (10:05)
[2023-09-05] MEDS: VIT A,C & E-LUTEIN-MINERALS 1 EACH TAB PO SCH (10:06)
[2023-09-05] MEDS: NIFEdipine XL 30 MG TAB.ER.24 PO SCH (10:06)
[2023-09-05] MEDS: SENNOSIDES 8.6 MG TAB PO SCH ×2 (10:06→19:44)
[2023-09-05] MEDS: MULTIVITAMINS, THERA 1 EACH TAB PO SCH (10:06)
[2023-09-05] MEDS: ZINC SULFATE 220 MG CAP PO SCH (10:07)
[2023-09-05 10:19] LABS: Erythrocyte Sedimentation Rate 41 mm/Hr (0-30)
--- NOTE | 2023-09-05 10:43 | P.PN ---
Progress Note - Text Progress Note Date: 09/05/23 Patient is medically stable for surgical intervention of the left hip with orthopedics today.
--- NOTE | 2023-09-05 10:56 | P.HPOR ---
History of Present Illness H&P Date: 09/05/23 The patient is a very pleasant 78-year-old female with a history significant for rheumatoid arthritis and breast cancer who underwent a left direct anterior total hip replacement on 07/28/2023. She initially did well but had some issues with diffuse leg swelling. She had an ultrasound which showed no evidence of DVT but enlarged inguinal lymph nodes. Her incision was well healed initially. She improved clinically but several days ago had an increase in hip pain and swelling which she attributed to putting away [place] decorations. She was seen in the office and found to have a large subcutaneous abscess and erythema around her incision. It was aspirated and 60 mL's of purulent fluid was aspirated and sent for culture. A computed tomography scan was also obtained to assess the extent of the abscess. We discussed admitting the patient to the hospital last but the patient was adamant that she wanted to attend her husbands surprise 79th birthday green party this past Monday. She was seen in the office on Monday and her incision had opened and was draining. She was sent to the hospital. Past Medical History Past Medical History: Cancer, Rheumatoid Arthritis (RA) Additional Past Medical History / Comment(s): Right breast cancer in 1995, left breast cancer 2012. Raynauds syndrome and history of osteopenia (s/p 2 yrs use of bisphosphonates in the past). last chemo 1995. 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 History of Any Multi-Drug Resistant Organisms: None Reported Past Surgical History: Breast Surgery, Orthopedic Surgery Additional Past Surgical History / Comment(s): left hip replacement Past Anesthesia/Blood Transfusion Reactions: No Reported Reaction Past Psychological History: No Psychological Hx Reported Smoking Status: Never smoker Past Alcohol Use History: None Reported Additional Past Alcohol Use History / Comment(s): quit 1997, less than 1ppd, started age 19 Past Drug Use History: None Reported - Past Family History Mother Family Medical History: Cancer Additional Family Medical History / Comment(s): Unknown type of cancer. Sister(s) Family Medical History: Cancer Additional Family Medical History / Comment(s): Lymphoma. Medications and Allergies Home Medications Medication Instructions Recorded Confirmed Type Certolizumab Pegol [Cimzia] 400 mg INJ Q28D 01/17/18 09/04/23 History NIFEdipine XL [Procardia XL] 30 mg PO DAILY 01/17/18 09/04/23 History Cyanocobalamin (Vitamin B-12) 1,000 mcg PO DAILY 07/19/23 09/04/23 History [Vitamin B-12] Glucosa Elizabeth 2Kcl/Chondroitin Elizabeth 1 each PO DAILY 07/19/23 09/04/23 History [Glucosamine-Chondroitin Cap] Healthy Vision 1 tab PO DAILY 07/19/23 09/04/23 History L.acidoph,Paracasei, B.lactis 1 cap PO DAILY 07/19/23 09/04/23 History [Probiotic] Magnesium 250 mg PO DAILY 07/19/23 09/04/23 History Multivitamins, Thera [Multivitamin 1 tab PO DAILY 07/19/23 09/04/23 History (formulary)] Ubidecarenone [Co Q-10] 100 mg PO BID 07/19/23 09/04/23 History Zinc Gluconate [Zinc] 50 mg PO DAILY 07/19/23 09/04/23 History HYDROcodone/APAP 5-325MG [[place] 1 - 2 tab PO Q6HR PRN #32 tab 07/28/23 09/04/23 Rx 5-325] Cephalexin [Keflex] 500 mg PO Q6HR 09/04/23 09/04/23 History Allergies Allergy/AdvReac Type Severity Reaction Status Date / Time Latex, Natural Rubber Allergy Rash/Hives Verified 09/04/23 12:20 Physical Examination The patient is resting comfortably in bed. She is alert and able to answer questions. She is nonobese. She demonstrates nonlabored breathing with symmetric chest expansion. A focused exam of the left lower extremity was conducted. On inspection there is diffuse erythema and swelling over the anterior aspect of the left hip. There is a moderate amount of purulent drainage in the dressing. Her thigh and calf are diffusely swollen. She is able to actively plantarflex and dorsiflex her ankle and her toes. Results X-rays from the office show a well fixed hybrid total hip replacement with a cementless cup, cemented femoral stem and dual mobility articulation. Her cultures from outside facility are showing MSSA. - Labs Labs: Abnormal Lab Results - Last 24 Hours (Table) 09/04/23 09/04/23 09/05/23 Range/Units 12:27 12:27 05:32 WBC 4.21 L (4.50-10.00) X 10*3/uL RBC 3.63 L 3.17 L (3.80-5.40) m/uL Hgb 10.7 L 9.1 L (11.4-16.0) gm/dL Hct 33.8 L 28.8 L (34.0-46.0) % MCHC 31.6 L (32.0-37.0) g/dL RDW 14.9 H (11.5-14.5) % MPV 9.1 L (9.5-12.2) FL Lymphocytes # 0.8 L (1.0-4.8) k/uL ESR 41 H (0-30) mm/Hr Sodium 133 L (137-145) mmol/L Potassium 5.4 H (3.5-5.1) mmol/L Chloride 97 L (98-107) mmol/L BUN 20 H (7-17) mg/dL Creatinine 0.46 L (0.52-1.04) mg/dL BUN/Creatinine Ratio (12.00-20.00) Ratio Glucose 100 H (74-99) mg/dL Calcium (8.7-10.3) mg/dL AST 41 H (14-36) U/L C-Reactive Protein (0.00-0.80) mg/dL Albumin 3.3 L (3.5-5.0) g/dL 09/05/23 Range/Units 05:32 WBC (4.50-10.00) X 10*3/uL RBC (3.80-5.40) m/uL Hgb (11.4-16.0) gm/dL Hct (34.0-46.0) % MCHC (32.0-37.0) g/dL RDW (11.5-14.5) % MPV (9.5-12.2) FL Lymphocytes # (1.0-4.8) k/uL ESR (0-30) mm/Hr Sodium 134 L (137-145) mmol/L Potassium (3.5-5.1) mmol/L Chloride (98-107) mmol/L BUN (7-17) mg/dL Creatinine 0.5 L (0.52-1.04) mg/dL BUN/Creatinine Ratio 23.40 H (12.00-20.00) Ratio Glucose (74-99) mg/dL Calcium 8.3 L (8.7-10.3) mg/dL AST (14-36) U/L C-Reactive Protein 6.20 H (0.00-0.80) mg/dL Albumin (3.5-5.0) g/dL Microbiology - Last 24 Hours (Table) 09/04/23 14:23 Gram Stain - Preliminary Hip - Left H & H 09/04/23 09/05/23 Range/Units 12:27 05:32 Hgb 10.7 L 9.1 L (11.4-16.0) gm/dL Hct 33.8 L 28.8 L (34.0-46.0) % Coagulation 09/05/23 Range/Units 05:32 INR 0.9 (<1.2) Result Diagrams: 09/05/23 05:32 09/05/23 05:32 Assessment and Plan Assessment: Acute left hip PJI Rheumatoid arthritis Plan: I had a long discussion with the patient on treatment options including a DAIR (debridement, antibiotics, and implant retention), single-stage revision, 1.5 stage revision, and two-stage revision. Given the acute onset and being only 4 weeks from surgery, her age and medical comorbidities and her cultures showing MSSA I think she would be best treated with a DAIR procedure followed by IV antibiotics via a PICC and long-term oral suppressive antibiotics. We discussed this at length including the potential complications including persistent infection and need for further surgery and possible medical complications including . I plan is to use the [facility] (Christ et al 2019) double debridement DAIR procedure. We'll plan for surgery later this afternoon for the first washout and placement of antibiotic impregnated beads and we'll plan to return to the operating room on Monday for the second washout. The procedure was discussed at length with the patient. Culture results from outside facility were also placed into the patient's physical chart.
[2023-09-05] MEDS ORDERED: LACTATED RINGERS 1,000 ML IV ONE (14:30)
[2023-09-05] MEDS ORDERED: ONDANSETRON 4 MG/2 ML VIAL IVP ONE (14:35)
[2023-09-05] MEDS ORDERED: DEXAMETHASONE SOD PHOSPHATE 4 MG/ML 1 ML VIAL IVP ONE (14:35)
[2023-09-05] MEDS ORDERED: fentaNYL (PF) 50 MCG/ML 2 ML AMP ONE (16:05)
[2023-09-05] MEDS ORDERED: ROCURONIUM 10 MG/ML (5 ML VIAL) IV ONE (16:05)
[2023-09-05] MEDS ORDERED: GLYCOPYRROLATE 0.2 MG/ML 2 ML VIAL ONE (16:05)
[2023-09-05] MEDS ORDERED: LIDOCAINE 1% INJ 10MG/ML (20 ML MDV) ONE (16:05)
[2023-09-05] MEDS ORDERED: PROPOFOL 10 MG/ML 20 ML VIAL IV ONE (16:05)
[2023-09-05] MEDS ORDERED: NEOSTIGMINE 1 MG/ML 10 ML VIAL ONE (16:05)
[2023-09-05] MEDS ORDERED: SUCCINYLCHOLINE CHLORIDE 200 MG/10 ML VIAL IV ONE (16:05)
[2023-09-05] MEDS ORDERED: ePHEDrine 50 MG/ML 1 ML VIAL ONE (16:05)
[2023-09-05] MEDS ORDERED: ceFAZolin 1,000 MG VIAL MISCELLANE ONE (16:54)
[2023-09-05] MEDS ORDERED: TOBRAMYCIN SULFATE 1.2 GM VIAL MISCELLANE ONE (16:54)
[2023-09-05] MEDS ORDERED: VANCOMYCIN 1,000 MG VIAL MISCELLANE ONE (16:55)
[2023-09-05] MEDS ORDERED: SODIUM CHLORIDE 0.9% 50 ML with ceFAZolin 1,000 MG IV ONE ×2 (16:55)
--- NOTE | 2023-09-05 17:55 | P.PN ---
Subjective Progress Note Date: 09/05/23 Principal diagnosis: Reason for follow-up is left hip abscess MSSA Patient is a 78-year-old female with a past medical history significant for rheumatoid arthritis history of right breast cancer this patient who is status post left hip replacement on 07/28/2023, did have swelling to the left lower extremity and apparently the patient did have large subcutaneous abscess that was drained in outpatient culture positive for MSSA patient subsequently has been admitted to the hospital for washout of the left hip and antibiotic bead placement. On today's evaluation that is 09/05/2023 patient denies having any fever or any chills patient complaining of feeling thirsty and dry mouth no chest pain shortness with cough no nausea vomiting abdominal pain pain to the left hip is controlled with the pain medication. Patient did have a white count of 4.21 and sed rate of 41 creatinine 0.5 CRP 6.20 Objective - Vital Signs Vital signs: Vital Signs Temp 99.4 F 09/05/23 14:30 Pulse 66 09/05/23 14:30 Resp 16 09/05/23 14:30 BP 111/66 09/05/23 14:30 Pulse Ox 97 09/05/23 14:30 FiO2 Intake & Output 09/04/23 09/05/23 09/05/23 18:59 06:59 18:59 Intake Total 50 Balance 50 Weight 58.967 kg 58.967 kg Intake: IV 50 Other: Voiding Method Toilet # Voids 3 1 - Exam GENERAL DESCRIPTION: An elderly female lying in bed in no distress RESPIRATORY SYSTEM: Unlabored breathing , decreased breath sounds at bases HEART: S1 S2 regular rate and rhythm , ABDOMEN: Soft , no tenderness EXTREMITIES: No edema feet - Labs CBC & Chem 7: 09/05/23 05:32 09/05/23 05:32 Labs: Abnormal Lab Results - Last 24 Hours (Table) 09/05/23 09/05/23 Range/Units 05:32 05:32 WBC 4.21 L (4.50-10.00) X 10*3/uL RBC 3.17 L (4.10-5.20) X 10*6/uL Hgb 9.1 L (12.0-15.0) g/dL Hct 28.8 L (37.2-46.3) % MCHC 31.6 L (32.0-37.0) g/dL RDW 14.9 H (11.5-14.5) % MPV 9.1 L (9.5-12.2) FL ESR 41 H (0-30) mm/Hr Sodium 134 L (135-145) mmol/L Creatinine 0.5 L (0.6-1.5) mg/dL BUN/Creatinine Ratio 23.40 H (12.00-20.00) Ratio Calcium 8.3 L (8.7-10.3) mg/dL C-Reactive Protein 6.20 H (0.00-0.80) mg/dL Microbiology - Last 24 Hours (Table) 09/04/23 14:23 Gram Stain - Preliminary Hip - Left Assessment and Plan (1) MSSA (methicillin susceptible Staphylococcus aureus) infection Current Visit: Yes Status: Acute Code(s): A49.01 - METHICILLIN SUSCEP STAPH INFECTION, UNSP SITE SNOMED Code(s): 872042701 (2) Left hip prosthetic joint infection Current Visit: Yes Status: Acute Code(s): T84.52XA - INFECT/INFLM REACTION DUE TO INTERNAL LEFT HIP PROSTH, INIT SNOMED Code(s): 45292103140533941 Plan: 1patient presented to hospital with a left hip pain swelling redness did have some drainage with recent aspirate in the outpatient setting coming back positive with MSSA very suspicious for underlying left hip septic arthritis 2blood cultures are currently pending, inflammatory markers are elevated 3await left hip washout procedure at scheduled for this afternoon 4patient to continue with cefazolin to 2 g every 8 hours Dictation was produced using Nelbee dictation software. please excuse any grammatical, word or spelling errors. Time with Patient: Less than 30
--- NOTE | 2023-09-05 18:01 | FL ---
EXAMINATION TYPE: FL guidance operating room, XR Hip Limited LT Intraoperative/procedural fluoroscopi c services were provided. Total fluoroscopy time is 3.8 seconds with a total of 1 submitted images to PACS. Please see the operative/procedural note for further details. DAP: 0.2205 mGym2 Gycm2
[2023-09-05] MEDS ORDERED: MORPHINE SULFATE 4 MG/ML SYRINGE IVP ONE ×2 (18:24)
--- NOTE | 2023-09-05 18:28 | P.OP ---
Date of Procedure: 09/05/23 Preoperative Diagnosis: 1. Acute postoperative left periprosthetic total hip infection 2. Rheumatoid arthritis 3. History of breast cancer Postoperative Diagnosis: Same Procedure(s) Performed: 1. Left hip irrigation and debridement (an excisional debridement of all nonviable skin, subcutaneous tissue, and muscle down to the level of the hip joint was performed using a scalpel) 2. Application of negative pressure incisional wound VAC, left hip, less than 50 cm Anesthesia: LEONARDA Surgeon: Kevin Moser Estimated Blood Loss (ml): 300 Pathology: other (Deep Cultures) Condition: stable Disposition: PACU Indications for Procedure: The patient is a very pleasant 78-year-old female with a medical history significant for rheumatoid arthritis and breast cancer who underwent a left total hip replacement through a direct anterior approach in early July 2023. She initially did well but developed significant swelling in her leg following surgery. An ultrasound was obtained which showed no evidence of DVT. She improved and initially had a well-healed incision with no erythema or sign of infection. Last week she was putting away [place] decorations and she thinks she may have overdone it and developed increased pain in her left hip. She presented to my office last with significant swelling and a large subcutaneous abscess with overlying erythema anterior to the left hip. I was able to aspirate 70 mL's of purulence. This was sent for cultures and came back positive for MSSA. We discussed admitting the patient to the hospital but the patient was adamant that she wanted to attend her 's surprise 79th birthday democrat 2 days later. I met with the patient on Monday to discuss treatment options. We discussed a DAIR procedure, one stage revision, 1.5 stage revision, and a 2 stage revision. Given the patient's age, duration since llamas rgery, medical conditions, and cultures growing MSSA my recommendation was to perform a DAIR procedure. A long discussion on the potential risks and complications of surgery including but certainly not limited to risks from anesthesia, superficial infection, deep infection, recurrence or persistence of periprosthetic joint infection requiring further surgery including revision to a spacer and possibly Girdlestone resection, fracture, dislocation have a damage to neurovascular structures, an inability to regain preinjury level of function, medical complications, and possibly . The patient and her understand all of these risks and were given ample time to answer questions. Operative Findings: There is diffuse swelling erythema and superficial wound dehiscence over the incision. Immediately upon making skin incision dissect the subcutaneous tissue a large abscess was encountered which tracked down to the hip joint. Multiple cultures were taken. After the hip joint was exposed I gently attempted to disengage the femoral head from the Randall taper the femoral stem. After several gentle taps with a mallet bone tamp the stem appeared to have slightly debonded from the cement. Rather than continue with a full on revision with a cement and cement revision or removing attempting to remove a cement mantle through the DA approach, I elected to debride the hip, place antibiotic beads, and make a final decision on femoral fixation at her second debridement. Description of Procedure: The patient identified in preoperative holding and the correct left leg was marked with my initials. I reviewed the consent form with the patient and her . All of their questions were answered. The patient was then brought [facility] to the operating room. She was given a general anesthetic by anesthesia. Boots were applied to both feet. She was then carefully transferred onto the [place] table. Nonsterile drapes were applied. A pre-scrub was performed with a chlorhexidine scrub brush. The left hip was then prepped and draped in the standard sterile fashion. Prior to starting surgery timeout was performed identifying the correct patient, operative extremity, and procedure. Before beginning the procedure antibiotic beads were prepared. 2 g of vancomycin powder, 2 g of Cefazolin powder, and 1 g of tobramycin powder was placed in a plastic sterile bowl. One bag of [place] cement was then added. After the cement had reached doughy consistency it was applied to a strand of #1 PDS making 17 one-cm cement beads. This was placed on the back table and allowed to harden for placement on the wound later in the procedure. The prior skin incision was made ellipsing out the open area over the middle third of the incision. Skin margins were sharply debrided with a scalpel. Immediately upon dissecting in the subcutaneous Tissue a large abscess was encountered with gross purulence tracking down to the hip joint. Two cultures were obtained. 3 L of sterile saline was used to thoroughly irrigate the wound. I then circumferentially exposed the hip joint. Retractors were placed around the hip. Traction was applied through the [place] table. With traction applied I gently tapped the femoral head to disengage the Randall taper. After several gentle mallet taps the femoral stem appeared to have debonded from the cement and was slightly proud. Rather than continue with a full on revision which we were not prepared to do I made the decision to proceed with an extensive irrigation and debridement. All nonviable skin, subcutaneous tissue, muscle, fascia, and joint capsule were sharply debrided with a scalpel. The wound was then soaked in a dilute Betadine rinse for 3 minutes. The wound was thoroughly irrigated with 3 L of sterile saline using pulsatile lavage. The wound was then irrigated with a dilute chlorhexidine solution and allowed to soak for 3 minutes. The wound was then thoroughly irrigated with 3 L of sterile saline. The wound was then soaked with a dilute peroxide rinse for 3 minutes. The wound was then thoroughly irrigated with a final 3 L of sterile saline. Final x-rays were taken showing no obvious fractures. The antibiotic beads were then placed deep within the wound. The deep subcutaneous layer was closed with a running monofilament suture. The skin was closed with a running 2-0 nylon stitch. An incisional wound VAC was then applied over the closed incision. All instrument, sponge, and sharp counts were correct. The patient was then transferred off of the OR table in her boots were removed. Leg lengths felt acceptable. She was brought to recovery having tolerated the procedure well. Plan: The patient can toe-touch weight-bear on her left lower extremity. I would like her to mobilize out of bed into a chair. She will receive IV antibiotics at the recommendation of infectious disease. I will plan for a second debridement and possible femoral revision versus headliner exchange versus conversion to a spacer this coming Monday.
[2023-09-05] MEDS: HYDROcodone/APAP 5-325MG 1 EACH TAB PO PRN (19:45)
[2023-09-05] MEDS: SODIUM CHLORIDE 0.9% 1,000 ML IV SCH (23:15)
[2023-09-06] MEDS: HYDROcodone/APAP 5-325MG 1 EACH TAB PO PRN ×4 (02:00→20:21)
[2023-09-06] MEDS: SODIUM CHLORIDE 0.9% 1,000 ML IV SCH ×2 (02:55→17:17)
[2023-09-06] MEDS: SENNOSIDES 8.6 MG TAB PO SCH ×2 (08:02→20:21)
[2023-09-06] MEDS: MULTIVITAMINS, THERA 1 EACH TAB PO SCH (08:02)
[2023-09-06] MEDS: CYANOCOBALAMIN 500 MCG TAB PO SCH (08:02)
[2023-09-06] MEDS: PANTOPRAZOLE 40 MG TABLET PO SCH (08:02)
[2023-09-06] MEDS: NIFEdipine XL 30 MG TAB.ER.24 PO SCH (08:02)
[2023-09-06] MEDS: MAGNESIUM OXIDE 400 MG TAB PO SCH (08:02)
[2023-09-06] MEDS: LACTOBACILLUS ACIDOPHILUS/PECT 1 EACH CAPSULE PO SCH (08:02)
[2023-09-06] MEDS: VIT A,C & E-LUTEIN-MINERALS 1 EACH TAB PO SCH (08:02)
[2023-09-06] MEDS: ZINC SULFATE 220 MG CAP PO SCH (08:02)
--- NOTE | 2023-09-06 09:03 | PN ---
PROGRESS NOTE DATE OF SERVICE: 09/05/2023 SUBJECTIVE: This is a 78-year-old woman who was admitted with left hip infection, is medically stable. Surgery is being planned by Orthopedic surgery. No chest pain, no palpitations, no fever. OBJECTIVE: VITAL SIGNS: Pulse 72, blood pressure 102/65, respirations 21. CHEST: Clear to auscultation. CARDIOVASCULAR: S1, S2 muffled. ABDOMEN: Soft. LABORATORY DATA: Hemoglobin 9.1, otherwise sodium 134. C-reactive protein 6.20. ASSESSMENT: 1. Status post left hip direct arthroplasty with wound infection with failure of outpatient treatment. 2. Rheumatoid arthritis. 3. History of right breast cancer. 4. History of Raynaud's phenomenon. 5. History of DJD. 6. Hyperkalemia, improved. 7. Mild hyponatremia. 8. Anemia, multifactorial. RECOMMENDATIONS AND DISCUSSION: This is a 78-year-old woman who presented with multiple complex medical issues. At this time, I recommend to continue current antibiotics. I would recommend to monitor the CBC closely, otherwise DVT prophylaxis, closely follow with Infectious Disease. Rest of recommendations per surgery. Further recommendations to follow. DVT prophylaxis. MMODL / IJN: [id number] /
[2023-09-06 10:49] LABS: Basophils # (A) 0.04 X 10*3/uL (0.00-0.10); Basophils % (A) 0.5 %; Eosinophils % (A) 1.2 %; HCT 26.2 % (37.2-46.3); HGB 8.2 g/dL (12.0-15.0); Lymphocytes % (A) 16.9 %; MCH 29.2 pg (27.0-32.0); MCHC 31.3 g/dL (32.0-37.0); MCV 93.2 FL (80.0-97.0); Mean Platelet Volume 8.8 FL (9.5-12.2); Monocytes # (A) 0.76 X 10*3/uL (0.20-1.00); Monocytes % (A) 9.2 %; NRBC Per 100 WBC 0 X 10*3/uL (0.00-0.01); Neutrophils # (A) 5.85 X 10*3/uL (1.80-7.70); Neutrophils % (A) 70.7 %; Platelet Count 373 X 10*3/uL (140-440); RBC 2.81 X 10*6/uL (4.10-5.20); RDW 15.2 % (11.5-14.5); WBC 8.27 X 10*3/uL (4.50-10.00)
[2023-09-06] MEDS: HEPARIN SODIUM,PORCINE 5,000 UNIT/ML 1 ML VIAL SQ SCH ×2 (13:12→23:53)
[2023-09-06] MEDS: THIAMINE 100 MG TAB PO SCH (18:00)
--- NOTE | 2023-09-06 19:37 | P.PN ---
Subjective She was seen at bedside tonight. She is complaining of mild pain in her left hip and swelling throughout the left leg. Objective - Vital Signs Vital signs: Vital Signs Temp 97.8 F 09/06/23 14:07 Pulse 69 09/06/23 14:07 Resp 19 09/06/23 14:07 BP 106/66 09/06/23 14:07 Pulse Ox 95 09/06/23 14:07 FiO2 Intake & Output 09/06/23 09/06/23 09/07/23 06:59 18:59 06:59 Intake Total 1430 Output Total 472 Balance 958 Intake: Intake, IV Titration 950 Amount Sodium Chloride 0.9% 1, 900 000 ml @ 75 mls/hr IV . [id number] AFUA Rx#:[id number] ceFAZolin 2 gm In Sodium 50 Chloride 0.9% 50 ml @ 100 mls/hr IVPB Q8H AFUA Rx#: [id number] Oral 480 Output: Urine 450 Post Void Residual 22 Other: Voiding Method Toilet # Voids 1 - Exam The patient is alert and able to answer questions. A focused exam of the left lower extremity was conducted. On inspection there is a intact incisional wound VAC with good seal. There is diffuse swelling throughout the thigh and leg. Distally she is able to actively plantarflex and dorsiflex her ankle and her toes.n - Labs CBC & Chem 7: 09/06/23 07:33 09/05/23 05:32 Labs: Abnormal Lab Results - Last 24 Hours (Table) 09/06/23 Range/Units 07:33 RBC 2.81 L (4.10-5.20) X 10*6/uL Hgb 8.2 L (12.0-15.0) g/dL Hct 26.2 L (37.2-46.3) % MCHC 31.3 L (32.0-37.0) g/dL RDW 15.2 H (11.5-14.5) % MPV 8.8 L (9.5-12.2) FL Immature Gran # 0.12 H (0.00-0.04) X 10*3/uL Microbiology - Last 24 Hours (Table) 09/05/23 17:52 Gram Stain - Preliminary Hip - Left 09/05/23 17:52 Gram Stain - Preliminary Hip - Left 09/04/23 14:23 Gram Stain - Final Hip - Left Wound Culture - Final Staphylococcus aureus 09/04/23 12:30 Blood Culture - Preliminary Blood 09/04/23 12:45 Blood Culture - Preliminary Blood Assessment and Plan Assessment: 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 IV antibiotics at the recommendation of infectious disease. The patient states that she is getting her PICC line tomorrow. We will plan on repeat debridement, removal of antibiotic beads and likely revision of the femoral implant and head and liner exchange this coming Monday.
[2023-09-06] MEDS: MELATONIN 5 MG TABLET PO PRN (23:53)
[2023-09-07] MEDS: SODIUM CHLORIDE 0.9% 1,000 ML IV SCH ×2 (01:48→18:44)
[2023-09-07] MEDS: HYDROcodone/APAP 5-325MG 1 EACH TAB PO PRN ×4 (02:08→19:47)
[2023-09-07] MEDS ORDERED: bisacodyL 10 MG SUPP RECTAL PRN (06:51)
[2023-09-07 07:54] LABS: INR 0.9 (<1.2); Prothrombin Time 10.4 sec (10.0-12.5)
[2023-09-07] MEDS ORDERED: polyethylene glycoL 3350 17 GM POWD.PACK PO ONE (08:00)
[2023-09-07] MEDS: PANTOPRAZOLE 40 MG TABLET PO SCH (08:18)
[2023-09-07] MEDS: VIT A,C & E-LUTEIN-MINERALS 1 EACH TAB PO SCH (08:18)
[2023-09-07] MEDS: LACTOBACILLUS ACIDOPHILUS/PECT 1 EACH CAPSULE PO SCH (08:18)
[2023-09-07] MEDS: CYANOCOBALAMIN 500 MCG TAB PO SCH (08:18)
[2023-09-07] MEDS: ZINC SULFATE 220 MG CAP PO SCH (08:18)
[2023-09-07] MEDS: MAGNESIUM OXIDE 400 MG TAB PO SCH (08:18)
[2023-09-07] MEDS: THIAMINE 100 MG TAB PO SCH ×2 (08:18→18:10)
[2023-09-07] MEDS: MULTIVITAMINS, THERA 1 EACH TAB PO SCH (08:19)
[2023-09-07] MEDS: SENNOSIDES 8.6 MG TAB PO SCH ×2 (08:19→19:47)
[2023-09-07] MEDS: NIFEdipine XL 30 MG TAB.ER.24 PO SCH (08:19)
[2023-09-07 09:03] LABS: Calcium 8.3 mg/dL (8.7-10.3); Carbon Dioxide 24.4 mmol/L (21.6-31.8); Chloride 103 mmol/L (96-109); Glucose 118 mg/dL (70-110); Potassium 5.1 mmol/L (3.5-5.5); Sodium 135 mmol/L (135-145)
--- NOTE | 2023-09-07 09:07 | PN ---
PROGRESS NOTE DATE OF SERVICE: 09/06/2023 SUBJECTIVE: This 78-year-old woman was admitted with very prosthetic infection, acute and severe pain and failure of outpatient treatment, underwent irrigation and excision surgery yesterday by Dr. Moser. A wound VAC was placed. The patient has very poor social support according to her with elderly . Otherwise, white count is 8.2, hemoglobin is steadily dropping at 8.2. The patient is also complaining of some pain. There is no history of any fever, rigors, or chills. C-reactive protein is elevated at 6.20. The patient is on empiric antibiotics. Culture are showing Staph aureus, which is MSSA. Dr. Kaplan and multiple consultants are following the patient closely. PAST MEDICAL HISTORY: Reviewed. REVIEW OF SYSTEMS: A 14-point review is negative except as mentioned. CURRENT MEDICATIONS: Reviewed include cefazolin, dose and rest of medications noted. PHYSICAL EXAMINATION: VITAL SIGNS: Pulse 74, blood pressure 94/50, respirations 17. HEENT: Conjunctivae normal. NECK: No jugular venous distention. CARDIOVASCULAR: S1, S2 muffled. RESPIRATIONS: Diminished at the bases, no rhonchi. ABDOMEN: Soft. LEGS: Status post left hip arthroplasty. LABORATORY DATA: Hemoglobin 8.2. ASSESSMENT: 1. Status post left hip direct arthroplasty and acute left hip periprosthetic infection with failure of outpatient treatment, status post irrigation and debridement and antibiotic bead placement. 2. Wound VAC placement. 3. Anemia, multifactorial, progress was declining. 4. Gait dysfunction. 5. Severe pain. 6. Rheumatoid arthritis. 7. History of right breast cancer. 8. History of Raynaud syndrome. 9. History of DJD. 10.Poor social support. 11.Hyperkalemia, improved. 12.Mild hyponatremia. 13.Anemia, multifactorial. 14.Full code. RECOMMENDATIONS: This is a 78-year-old woman presented with multiple complex medical issues, we will monitor the patient closely. Continue the antibiotics and will repeat the labs, follow the hemoglobin closely pain management, PT OT evaluation. The patient might require possible ECF rehab because of the poor social support and multiple complex medical issues including current wound VAC placement and need for continuous monitoring. Prognosis guarded. Further recommendations to follow. Closely follow with Infectious Disease and as well as Orthopedic surgery. The patient might require a PICC line with long-term antibiotic treatment also. MMODL / IJN: [id number] / [facility]#: [id number]
[2023-09-07 09:28] LABS: Basophils # (A) 0.05 X 10*3/uL (0.00-0.10); Basophils % (A) 0.6 %; Eosinophils # (A) 0.32 X 10*3/uL (0.04-0.35); Eosinophils % (A) 4.2 %; HCT 24.8 % (37.2-46.3); HGB 7.5 g/dL (12.0-15.0); Lymphocytes # (A) 0.98 X 10*3/uL (0.90-5.00); Lymphocytes % (A) 12.7 %; MCH 28.1 pg (27.0-32.0); MCHC 30.2 g/dL (32.0-37.0); MCV 92.9 FL (80.0-97.0); Mean Platelet Volume 9.1 FL (9.5-12.2); Monocytes # (A) 0.51 X 10*3/uL (0.20-1.00); Monocytes % (A) 6.6 %; NRBC Per 100 WBC 0 X 10*3/uL (0.00-0.01); Neutrophils # (A) 5.74 X 10*3/uL (1.80-7.70); Neutrophils % (A) 74.6 %; Platelet Count 383 X 10*3/uL (140-440); RBC 2.67 X 10*6/uL (4.10-5.20); RDW 15.3 % (11.5-14.5)
[2023-09-07] MEDS: HEPARIN SODIUM,PORCINE 5,000 UNIT/ML 1 ML VIAL SQ SCH ×2 (13:02→23:22)
[2023-09-07] MEDS: FOLIC ACID 1 MG TAB PO SCH (13:25)
--- NOTE | 2023-09-07 15:04 | P.PN ---
Subjective Progress Note Date: 09/06/23 Principal diagnosis: Reason for follow-up is left hip abscess MSSA Patient is a 78-year-old female with a past medical history significant for rheumatoid arthritis history of right breast cancer this patient who is status post left hip replacement on 07/28/2023, did have swelling to the left lower extremity and apparently the patient did have large subcutaneous abscess that was drained in outpatient culture positive for MSSA patient subsequently has been admitted to the hospital for washout of the left hip and antibiotic bead placement. Patient is status post left hip irrigation and debridement an excisional debridement of all nonviable skin, subcutaneous tissu e, and muscle down to the level of the hip joint was performed using a scalpel and Application of negative pressure incisional wound VAC, left hip on 09/05/2023 On today's evaluation that is 09/06/2023 patient remains to be afebrile, patient is breathing comfortably on room air, no chest pain shortness with cough no nausea vomiting abdominal pain pain to the left hip is controlled with the pain medication. Patient did have a white count of 8.27, creatinine 0.5 CRP 6.20 and sed rate of 41 Objective - Vital Signs Vital signs: Vital Signs Temp 98.5 F 09/06/23 08:04 Pulse 72 09/06/23 08:04 Resp 19 09/06/23 08:04 BP 100/61 09/06/23 08:04 Pulse Ox 95 09/06/23 08:04 FiO2 Intake & Output 09/05/23 09/06/23 09/06/23 18:59 06:59 18:59 Intake Total 750 Output Total 300 222 Balance 450 -222 Intake: IV 750 Output: Urine 200 Post Void Residual 22 Estimated Blood Loss 300 Other: Voiding Method Toilet # Voids 1 1 - Exam GENERAL DESCRIPTION: An elderly female lying in bed in no distress RESPIRATORY SYSTEM: Unlabored breathing , decreased breath sounds at bases HEART: S1 S2 regular rate and rhythm , ABDOMEN: Soft , no tenderness EXTREMITIES: No edema feet - Labs CBC & Chem 7: 09/07/23 05:56 09/07/23 05:56 Labs: Abnormal Lab Results - Last 24 Hours (Table) 09/06/23 Range/Units 07:33 RBC 2.81 L (4.10-5.20) X 10*6/uL Hgb 8.2 L (12.0-15.0) g/dL Hct 26.2 L (37.2-46.3) % MCHC 31.3 L (32.0-37.0) g/dL RDW 15.2 H (11.5-14.5) % MPV 8.8 L (9.5-12.2) FL Immature Gran # 0.12 H (0.00-0.04) X 10*3/uL Microbiology - Last 24 Hours (Table) 09/04/23 14:23 Gram Stain - Final Hip - Left Wound Culture - Final Staphylococcus aureus 09/04/23 12:30 Blood Culture - Preliminary Blood 09/04/23 12:45 Blood Culture - Preliminary Blood Assessment and Plan (1) MSSA (methicillin susceptible Staphylococcus aureus) infection Current Visit: Yes Status: Acute Code(s): A49.01 - METHICILLIN SUSCEP STAPH INFECTION, UNSP SITE SNOMED Code(s): 137683175 (2) Left hip prosthetic joint infection Current Visit: Yes Status: Acute Code(s): T84.52XA - INFECT/INFLM REACTION DUE TO INTERNAL LEFT HIP PROSTH, INIT SNOMED Code(s): 52994329010562876 Plan: 1patient presented to hospital with a left hip pain swelling redness did have some drainage with recent aspirate in the outpatient setting coming back positive with MSSA very suspicious for underlying left hip septic arthritis 2blood cultures are currently pending, inflammatory markers are elevated 3patient is status post Left hip irrigation and excisional debridement of all nonviable skin, subcutaneous tissue, and muscle down to the level of the hip joint was performed using a scalpel and Application of negative pressure incisional wound VAC completed on 09/05/2023 4patient to continue with cefazolin to 2 g every 8 hours, we will order PICC line for outpatient IV antibiotics Dictation was produced using [employer] dictation software. please excuse any grammatical, word or spelling errors. Time with Patient: Less than 30
--- NOTE | 2023-09-07 15:05 | P.PN ---
Subjective Progress Note Date: 09/07/23 Principal diagnosis: Reason for follow-up is left hip abscess MSSA Patient is a 78-year-old female with a past medical history significant for rheumatoid arthritis history of right breast cancer this patient who is status post left hip replacement on 07/28/2023, did have swelling to the left lower extremity and apparently the patient did have large subcutaneous abscess that was drained in outpatient culture positive for MSSA patient subsequently has been admitted to the hospital for washout of the left hip and antibiotic bead placement. Patient is status post left hip irrigation and debridement an excisional debridement of all nonviable skin, subcutaneous tissu e, and muscle down to the level of the hip joint was performed using a scalpel and Application of negative pressure incisional wound VAC, left hip on 09/05/2023 On today's evaluation that is 09/07/2023 patient continues to be afebrile, patient is breathing comfortably on room air without need for supplemental oxygen, the patient denies chest pain shortness with cough no nausea vomiting abdominal pain pain to the left hip is controlled with the pain medication. Patient did have a white count of 7.70, creatinine 0.6, CRP 6.20 and sed rate of 41 left hip culture with MSSA blood culture negative Objective - Vital Signs Vital signs: Vital Signs Temp 97.9 F 09/07/23 08:00 Pulse 66 09/07/23 08:00 Resp 16 09/07/23 08:00 BP 103/55 09/07/23 08:00 Pulse Ox 97 09/07/23 08:00 FiO2 Intake & Output 09/06/23 09/07/23 09/07/23 18:59 06:59 18:59 Intake Total 1430 530 Output Total 472 100 Balance 958 430 Intake: Intake, IV Titration 950 50 Amount Sodium Chloride 0.9% 1, 900 000 ml @ 75 mls/hr IV . [id number] AFUA Rx#:[id number] ceFAZolin 2 gm In Sodium 50 50 Chloride 0.9% 50 ml @ 100 mls/hr IVPB Q8H AFUA Rx#: [id number] Oral 480 480 Output: Drainage 100 Left Hip 100 Urine 450 Post Void Residual 22 Other: Voiding Method Bedside Commode # Voids 3 - Exam GENERAL DESCRIPTION: An elderly female lying in bed in no distress RESPIRATORY SYSTEM: Unlabored breathing , decreased breath sounds at bases HEART: S1 S2 regular rate and rhythm , ABDOMEN: Soft , no tenderness EXTREMITIES: No edema feet - Labs CBC & Chem 7: 09/07/23 05:56 09/07/23 05:56 Labs: Abnormal Lab Results - Last 24 Hours (Table) 09/07/23 09/07/23 Range/Units 05:56 05:56 RBC 2.67 L (4.10-5.20) X 10*6/uL Hgb 7.5 L (12.0-15.0) g/dL Hct 24.8 L (37.2-46.3) % MCHC 30.2 L (32.0-37.0) g/dL RDW 15.3 H (11.5-14.5) % MPV 9.1 L (9.5-12.2) FL Immature Gran # 0.10 H (0.00-0.04) X 10*3/uL Glucose 118 H (70-110) mg/dL Calcium 8.3 L (8.7-10.3) mg/dL Microbiology - Last 24 Hours (Table) 09/05/23 17:52 Gram Stain - Preliminary Hip - Left Wound Culture - Preliminary Presumptive Staph aureus 09/05/23 17:52 Gram Stain - Preliminary Hip - Left Wound Culture - Preliminary Presumptive Staph aureus 09/04/23 12:30 Blood Culture - Preliminary Blood 09/04/23 12:45 Blood Culture - Preliminary Blood 09/04/23 14:23 Gram Stain - Final Hip - Left Wound Culture - Final Staphylococcus aureus Assessment and Plan (1) MSSA (methicillin susceptible Staphylococcus aureus) infection Current Visit: Yes Status: Acute Code(s): A49.01 - METHICILLIN SUSCEP STAPH INFECTION, UNSP SITE SNOMED Code(s): 325975612 (2) Left hip prosthetic joint infection Current Visit: Yes Status: Acute Code(s): T84.52XA - INFECT/INFLM REACTION DUE TO INTERNAL LEFT HIP PROSTH, INIT SNOMED Code(s): 86104970118050546 Plan: 1patient presented to hospital with a left hip pain swelling redness did have some drainage with recent aspirate in the outpatient setting coming back positive with MSSA very suspicious for underlying left hip septic arthritis 2blood cultures are so far negative local culture positive for MSSA 3patient is status post Left hip irrigation and excisional debridement of all nonviable skin, subcutaneous tissue, and muscle down to the level of the hip joint was performed using a scalpel and Application of negative pressure incisional wound VAC completed on 09/05/2023 4patient to continue with cefazolin to 2 g every 8 hours, patient did get a PICC line for outpatient IV antibiotics, discussed with director of casework services to arrange for outpatient antibiotic on discharge Dictation was produced using [employer] dictation software. please excuse any grammatical, word or spelling errors. Time with Patient: Less than 30
--- NOTE | 2023-09-07 15:33 | P.OP ---
Date of Procedure: 09/07/23 Description of Procedure: Preoperative Diagnosis: Need for long-term IV antibiotic access. Postoperative Diagnosis: Same. Procedure(s) Performed: Ultrasound-guided cannulation left brachial vein. Insertion of peripherally inserted central catheter under fluoroscopic guidance. Anesthesia: local 1% lidocaine plain Surgeon: Pelon Estimated Blood Loss (ml): 5 IV fluids (ml): 0 Urine output (ml): 0 Pathology: none sent Condition: stable Disposition: no change Indications for Procedure: Patient requires long-term IV antibiotics as an outpatient patient is offered a PICC line to allow for intravenous administration of antibiotics. Description of Procedure: Patient was brought to the special procedure suite. The left upper extremity sterilely prepped and draped in usual manner. Ultrasound was utilized to identify the basilic vein which was normally compressible free of visible thrombus. Permenant image was stored. 1% Xylocaine was utilized for local anesthesia tissues overlying the vein. Through this anesthetized area and with the aid of ultrasound a micropuncture needle was utilized to cannulate the vein. Once cannulated, Softip guidewire was advanced into the vein. The needle was withdrawn and a micropuncture sheath and dilator advanced over the guidewire. The guidewire was withdrawn and exchanged for the PICC guidewire and measured 40 cm to the cavoatrial junction. The catheter was cut to size and advanced into the cavoatrial junction without resistance. The sheath was peeled away. Blood was easily withdrawn through the catheter and the catheter was then flushed with heparinized saline solution and secured to the skin. Patient tolerated procedure well and was returned to their room in satisfactory and stable condition.
--- NOTE | 2023-09-07 18:32 | P.PN ---
Subjective Patient seen earlier this morning. No acute complaints. Objective - Vital Signs Vital signs: Vital Signs Temp 98.3 F 09/07/23 14:00 Pulse 66 09/07/23 08:00 Resp 16 09/07/23 14:00 BP 101/64 09/07/23 14:00 Pulse Ox 95 09/07/23 14:00 FiO2 Intake & Output 09/06/23 09/07/23 09/07/23 18:59 06:59 18:59 Intake Total 1430 1520 Output Total 472 250 Balance 958 1270 Intake: Intake, IV Titration 950 800 Amount Sodium Chloride 0.9% 1, 900 750 000 ml @ 75 mls/hr IV . [id number] AFUA Rx#:[id number] ceFAZolin 2 gm In Sodium 50 50 Chloride 0.9% 50 ml @ 100 mls/hr IVPB Q8H AFUA Rx#: [id number] Oral 480 720 Output: Drainage 250 Left Hip 250 Urine 450 Post Void Residual 22 Other: Voiding Method Bedside Commode # Voids 3 2 - Exam Resting comfortably in bed. No apparent distress. Swelling in leg. Wound VAC in place. - Labs CBC & Chem 7: 09/07/23 05:56 09/07/23 05:56 Labs: Abnormal Lab Results - Last 24 Hours (Table) 09/07/23 09/07/23 Range/Units 05:56 05:56 RBC 2.67 L (4.10-5.20) X 10*6/uL Hgb 7.5 L (12.0-15.0) g/dL Hct 24.8 L (37.2-46.3) % MCHC 30.2 L (32.0-37.0) g/dL RDW 15.3 H (11.5-14.5) % MPV 9.1 L (9.5-12.2) FL Immature Gran # 0.10 H (0.00-0.04) X 10*3/uL Glucose 118 H (70-110) mg/dL Calcium 8.3 L (8.7-10.3) mg/dL Microbiology - Last 24 Hours (Table) 09/05/23 17:52 Gram Stain - Preliminary Hip - Left Wound Culture - Preliminary Presumptive Staph aureus 09/05/23 17:52 Gram Stain - Preliminary Hip - Left Wound Culture - Preliminary Presumptive Staph aureus 09/04/23 12:30 Blood Culture - Preliminary Blood 09/04/23 12:45 Blood Culture - Preliminary Blood Assessment and Plan Plan: Continue treatment as outlined. IV antibiotics. Return to OR on Monday for repeat I&D/revision/head liner exchange.
--- NOTE | 2023-09-07 18:33 | IR ---
EXAMINATION TYPE: IR cvc insert >=5 years DATE OF EXAM: 09/07/2023 FLUOROSCOPY ABX, 40cm, left brachial vein, 1min fluoro, 0.903Ihav6. 82 images submitted.
[2023-09-07] MEDS ORDERED: bisacodyL 10 MG SUPP RECTAL ONE (22:12)
[2023-09-07 23:07] LABS: % Iron Saturation 7.94 (12.00-45.00)
[2023-09-07] MEDS: MORPHINE SULFATE 4 MG/ML SYRINGE IVP PRN (23:22)
[2023-09-07] MEDS: MELATONIN 5 MG TABLET PO PRN (23:22)
--- NOTE | 2023-09-08 00:34 | PN ---
PROGRESS NOTE DATE OF SERVICE: 09/07/2023 SUBJECTIVE: This 78-year-old woman with past medical history of multiple medical problems, admitted with left hip infection. The cultures are growing MSSA, rest of the cultures are pending. There is no chest pain, no palpitation. PICC line is being planned. OBJECTIVE: VITAL SIGNS: Pulse 67, blood pressure 102/60, respirations 17. CHEST: Clear to auscultation. ABDOMEN: Soft. EXTREMITIES: Left hip is status post surgery. LAB: Hemoglobin 7.5. ASSESSMENT: 1. Status post left hip direct arthroplasty and acute left hip periprosthetic infection with failure of outpatient treatment, status post irrigation debridement, antibiotic bead placement. 2. MSSA from the cultures. Wound VAC placement. 3. Anemia multifactorial, progressing which was present before admission, multifactorial. 4. Gait dysfunction. 5. Severe pain. 6. Rheumatoid arthritis. 7. History of right breast cancer. 8. Raynaud's phenomenon. 9. History of DJD. 10.Poor social support. 11.Multiple complex medical issues. RECOMMENDATIONS: Recommended to continue current management, continue symptomatic treatment. Repeat hemoglobin. If hemoglobin is less than 7, we will transfuse, symptomatic anemia. Otherwise, repeat labs, PICC line, possible antibiotics. Guarded prognosis. Further recommendations to follow. MMODL / IJN: [id number] /
[2023-09-08] MEDS: HYDROcodone/APAP 5-325MG 1 EACH TAB PO PRN ×3 (05:32→17:39)
[2023-09-08] MEDS: NIFEdipine XL 30 MG TAB.ER.24 PO SCH (09:25)
[2023-09-08] MEDS: VIT A,C & E-LUTEIN-MINERALS 1 EACH TAB PO SCH (09:25)
[2023-09-08] MEDS: MAGNESIUM OXIDE 400 MG TAB PO SCH (09:25)
[2023-09-08] MEDS: CYANOCOBALAMIN 500 MCG TAB PO SCH (09:25)
[2023-09-08] MEDS: LACTOBACILLUS ACIDOPHILUS/PECT 1 EACH CAPSULE PO SCH (09:25)
[2023-09-08] MEDS: PANTOPRAZOLE 40 MG TABLET PO SCH (09:25)
[2023-09-08] MEDS: THIAMINE 100 MG TAB PO SCH ×2 (09:25→17:23)
[2023-09-08] MEDS: ZINC SULFATE 220 MG CAP PO SCH (09:26)
[2023-09-08] MEDS: SENNOSIDES 8.6 MG TAB PO SCH ×2 (09:33→20:12)
[2023-09-08] MEDS: MULTIVITAMINS, THERA 1 EACH TAB PO SCH (09:33)
[2023-09-08 11:07] LABS: Basophils # (A) 0.04 X 10*3/uL (0.00-0.10); Basophils % (A) 0.6 %; Eosinophils # (A) 0.33 X 10*3/uL (0.04-0.35); Eosinophils % (A) 4.9 %; HCT 23.9 % (37.2-46.3); HGB 7.3 g/dL (12.0-15.0); Lymphocytes # (A) 0.95 X 10*3/uL (0.90-5.00); MCH 28.4 pg (27.0-32.0); MCHC 30.5 g/dL (32.0-37.0); Mean Platelet Volume 8.6 FL (9.5-12.2); Monocytes # (A) 0.49 X 10*3/uL (0.20-1.00); Monocytes % (A) 7.2 %; NRBC Per 100 WBC 0 X 10*3/uL (0.00-0.01); Neutrophils # (A) 4.88 X 10*3/uL (1.80-7.70); Neutrophils % (A) 72.1 %; Platelet Count 375 X 10*3/uL (140-440); RBC 2.57 X 10*6/uL (4.10-5.20); RDW 15.4 % (11.5-14.5); WBC 6.77 X 10*3/uL (4.50-10.00)
[2023-09-08 11:48] LABS: ALT 9 U/L (8-44); AST 21 U/L (13-35); Albumin 2.5 g/dL (3.8-4.9); Albumin/Globulin Ratio 1.04 Ratio (1.60-3.17); Alkaline Phosphatase 80 U/L (41-126); BUN/Creat Ratio 13.29 Ratio (12.00-20.00); Blood Urea Nitrogen 9.3 mg/dL (9.0-27.0); Carbon Dioxide 25.6 mmol/L (21.6-31.8); Chloride 104 mmol/L (96-109); Globulin 2.4 g/dL (1.6-3.3); Glucose 113 mg/dL (70-110); Potassium 4.4 mmol/L (3.5-5.5); Sodium 135 mmol/L (135-145); Total Bilirubin <0.2 mg/dL (0.3-1.2); Total Protein 4.9 g/dL (6.2-8.2)
[2023-09-08] MEDS: FOLIC ACID 1 MG TAB PO SCH (12:23)
[2023-09-08] MEDS: HEPARIN SODIUM,PORCINE 5,000 UNIT/ML 1 ML VIAL SQ SCH (12:24)
[2023-09-08] MEDS: SODIUM CHLORIDE 0.9% 1,000 ML IV SCH ×2 (12:25→22:34)
--- NOTE | 2023-09-08 20:54 | P.PN ---
Subjective Progress Note Date: 09/08/23 Principal diagnosis: Reason for follow-up is left hip abscess MSSA Patient is a 78-year-old female with a past medical history significant for rheumatoid arthritis history of right breast cancer this patient who is status post left hip replacement on 07/28/2023, did have swelling to the left lower extremity and apparently the patient did have large subcutaneous abscess that was drained in outpatient culture positive for MSSA patient subsequently has been admitted to the hospital for washout of the left hip and antibiotic bead placement. Patient is status post left hip irrigation and debridement an excisional debridement of all nonviable skin, subcutaneous tissu e, and muscle down to the level of the hip joint was performed using a scalpel and Application of negative pressure incisional wound VAC, left hip on 09/05/2023 On today's evaluation that is 09/08/2023 patient remains to be afebrile, patient is breathing comfortably on room air, the patient denies chest pain shortness breath and no cough, the patient denies nausea vomiting abdominal pain pain to the left hip is controlled with the pain medication. Patient did have a white count of 6.7, creatinine 0.7, CRP 6.20 and sed rate of 41 left hip culture with MSSA blood culture negative Objective - Vital Signs Vital signs: Vital Signs Temp 98.1 F 09/08/23 08:00 Pulse 70 09/08/23 08:00 Resp 16 09/08/23 08:00 BP 115/69 09/08/23 08:00 Pulse Ox 95 09/08/23 08:00 FiO2 Intake & Output 09/07/23 09/08/23 09/08/23 18:59 06:59 18:59 Intake Total 1520 Output Total 250 1 100 Balance 1270 -1 -100 Intake: Intake, IV Titration 800 Amount Sodium Chloride 0.9% 1, 750 000 ml @ 75 mls/hr IV . [id number] AFUA Rx#:[id number] ceFAZolin 2 gm In Sodium 50 Chloride 0.9% 50 ml @ 100 mls/hr IVPB Q8H AFUA Rx#: [id number] Oral 720 Output: Drainage 250 100 Left Hip 250 100 Stool 1 Other: Voiding Method Bedside Commode Bedside Commode # Voids 2 2 - Exam GENERAL DESCRIPTION: An elderly female lying in bed in no distress RESPIRATORY SYSTEM: Unlabored breathing , decreased breath sounds at bases HEART: S1 S2 regular rate and rhythm , ABDOMEN: Soft , no tenderness EXTREMITIES: No edema feet - Labs CBC & Chem 7: 09/08/23 06:07 09/08/23 06:07 Labs: Abnormal Lab Results - Last 24 Hours (Table) 09/07/23 09/08/23 09/08/23 Range/Units 05:56 06:07 06:07 RBC 2.57 L (4.10-5.20) X 10*6/uL Hgb 7.3 L (12.0-15.0) g/dL Hct 23.9 L (37.2-46.3) % MCHC 30.5 L (32.0-37.0) g/dL RDW 15.4 H (11.5-14.5) % MPV 8.6 L (9.5-12.2) FL Immature Gran # 0.08 H (0.00-0.04) X 10*3/uL Glucose 113 H (70-110) mg/dL Calcium 8.0 L (8.7-10.3) mg/dL Iron 17 L (50-170) UG/DL TIBC 214 L (228-460) UG/DL % Saturation 7.94 L (12.00-45.00) Transferrin 153.0 L (204.0-354.0) mg/dL Total Bilirubin <0.2 L (0.3-1.2) mg/dL Total Protein 4.9 L (6.2-8.2) g/dL Albumin 2.5 L (3.8-4.9) g/dL Albumin/Globulin Ratio 1.04 L (1.60-3.17) Ratio Microbiology - Last 24 Hours (Table) 09/05/23 17:52 Anaerobic Culture - Preliminary Hip - Left 09/05/23 17:52 Anaerobic Culture - Preliminary Hip - Left 09/05/23 17:52 Gram Stain - Final Hip - Left Wound Culture - Final Staphylococcus aureus 09/05/23 17:52 Gram Stain - Final Hip - Left Wound Culture - Final Staphylococcus aureus 09/04/23 12:30 Blood Culture - Preliminary Blood 09/04/23 12:45 Blood Culture - Preliminary Blood Assessment and Plan (1) MSSA (methicillin susceptible Staphylococcus aureus) infection Current Visit: Yes Status: Acute Code(s): A49.01 - METHICILLIN SUSCEP STAPH INFECTION, UNSP SITE SNOMED Code(s): 648436867 (2) Left hip prosthetic joint infection Current Visit: Yes Status: Acute Code(s): T84.52XA - INFECT/INFLM REACTION DUE TO INTERNAL LEFT HIP PROSTH, INIT SNOMED Code(s): 24724734526638708 Plan: 1patient presented to hospital with a left hip pain swelling redness did have some drainage with recent aspirate in the outpatient setting coming back positive with MSSA very suspicious for underlying left hip septic arthritis 2blood cultures are so far negative local culture positive for MSSA 3patient is status post Left hip irrigation and excisional debridement of all nonviable skin, subcutaneous tissue, and muscle down to the level of the hip joint was performed using a scalpel and Application of negative pressure incisional wound VAC completed on 09/05/2023 4patient to continue with cefazolin to 2 g every 8 hours, and monitor clinical course closely outpatient IV antibiotic arrangement in progress Dictation was produced using [employer] dictation software. please excuse any grammatical, word or spelling errors.
[2023-09-08 21:02] LABS: % Iron Saturation 8.6 (12.00-45.00)
[2023-09-09] MEDS: HYDROcodone/APAP 5-325MG 1 EACH TAB PO PRN ×3 (00:34→20:02)
[2023-09-09] MEDS: HEPARIN SODIUM,PORCINE 5,000 UNIT/ML 1 ML VIAL SQ SCH ×2 (00:35→12:34)
[2023-09-09] MEDS: MELATONIN 5 MG TABLET PO PRN ×2 (00:35→20:03)
--- NOTE | 2023-09-09 01:28 | PN ---
PROGRESS NOTE DATE OF SERVICE: 09/08/2023 SUBJECTIVE: This is a 78-year-old woman who was admitted with left hip surgery for infection, has "MSSA" consistently growing from the culture. No chest pain, no palpitation. PICC line has been inserted. OBJECTIVE: VITAL SIGNS: Pulse 70, blood pressure 115/69, and respirations 16. CHEST: Clear to auscultation. CARDIOVASCULAR: S1, S2. ABDOMEN: Soft. LEGS: Left leg swelling and pain present. LABORATORY DATA: Reviewed, hemoglobin 7.3. ASSESSMENT: 1. Status post left hip direct arthroplasty and acute left hip periprosthetic infection with failure of outpatient treatment, status post irrigation, debridement, and antibiotic bead replacement. 2. MSSA from the cultures. 3. Wound VAC placement. 4. Anemia, multifactorial, progressing which was present before admission, multifactorial. 5. Gait dysfunction. 6. Severe pain. 7. Rheumatoid arthritis. 8. History of right breast cancer. 9. Raynaud's. 10.History of DJD. 11.Poor social support. RECOMMENDATIONS: Recommended to continue current management, continue symptomatic treatment, otherwise at this time pain management. Continue with empiric antibiotics. I would also recommend iron profile and repeat labs in the morning and if the hemoglobin is progressively declining, I would recommend a unit of transfusion for symptomatic anemia. Otherwise, further debridement and other by Orthopedic surgery. Further recommendations to follow. MMODL / IJN: [id number] / BETO
[2023-09-09] MEDS: PANTOPRAZOLE 40 MG TABLET PO SCH (06:53)
[2023-09-09] MEDS: THIAMINE 100 MG TAB PO SCH ×2 (06:53→17:17)
[2023-09-09] MEDS: MULTIVITAMINS, THERA 1 EACH TAB PO SCH (07:42)
[2023-09-09] MEDS: LACTOBACILLUS ACIDOPHILUS/PECT 1 EACH CAPSULE PO SCH (07:42)
[2023-09-09] MEDS: CYANOCOBALAMIN 500 MCG TAB PO SCH (07:42)
[2023-09-09] MEDS: MAGNESIUM OXIDE 400 MG TAB PO SCH (07:42)
[2023-09-09] MEDS: ZINC SULFATE 220 MG CAP PO SCH (07:43)
[2023-09-09] MEDS: VIT A,C & E-LUTEIN-MINERALS 1 EACH TAB PO SCH (07:43)
[2023-09-09] MEDS: SENNOSIDES 8.6 MG TAB PO SCH ×2 (07:43→20:03)
[2023-09-09] MEDS: NIFEdipine XL 30 MG TAB.ER.24 PO SCH (07:43)
[2023-09-09] MEDS ORDERED: SUCCINYLCHOLINE CHLORIDE 200 MG/10 ML VIAL IV ONE (08:04)
[2023-09-09] MEDS ORDERED: PHENYLEPHRINE-0.9% NACL SYG 1,000 MCG/10 ML SYRINGE ONE (08:04)
[2023-09-09] MEDS ORDERED: fentaNYL (PF) 50 MCG/ML 2 ML AMP ONE (08:04)
[2023-09-09] MEDS ORDERED: NEOSTIGMINE 1 MG/ML 10 ML VIAL ONE (08:04)
[2023-09-09] MEDS ORDERED: DEXAMETHASONE SOD PHOSPHATE 4 MG/ML 1 ML VIAL ONE (08:04)
[2023-09-09] MEDS ORDERED: ROCURONIUM 10 MG/ML (5 ML VIAL) IV ONE (08:04)
[2023-09-09] MEDS ORDERED: LIDOCAINE 1% INJ 10MG/ML (20 ML MDV) ONE (08:04)
[2023-09-09] MEDS ORDERED: LACTATED RINGERS 1,000 ML IV ONE ×2 (08:04→09:26)
[2023-09-09] MEDS ORDERED: PROPOFOL 10 MG/ML 20 ML VIAL IV ONE (08:04)
[2023-09-09] MEDS ORDERED: SODIUM CHLORIDE 0.9% 1,000 ML IV ONE (08:04)
[2023-09-09] MEDS ORDERED: GLYCOPYRROLATE 0.2 MG/ML 2 ML VIAL ONE (08:04)
[2023-09-09] MEDS ORDERED: ONDANSETRON 4 MG/2 ML VIAL ONE (08:04)
[2023-09-09] MEDS ORDERED: VANCOMYCIN 1,000 MG VIAL MISCELLANE ONE (09:10)
[2023-09-09] MEDS ORDERED: ceFAZolin 1,000 MG VIAL MISCELLANE ONE (09:11)
[2023-09-09] MEDS ORDERED: EPINEPHrine (PF) 1 MG/ML AMP MISCELLANE ONE (09:14)
[2023-09-09 10:15] LABS: Basophils # (A) 0.04 X 10*3/uL (0.00-0.10); Basophils % (A) 0.5 %; Eosinophils # (A) 0.36 X 10*3/uL (0.04-0.35); Eosinophils % (A) 4.6 %; HCT 23.4 % (37.2-46.3); HGB 7.2 g/dL (12.0-15.0); Lymphocytes # (A) 1.09 X 10*3/uL (0.90-5.00); Lymphocytes % (A) 13.8 %; MCH 28.7 pg (27.0-32.0); MCHC 30.8 g/dL (32.0-37.0); MCV 93.2 FL (80.0-97.0); Mean Platelet Volume 8.6 FL (9.5-12.2); Monocytes # (A) 0.56 X 10*3/uL (0.20-1.00); Monocytes % (A) 7.1 %; NRBC Per 100 WBC 0 X 10*3/uL (0.00-0.01); Neutrophils # (A) 5.79 X 10*3/uL (1.80-7.70); Neutrophils % (A) 73.1 %; Platelet Count 396 X 10*3/uL (140-440); RBC 2.51 X 10*6/uL (4.10-5.20); RDW 15.4 % (11.5-14.5); WBC 7.91 X 10*3/uL (4.50-10.00)
[2023-09-09 10:19] LABS: Blood Urea Nitrogen 10.1 mg/dL (9.0-27.0); Calcium 7.9 mg/dL (8.7-10.3); Carbon Dioxide 25.7 mmol/L (21.6-31.8); Chloride 101 mmol/L (96-109); Glucose 96 mg/dL (70-110); Potassium 4.2 mmol/L (3.5-5.5); Sodium 134 mmol/L (135-145)
--- NOTE | 2023-09-09 10:50 | P.OP ---
Date of Procedure: 09/09/23 Preoperative Diagnosis: 1. 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 Rheumatoid arthritis 3. History of breast cancer Postoperative Diagnosis: Same Procedure(s) Performed: 1. Left hip revision of femoral component (cement in the cement revision of the femoral component) 2. Left total hip replacement head and liner exchange for treatment of periprosthetic joint infection 3. Irrigation and excisional debridement of infected left total hip replacement, acute (an excisional debridement using a scalpel of all nonviable skin, subcutaneous tissue, muscle, fascia down to the level of the joint was performed) 4. Application of negative pressure incisional wound VAC, left hip Implants: [place] accolade C size #4 standard offset femoral stem, and DM liner, 38 mm outer diameter dual mobility head with a 22.2+0 inner diameter dual mobility head Anesthesia: ISRA[place] Surgeon: Kevin Moser Welder Gas #1: Mary Cali Estimated Blood Loss (ml): 200 IV fluids (ml): 800 Urine output (ml): 400 Pathology: other (Multiple cultures) Condition: stable Disposition: PACU Indications for Procedure: The patient is a very pleasant 78-year-old female with a medical history significant for rheumatoid arthritis and a remote history of breast cancer who underwent a left direct anterior total hip replacement on 07/28/2023. Initially she did well but had issues with swelling in her leg. She had an ultrasound which was negative and was clinically improving. The incision was initially well-healed with no drainage or erythema. A week and a half ago she had an increase in hip pain which she attributed to putting away Trav decorations. She presented to my office and was found to have a large subcutaneous abscess and diffuse erythema. A computed tomography scan ordered of the leg to determine if there is any evidence of multifocal infection and revealed an abscess localized to the hip. The subcutaneous abscess was also aspirated in the office and gross purulence was obtained and sent for culture. I long discussion with the patient and her on treatment options. We discussed treatment periprosthetic joint infection at length. We discussed a DAIR procedure, 1 stage revision, a "1.5" stage revision and a 2-stage revision with an antibiotic spacer. The patient presented 4 weeks after surgery and her cultures were growing MSSA we both agreed that an attempt at a DAIR C Arsalan be in her best interest given her age and medical history. Both the patient and her understand the limitations of this particularly continued infection and need for further treatment. Recommendation was to utilize the [facility] protocol which involves a double debridement. She underwent her first stage washout with placement of antibiotic impregnated cement beads 4 days ago. I met with the patient yesterday and we discussed return to the operating room today for removal of the antibiotic impregnated cement beads, extensive debridement, and likely revision of the femoral component which loosened at her last procedure when attempting to disengage the femoral head from the Randall taper. The patient and her understand the potential risks particularly continued infection. They have realistic expectations. Operative Findings: There is a small hematoma around the joint but no sadi purulence. Upon dislocating and exposing small femur the femoral stem did appear to be slightly loose from the cement mantle so I elected to perform a cement and cement revision as the cement mantle appeared intact and there did not appear to be any fractures. Description of Procedure: The patient was identified in preoperative holding and the correct left leg was marked by initials. I reviewed the consent form with the patient and all of her questions were answered. The patient was then brought back to the operating room. While on her hospital bed a general anesthetic was administered. She was also given preoperative antibiotics. Her incisional wound VAC was removed. Web roll and boots were applied to both legs. The patient was then carefully transferred onto the [place] table. Her arms were well-padded and a peroneal post was placed. Nonsterile drapes were applied isolating the left hip. A presurgical scrub brush was used to cleanse the skin with chlorhexidine. The left leg was then prepped and draped in the standard sterile fashion. Prior to starting surgery timeout was performed identifying the correct patient, operative extremity, and procedure. I began by making an incision over her prior scar. All previous suture material was removed. A moderate sized hematoma was encountered but there was no sadi purulence. Dissection was then carried easily down to the hip joint. The antibiotic cement beads were removed and passed off to the back table and I verified that our counts were correct when compared to the amount of beads placed at her last procedure. At this point and excisional debridement was performed followed by irrigation of the wound with 3 L of sterile saline using pulsatile lavage. The proximal femur was then exposed, the hip was dislocated and the leg was dropped using the table. The femoral head was easily disengaged from the Randall taper and the stem appeared loose within the mantle. I was easily able to back the stem out of the cement mantle. At that point I decided to proceed with cement and cement revision of the femoral component. The proximal femur was thoroughly evaluated to make sure that there were no fractures or sign of fractures the cement mantle. Retractors were removed and the leg was brought up. I removed the liner from the acetabulum. Cultures were taken behind the acetabulum. The femoral component appeared to be well fixed so I elected to not revise the cup. At this point a second look excisional debridement was performed of all nonviable tissue. The wound was then soaked for 3 minutes and a dilute Betadine rinse. 3 L of sterile saline was run through the wound using pulsatile lavage. The wound was then soaked for 3 minutes using a dilute chlorhexidine rinse. 3 L of sterile saline was run through the wound using pulsatile lavage. The wound was then soaked for 3 minutes using a dilute peroxide solution. 3 L of sterile saline was run through the wound using pulsatile lavage. At this point all assistance and myself changed gloves. All instruments were soaked in peroxide. The wound was reprepped with chlorhexidine. Implants were dispensed. A new liner was gently impacted into the socket. The proximal femur was then exposed, I verified traction was off and the leg was dropped. Retractors were placed gaining excel lent exposure of the proximal femur. The proximal femur was irrigated. 2 bags of antibiotic impregnated cement was then injected in a retrograde fashion into the pre-existing cement mantle and a stem 1 size smaller than the stem removed as gently placed into the cement mantle and held until the cement had fully set. Cement was placed over the shoulder of the implant to help prevent inadvertent loosening. The wound, femoral component, and acetabulum were again irrigated and found to be free of debris. The final dual mobility head was gently tapped onto the trunnion to engage the Randall taper. The hip was then carefully reduced and stability was checked with external rotation to degrees. Final fluoroscopic imaging was taken. The wound was then irrigated a final time with 1 L of steril e saline. 2 g of vancomycin and 1 g of Cefazolin powder was placed deep within the wound. The wound appeared dry so I elected not to place a deep drain given the patient's drainage from her drain site at her previous hip replacement. The wound was then closed in layers using all monofilament suture. An excellent watertight closure was achieved and the skin incision was reinforced with 2-0 nylon horizontal mattress sutures. An incisional wound VAC was then applied, hooked up to suction and found to have excellent seal. The drapes were taken down and the patient was transferred off of the OR table onto a gurney. Her boots were removed and her leg lengths felt acceptable. The patient was then brought back to the recovery room having tolerated the procedure well. Mary Cali PAC acquired as a skilled temporary administrative assistant due to the complexity of the surgery for patient positioning, exposure, removal of implants, placement of implants, closure of wound, and application of dressing. Plan: The patient can weight-bear as tolerated on her left leg. Leave incisional wound VAC on. Will be changed at her 2 week postoperative appointment at which place I will place a Prevena if needed. I'll defer to infectious disease for antibiotic. Will follow cultures taken at today's procedure. I have no plans for further surgery at this time in hopes that by performing a double debridement and essentially a 1 stage revision that we have adequately treated her acute periprosthetic joint infection. On IV antibiotics via her PICC line she will need long-term oral suppressive antibiotics
[2023-09-09] MEDS ORDERED: HYDROmorphone 0.5 MG/0.5 ML SYRINGE IVP ONE (11:04)
[2023-09-09] MEDS ORDERED: HYDROmorphone 0.5 MG/0.5 ML SYRINGE IVP PRN ×3 (12:21)
[2023-09-09] MEDS ORDERED: NALOXONE 0.4 MG/ML 1 ML VIAL IV PRN (12:21)
--- NOTE | 2023-09-09 12:31 | FL ---
Fluoroscopy INDICATION: Pain FINDINGS: Fluoroscopy time: 5 seconds. Total dose area product (DAP) in uGy*m?, mGy*cm? (or similar): 0.5448 Images obtained: 0. IMPRESSION: 1. Documentation of fluoroscopy.
--- NOTE | 2023-09-09 12:34 | XR ---
Fluoroscopy INDICATION: Pain FINDINGS: Fluoroscopy time: 5 seconds. Total dose area product (DAP) in uGy*m?, mGy*cm? (or similar): 0.5448 Images obtained: 4. IMPRESSION: 1. Documentation of fluoroscopy.
[2023-09-09] MEDS: FOLIC ACID 1 MG TAB PO SCH (13:27)
--- NOTE | 2023-09-09 13:41 | PN ---
PROGRESS NOTE DATE OF SERVICE: 09/09/2023 SUBJECTIVE: This 78-year-old woman was admitted with left hip possible infection with MSSA, had second surgery by Dr. Moser today. The patient underwent left hip revision of the femoral component and irrigation and debridement infected left hip replacement. The patient is on broad-spectrum IV antibiotics. Blood cultures are negative. OBJECTIVE: VITAL SIGNS: Pulse is 65, blood pressure 100/60, and respirations 16. CHEST: Clear to auscultation. CARDIOVASCULAR: S1, S2. ABDOMEN: Soft. NERVOUS SYSTEM: Nonfocal. LABORATORY DATA: Hemoglobin 7.2. Otherwise, sodium 134, iron levels are low. ASSESSMENT: 1. Status post left hip direct arthroplasty, acute left hip periprosthetic infection with failure of outpatient, status post revision as well as irrigation and debridement and antibiotic bead placement. 2. MSSA from the cultures. 3. Wound VAC placement. 4. Anemia, multifactorial, possibly iron deficiency, progressing, which was present before admission, multifactorial. 5. Gait dysfunction. 6. Severe pain. 7. Rheumatoid arthritis. 8. History of right breast cancer. 9. Raynaud's. RECOMMENDATIONS: Recommended to continue current management and continue symptomatic treatment. Otherwise at this time, I would recommend IV iron. Monitor hemoglobin closely. Closely follow with Orthopedic surgery. Further recommendations to follow. MMODL / IJN: [id number] /
[2023-09-09] MEDS: SODIUM CHLORIDE 0.9% 1,000 ML IV SCH (14:06)
[2023-09-09] MEDS: SODIUM FERRIC GLUCONAT-SUCROSE 125 MG in SODIUM CHLORIDE 0.9% 100 ML IVPB SCH (14:51)
[2023-09-09] MEDS: LACTATED RINGERS 1,000 ML IV SCH (14:53)
[2023-09-09] MEDS: SENNOSIDES-DOCUSATE SODIUM 1 EACH TAB PO SCH (20:03)
[2023-09-09] MEDS: ASPIRIN 81 MG PO SCH (20:03)
[2023-09-10] MEDS: HEPARIN SODIUM,PORCINE 5,000 UNIT/ML 1 ML VIAL SQ SCH ×3 (00:08→23:32)
[2023-09-10] MEDS: SODIUM CHLORIDE 0.9% 1,000 ML IV SCH ×2 (02:09→13:12)
[2023-09-10] MEDS: LACTATED RINGERS 1,000 ML IV SCH ×4 (02:09→21:25)
[2023-09-10] MEDS: HYDROcodone/APAP 5-325MG 1 EACH TAB PO PRN ×2 (02:48→09:29)
[2023-09-10] MEDS: PANTOPRAZOLE 40 MG TABLET PO SCH (06:39)
[2023-09-10] MEDS: THIAMINE 100 MG TAB PO SCH ×2 (06:39→18:02)
[2023-09-10] MEDS: LACTOBACILLUS ACIDOPHILUS/PECT 1 EACH CAPSULE PO SCH (08:04)
[2023-09-10] MEDS: MULTIVITAMINS, THERA 1 EACH TAB PO SCH (08:04)
[2023-09-10] MEDS: NIFEdipine XL 30 MG TAB.ER.24 PO SCH (08:04)
[2023-09-10] MEDS: VIT A,C & E-LUTEIN-MINERALS 1 EACH TAB PO SCH (08:04)
[2023-09-10] MEDS: ZINC SULFATE 220 MG CAP PO SCH (08:04)
[2023-09-10] MEDS: SENNOSIDES 8.6 MG TAB PO SCH ×2 (08:04→21:16)
[2023-09-10] MEDS: ASPIRIN 81 MG PO SCH ×2 (08:04→21:16)
[2023-09-10] MEDS: MAGNESIUM OXIDE 400 MG TAB PO SCH (08:05)
[2023-09-10] MEDS: SODIUM FERRIC GLUCONAT-SUCROSE 125 MG in SODIUM CHLORIDE 0.9% 100 ML IVPB SCH (08:05)
[2023-09-10] MEDS: CYANOCOBALAMIN 500 MCG TAB PO SCH (08:05)
[2023-09-10] MEDS: MAGNESIUM HYDROXIDE 2,400 MG/30 ML CUP PO PRN (09:25)
--- NOTE | 2023-09-10 09:52 | P.PN ---
Subjective Progress Note Date: 09/10/23 Principal diagnosis: Infection left hip. Status post total left hip arthroplasty. Status post I&D left hip with surgeon of antibiotic beads. Status post second irrigation and debridement with revision total left hip arthroplasty J 78-year-old female who is status post Left hip revision of femoral component (cement in the cement revision of the femoral component), Left total hip replacement head and liner exchange for treatment of periprosthetic joint infection, Irrigation and excisional debridement of infected left total hip replacement and Application of negative pressure incisional wound VAC, left hip. The patient is stable from an orthopedic standpoint on postoperative day #1. She states that she is not feeling well but feels that she just needs to get out of bed. She reports no nausea, vomiting or diarrhea. She reports no fever or chills. Vital signs are stable. Labs are reviewed. Hemoglobin is essentially stable at 7.2. Cultures taken intraoperatively are showing no organisms seen on Gram stain. Initial cultures grew methicillin sensitive staph aureus. Objective - Vital Signs Vital signs: Vital Signs Temp 98.2 F 09/10/23 07:48 Pulse 80 09/10/23 07:48 Resp 21 09/10/23 07:48 BP 96/63 09/10/23 07:48 Pulse Ox 94 L 09/10/23 07:48 FiO2 Intake & Output 09/09/23 09/10/23 09/10/23 18:59 06:59 18:59 Intake Total 1250 Output Total 603 500 Balance 647 -500 Weight 58.967 kg Intake: IV 1250 Output: Urine 403 500 Estimated Blood Loss 200 Other: Voiding Method Indwelling Catheter # Voids 1 - Exam Is a pleasant 78-year-old female in no acute distress. She is alert and oriented 3. Exam of the left leg reveals that her wound VAC is in place and appears to be functioning well. There is no erythema and minimal soft tissue swelling to the hip and thigh. She has full foot and ankle motion without difficulty or pain. Neurovascular status to the lower extremity is intact. - Labs CBC & Chem 7: 09/09/23 05:50 09/09/23 05:50 Labs: Abnormal Lab Results - Last 24 Hours (Table) 09/09/23 09/09/23 Range/Units 05:50 05:50 RBC 2.51 L (4.10-5.20) X 10*6/uL Hgb 7.2 L (12.0-15.0) g/dL Hct 23.4 L (37.2-46.3) % MCHC 30.8 L (32.0-37.0) g/dL RDW 15.4 H (11.5-14.5) % MPV 8.6 L (9.5-12.2) FL Immature Gran # 0.07 H (0.00-0.04) X 10*3/uL Eosinophils # 0.36 H (0.04-0.35) X 10*3/uL Sodium 134 L (135-145) mmol/L Creatinine 0.5 L (0.6-1.5) mg/dL BUN/Creatinine Ratio 20.20 H (12.00-20.00) Ratio Calcium 7.9 L (8.7-10.3) mg/dL Microbiology - Last 24 Hours (Table) 09/09/23 09:30 Gram Stain - Preliminary Hip - Left Wound Culture - Preliminary 09/09/23 09:30 Gram Stain - Preliminary Hip - Left 09/09/23 09:30 Gram Stain - Preliminary Hip - Left 09/09/23 09:30 Gram Stain - Preliminary Hip - Left 09/05/23 17:52 Anaerobic Culture - Final Hip - Left 09/05/23 17:52 Anaerobic Culture - Final Hip - Left 09/04/23 12:30 Blood Culture - Final Blood 09/04/23 12:45 Blood Culture - Final Blood Assessment and Plan (1) Status post revision of total hip Current Visit: Yes Status: Acute Code(s): Z96.649 - PRESENCE OF UNSPECIFIED ARTIFICIAL HIP JOINT SNOMED Code(s): 419143763 (2) Left hip prosthetic joint infection Current Visit: Yes Status: Acute Code(s): T84.52XA - INFECT/INFLM REACTION DUE TO INTERNAL LEFT HIP PROSTH, INIT SNOMED Code(s): 58352765088506770 (3) MSSA (methicillin susceptible Staphylococcus aureus) infection Current Visit: Yes Status: Acute Code(s): A49.01 - METHICILLIN SUSCEP STAPH INFECTION, UNSP SITE SNOMED Code(s): 465772808 Plan: The clinical findings are discussed with the patient. She may begin to ambulate today with nursing assistance and with her walker. I've asked nursing to at the very least get her up in a chair today. We will continue care and plan discharged to inpatient rehab when cleared medically and placement is arranged. Antibiotics per infectious disease.
[2023-09-10 10:09] LABS: BUN/Creat Ratio 23.67 Ratio (12.00-20.00); Blood Urea Nitrogen 14.2 mg/dL (9.0-27.0); Glucose 97 mg/dL (70-110)
[2023-09-10 10:10] LABS: Calcium 8.3 mg/dL (8.7-10.3); Carbon Dioxide 24.8 mmol/L (21.6-31.8); Chloride 102 mmol/L (96-109); Potassium 4.4 mmol/L (3.5-5.5); Sodium 135 mmol/L (135-145)
[2023-09-10 10:39] LABS: Basophils # (A) 0.03 X 10*3/uL (0.00-0.10); Basophils % (A) 0.3 %; Eosinophils # (A) 0.11 X 10*3/uL (0.04-0.35); Eosinophils % (A) 1.1 %; HCT 20.3 % (37.2-46.3); HGB 6.3 g/dL (12.0-15.0); Lymphocytes # (A) 1.25 X 10*3/uL (0.90-5.00); Lymphocytes % (A) 12.3 %; MCH 28.8 pg (27.0-32.0); MCV 92.7 FL (80.0-97.0); Mean Platelet Volume 8.7 FL (9.5-12.2); Monocytes % (A) 7.9 %; NRBC Per 100 WBC 0 X 10*3/uL (0.00-0.01); Neutrophils # (A) 7.89 X 10*3/uL (1.80-7.70); Neutrophils % (A) 77.4 %; Platelet Count 388 X 10*3/uL (140-440); RBC 2.19 X 10*6/uL (4.10-5.20); RBC Morphology Normal (Normal); RDW 15.9 % (11.5-14.5); WBC 10.18 X 10*3/uL (4.50-10.00)
[2023-09-10] MEDS: FOLIC ACID 1 MG TAB PO SCH (12:39)
[2023-09-10] MEDS ORDERED: HYDROcodone/APAP 7.5-325MG 1 EACH TAB PO PRN ×2 (12:50)
[2023-09-10] MEDS ORDERED: hydrOXYzine pamoate 25 MG CAP PO PRN (12:52)
--- NOTE | 2023-09-10 17:01 | P.PN ---
Subjective Progress Note Date: 09/09/23 Principal diagnosis: Reason for follow-up is left hip abscess MSSA Patient is a 78-year-old female with a past medical history significant for rheumatoid arthritis history of right breast cancer this patient who is status post left hip replacement on 07/28/2023, did have swelling to the left lower extremity and apparently the patient did have large subcutaneous abscess that was drained in outpatient culture positive for MSSA patient subsequently has been admitted to the hospital for washout of the left hip and antibiotic bead placement. Patient is status post left hip irrigation and debridement an excisional debridement of all nonviable skin, subcutaneous tissu e, and muscle down to the level of the hip joint was performed using a scalpel and Application of negative pressure incisional wound VAC, left hip on 09/05/2023, the patient is status post repeat washout on 09/09/2023 On today's evaluation that is 09/09/2023 patient continues to be afebrile, patient is breathing comfortably on 3 L nasal cannula oxygen, the patient denies chest pain shortness breath and no cough, the patient denies nausea vomiting abdominal pain denies any worsening pain to the left hip area Patient did have a white count of 7.9, creatinine 0.5, CRP 6.20 and sed rate of 41 left hip culture with MSSA blood culture negative Objective - Vital Signs Vital signs: Vital Signs Temp 98.5 F 09/09/23 10:30 Pulse 61 09/09/23 11:30 Resp 16 09/09/23 11:30 BP 109/63 09/09/23 11:30 Pulse Ox 100 09/09/23 11:30 FiO2 Intake & Output 09/08/23 09/09/23 09/09/23 18:59 06:59 18:59 Intake Total 1250 Output Total 100 600 Balance -100 650 Weight 58.967 kg Intake: IV 1250 Output: Drainage 100 Left Hip 100 Urine 400 Estimated Blood Loss 200 Other: Voiding Method Bedside Commode # Voids 4 4 - Exam GENERAL DESCRIPTION: An elderly female lying in bed in no distress RESPIRATORY SYSTEM: Unlabored breathing , decreased breath sounds at bases HEART: S1 S2 regular rate and rhythm , ABDOMEN: Soft , no tenderness EXTREMITIES: No edema feet - Labs CBC & Chem 7: 09/09/23 05:50 09/09/23 05:50 Labs: Abnormal Lab Results - Last 24 Hours (Table) 09/08/23 09/09/23 09/09/23 Range/Units 15:03 05:50 05:50 RBC 2.51 L (4.10-5.20) X 10*6/uL Hgb 7.2 L (12.0-15.0) g/dL Hct 23.4 L (37.2-46.3) % MCHC 30.8 L (32.0-37.0) g/dL RDW 15.4 H (11.5-14.5) % MPV 8.6 L (9.5-12.2) FL Immature Gran # 0.07 H (0.00-0.04) X 10*3/uL Eosinophils # 0.36 H (0.04-0.35) X 10*3/uL Sodium 134 L (135-145) mmol/L Creatinine 0.5 L (0.6-1.5) mg/dL BUN/Creatinine Ratio 20.20 H (12.00-20.00) Ratio Calcium 7.9 L (8.7-10.3) mg/dL Iron 19 L (50-170) UG/DL TIBC 221 L (228-460) UG/DL % Saturation 8.60 L (12.00-45.00) Transferrin 158.0 L (204.0-354.0) mg/dL Assessment and Plan (1) MSSA (methicillin susceptible Staphylococcus aureus) infection Current Visit: Yes Status: Acute Code(s): A49.01 - METHICILLIN SUSCEP STAPH INFECTION, UNSP SITE SNOMED Code(s): 841989439 (2) Left hip prosthetic joint infection Current Visit: Yes Status: Acute Code(s): T84.52XA - INFECT/INFLM REACTION DUE TO INTERNAL LEFT HIP PROSTH, INIT SNOMED Code(s): 62720974008321608 Plan: 1patient presented to hospital with a left hip pain swelling redness did have some drainage with recent aspirate in the outpatient setting coming back positive with MSSA very suspicious for underlying left hip septic arthritis 2blood cultures are so far negative local culture positive for MSSA 3patient is status post Left hip irrigation and excisional debridement of all nonviable skin, subcutaneous tissue, and muscle down to the level of the hip joint was performed using a scalpel and Application of negative pressure incisional wound VAC completed on 09/05/2023 with repeat procedure on 09/09/2023 4patient did get a PICC line and is currently covered with cefazolin to 2 g every 8 hours, plan is for 6 weeks of IV antibiotic therapy discussed with the surgeon Dictation was produced using [employer] dictation software. please excuse any grammatical, word or spelling errors. Time with Patient: Less than 30
--- NOTE | 2023-09-10 17:02 | P.PN ---
Subjective Progress Note Date: 09/10/23 Principal diagnosis: Reason for follow-up is left hip abscess MSSA Patient is a 78-year-old female with a past medical history significant for rheumatoid arthritis history of right breast cancer this patient who is status post left hip replacement on 07/28/2023, did have swelling to the left lower extremity and apparently the patient did have large subcutaneous abscess that was drained in outpatient culture positive for MSSA patient subsequently has been admitted to the hospital for washout of the left hip and antibiotic bead placement. Patient is status post left hip irrigation and debridement an excisional debridement of all nonviable skin, subcutaneous tissu e, and muscle down to the level of the hip joint was performed using a scalpel and Application of negative pressure incisional wound VAC, left hip on 09/05/2023, the patient is status post repeat washout on 09/09/2023 On today's evaluation that is 09/10/2023, the patient remains to be afebrile, the patient is breathing comfortably on room air and the patient denies any shortness of breath, the patient denies chest pain or any cough , patient denies any nausea/vomiting abdominal pain or diarrhea, the patient pain to the left leg is currently controlled Patient did have a white count of 10.18 creatinine 0.6, CRP 6.20 and sed rate of 41 left hip culture with MSSA blood culture negative Objective - Vital Signs Vital signs: Vital Signs Temp 98.8 F 09/10/23 16:08 Pulse 71 09/10/23 16:08 Resp 18 09/10/23 16:08 BP 96/60 09/10/23 16:08 Pulse Ox 95 09/10/23 16:08 FiO2 Intake & Output 09/09/23 09/10/23 09/10/23 18:59 06:59 18:59 Intake Total 1250 0 Output Total 603 500 Balance 647 -500 0 Weight 58.967 kg Intake: IV 1250 Blood Product 0 Unit 0 Output: Urine 403 500 Estimated Blood Loss 200 Other: Voiding Method Indwelling Catheter # Voids 1 - Exam GENERAL DESCRIPTION: An elderly female lying in bed in no distress RESPIRATORY SYSTEM: Unlabored breathing , decreased breath sounds at bases HEART: S1 S2 regular rate and rhythm , ABDOMEN: Soft , no tenderness EXTREMITIES: No edema feet - Labs CBC & Chem 7: 09/10/23 05:31 09/10/23 05:31 Labs: Abnormal Lab Results - Last 24 Hours (Table) 09/10/23 09/10/23 09/10/23 Range/Units 05:31 05:31 11:51 WBC 10.18 H (4.50-10.00) X 10*3/uL RBC 2.19 L (4.10-5.20) X 10*6/uL Hgb 6.3 A* (12.0-15.0) g/dL Hct 20.3 L (37.2-46.3) % MCHC 31.0 L (32.0-37.0) g/dL RDW 15.9 H (11.5-14.5) % MPV 8.7 L (9.5-12.2) FL Immature Gran # 0.10 H (0.00-0.04) X 10*3/uL Neutrophils # 7.89 H (1.80-7.70) X 10*3/uL BUN/Creatinine Ratio 23.67 H (12.00-20.00) Ratio Calcium 8.3 L (8.7-10.3) mg/dL Crossmatch See Detail Microbiology - Last 24 Hours (Table) 09/09/23 09:30 Gram Stain - Preliminary Hip - Left Wound Culture - Preliminary 09/09/23 09:30 Gram Stain - Preliminary Hip - Left Wound Culture - Preliminary 09/09/23 09:30 Gram Stain - Preliminary Hip - Left Wound Culture - Preliminary 09/09/23 09:30 Gram Stain - Preliminary Hip - Left 09/05/23 17:52 Anaerobic Culture - Final Hip - Left 09/05/23 17:52 Anaerobic Culture - Final Hip - Left 09/04/23 12:30 Blood Culture - Final Blood 09/04/23 12:45 Blood Culture - Final Blood Assessment and Plan (1) MSSA (methicillin susceptible Staphylococcus aureus) infection Current Visit: Yes Status: Acute Code(s): A49.01 - METHICILLIN SUSCEP STAPH INFECTION, UNSP SITE SNOMED Code(s): 716496750 (2) Left hip prosthetic joint infection Current Visit: Yes Status: Acute Code(s): T84.52XA - INFECT/INFLM REACTION DUE TO INTERNAL LEFT HIP PROSTH, INIT SNOMED Code(s): 41495191202362654 Plan: 1patient presented to hospital with a left hip pain swelling redness did have some drainage with recent aspirate in the outpatient setting coming back positive with MSSA very suspicious for underlying left hip septic arthritis 2blood cultures are so far negative local culture positive for MSSA 3patient is status post Left hip irrigation and excisional debridement of all nonviable skin, subcutaneous tissue, and muscle down to the level of the hip joint was performed using a scalpel and Application of negative pressure incisional wound VAC completed on 09/05/2023 with repeat procedure on 09/09/2023 4patient to continue with cefazolin to 2 g every 8 hours, plan is for 6 weeks of IV antibiotic therapy possible discharge to the senior living in the morning if remains to be stable at the bedside questions were answered Dictation was produced using [employer] dictation software. please excuse any grammatical, word or spelling errors. Time with Patient: Less than 30
[2023-09-10] MEDS: MELATONIN 5 MG TABLET PO PRN (21:16)
[2023-09-10] MEDS: SENNOSIDES-DOCUSATE SODIUM 1 EACH TAB PO SCH (21:16)
[2023-09-10] MEDS ORDERED: TEMAZEPAM 15 MG CAP PO PRN (22:00)
--- NOTE | 2023-09-11 05:40 | PN ---
PROGRESS NOTE DATE OF SERVICE: 09/10/2023 SUBJECTIVE: This is a 78-year-old woman, who was admitted after left hip arthroplasty, had periprosthetic infection with MSSA. No chest pain. No palpitation. She is on IV antibiotics. No fever. No cough. The patient has progressive anemia, hemoglobin is 6.3 at this time. The picture is similar to iron deficiency anemia. The exact etiology is unknown at this time OBJECTIVE: VITAL SIGNS: Pulse 80, blood pressure is 96/60, respirations 21. CHEST: Clear to auscultation. CARDIOVASCULAR: S1, S2. ABDOMEN: Soft. EXTREMITIES: Left leg, status post surgery. LABORATORY DATA: Hemoglobin 6.3, white count is 10.8. PAST MEDICAL HISTORY: Reviewed. REVIEW OF SYSTEMS: A 14-point review is negative except as mentioned earlier. CURRENT MEDICATIONS: Reviewed. ASSESSMENT: 1. Status post left hip direct arthroplasty and acute left hip periprosthetic infection with failure of outpatient treatment, status post revision as well as irrigation and debridement and antibiotic bead placement. 2. Methicillin-susceptible Staphylococcus aureus from the cultures. 3. Wound VAC placement. 4. Anemia multifactorial, possibly iron deficiency. The exact etiology unknown, possibly multifactorial. The hemoglobin is steadily dropping. 5. Symptomatic anemia. 6. Gait dysfunction. 7. Severe pain. 8. Rheumatoid arthritis. 9. History of right breast cancer. 10.Raynaud phenomenon. RECOMMENDATIONS: Recommend to continue current medications, continue symptomatic treatment. Otherwise, 1 unit of transfusion with Lasix. Repeat labs tomorrow. Continue the current medications, otherwise IV iron also has been recommended. Prognosis guarded. Further recommendations to follow. MMODL / IJN: [id number] /
[2023-09-11] MEDS: THIAMINE 100 MG TAB PO SCH ×2 (06:50→17:15)
[2023-09-11] MEDS: PANTOPRAZOLE 40 MG TABLET PO SCH (06:50)
--- NOTE | 2023-09-11 07:49 | P.PN ---
Subjective Progress Note Date: 09/11/23 Patient is doing okay this morning. She has some discomfort in her left hip. She was transfused 1 unit yesterday. She denies chest pain or shortness of breath. Objective - Vital Signs Vital signs: Vital Signs Temp 98.7 F 09/11/23 01:00 Pulse 80 09/11/23 01:00 Resp 19 09/11/23 01:00 BP 110/71 09/11/23 01:00 Pulse Ox 95 09/11/23 01:00 FiO2 Intake & Output 09/10/23 09/11/23 09/11/23 18:59 06:59 18:59 Intake Total 310 Balance 310 Intake: Blood Product 310 Rc Irr As1 Unit 310 [id number] Other: # Voids 4 3 # Bowel Movements 1 - Exam The patient is resting comfortably in her bed. She is alert and able to answer questions. On inspection of the left leg there is no intact incisional wound VAC over the anterior aspect of the left hip. There is mild to moderate swelling throughout the leg. There is no erythema or warmth. She can actively plantar flex and dorsiflex her ankle and her toes. - Labs CBC & Chem 7: 09/10/23 05:31 09/10/23 05:31 Labs: Abnormal Lab Results - Last 24 Hours (Table) 09/10/23 09/10/23 09/10/23 Range/Units 05:31 05:31 11:51 WBC 10.18 H (4.50-10.00) X 10*3/uL RBC 2.19 L (4.10-5.20) X 10*6/uL Hgb 6.3 A* (12.0-15.0) g/dL Hct 20.3 L (37.2-46.3) % MCHC 31.0 L (32.0-37.0) g/dL RDW 15.9 H (11.5-14.5) % MPV 8.7 L (9.5-12.2) FL Immature Gran # 0.10 H (0.00-0.04) X 10*3/uL Neutrophils # 7.89 H (1.80-7.70) X 10*3/uL BUN/Creatinine Ratio 23.67 H (12.00-20.00) Ratio Calcium 8.3 L (8.7-10.3) mg/dL Crossmatch See Detail Microbiology - Last 24 Hours (Table) 09/09/23 09:30 Gram Stain - Preliminary Hip - Left Wound Culture - Preliminary 09/09/23 09:30 Gram Stain - Preliminary Hip - Left Wound Culture - Preliminary 09/09/23 09:30 Gram Stain - Preliminary Hip - Left Wound Culture - Preliminary 09/09/23 09:30 Gram Stain - Preliminary Hip - Left Assessment and Plan Assessment: Status post double debridement and femoral revision for acute periprosthetic joint infection, left total hip Plan: Overall the patient is doing well. Continue IV antibiotics. Leave incisional wound VAC in place, DO NOT REMOVE - to be removed in the office at HER-2 week visit and then return to the hospital. Discharge planning is in process.
[2023-09-11 08:00] VITALS: BMI 20.9
[2023-09-11] MEDS: ASPIRIN 81 MG PO SCH ×2 (08:50→21:45)
[2023-09-11] MEDS: SENNOSIDES 8.6 MG TAB PO SCH ×2 (08:50→21:45)
[2023-09-11] MEDS: LACTOBACILLUS ACIDOPHILUS/PECT 1 EACH CAPSULE PO SCH (08:50)
[2023-09-11] MEDS: CYANOCOBALAMIN 500 MCG TAB PO SCH (08:50)
[2023-09-11] MEDS: MAGNESIUM OXIDE 400 MG TAB PO SCH (08:50)
[2023-09-11] MEDS: ZINC SULFATE 220 MG CAP PO SCH (08:50)
[2023-09-11] MEDS: LACTATED RINGERS 1,000 ML IV SCH (08:50)
[2023-09-11] MEDS: MULTIVITAMINS, THERA 1 EACH TAB PO SCH (08:50)
[2023-09-11] MEDS: NIFEdipine XL 30 MG TAB.ER.24 PO SCH (08:50)
[2023-09-11] MEDS: VIT A,C & E-LUTEIN-MINERALS 1 EACH TAB PO SCH (08:50)
[2023-09-11] MEDS: SODIUM FERRIC GLUCONAT-SUCROSE 125 MG in SODIUM CHLORIDE 0.9% 100 ML IVPB SCH (08:50)
[2023-09-11 08:53] LABS: Calcium 8.3 mg/dL (8.7-10.3); Carbon Dioxide 25.7 mmol/L (21.6-31.8); Chloride 102 mmol/L (96-109); Glucose 95 mg/dL (70-110); Potassium 4.4 mmol/L (3.5-5.5); Sodium 136 mmol/L (135-145)
[2023-09-11 09:23] LABS: Basophils # (A) 0.04 X 10*3/uL (0.00-0.10); Basophils % (A) 0.5 %; Eosinophils # (A) 0.25 X 10*3/uL (0.04-0.35); Eosinophils % (A) 2.9 %; HCT 22.8 % (37.2-46.3); HGB 7.2 g/dL (12.0-15.0); Lymphocytes # (A) 1.04 X 10*3/uL (0.90-5.00); MCH 29.3 pg (27.0-32.0); MCHC 31.6 g/dL (32.0-37.0); MCV 92.7 FL (80.0-97.0); Mean Platelet Volume 8.9 FL (9.5-12.2); Monocytes # (A) 0.74 X 10*3/uL (0.20-1.00); Monocytes % (A) 8.6 %; NRBC Per 100 WBC 0 X 10*3/uL (0.00-0.01); Neutrophils # (A) 6.52 X 10*3/uL (1.80-7.70); Neutrophils % (A) 75.4 %; Platelet Count 407 X 10*3/uL (140-440); RBC 2.46 X 10*6/uL (4.10-5.20); RDW 16.9 % (11.5-14.5); WBC 8.64 X 10*3/uL (4.50-10.00)
[2023-09-11] MEDS: FOLIC ACID 1 MG TAB PO SCH (11:27)
[2023-09-11] MEDS: HEPARIN SODIUM,PORCINE 5,000 UNIT/ML 1 ML VIAL SQ SCH (11:27)
--- NOTE | 2023-09-11 13:19 | PN ---
PROGRESS NOTE DATE OF SERVICE: 09/11/2023 SUBJECTIVE: This is a 78-year-old woman who was admitted after hip arthroplasty is guarded repeat surgery also. The cultures are showing MSSA so far. ECF rehab is being the code. OBJECTIVE: VITAL SIGNS: Pulse is 80, blood pressure 110/75, and respirations 19. CHEST: Clear to auscultation. ABDOMEN: Soft. LEGS: Status post left hip arthroplasty. LABORATORY DATA: Hemoglobin 7.2. ASSESSMENT: 1. Status post left hip direct arthroplasty with acute left hip periprosthetic infection with failure of outpatient treatment, status post revision as well as irrigation debridement of antibiotic bead placement. 2. MSSA from the cultures. 3. Wound VAC placed. 4. Anemia, multifactorial possibly iron deficiency. Exact etiology unknown, possibly multifactorial. 5. Symptomatic anemia, status post transfusion. 6. Gait dysfunction, severe pain. 7. Arthritis. 8. History of right breast cancer. 9. History of Raynaud's. RECOMMENDATIONS: Recommended to continue current management and treatment, otherwise I would continue to monitor and repeat labs, continue the antibiotics. Possible ECF rehab. Further recommendations to follow. MMODL / IJN: [id number] /
[2023-09-11] MEDS: HYDROcodone/APAP 7.5-325MG 1 EACH TAB PO PRN (15:13)
[2023-09-11] MEDS: ALPRAZolam 0.25 MG TAB PO SCH (21:45)
[2023-09-11] MEDS: SENNOSIDES-DOCUSATE SODIUM 1 EACH TAB PO SCH (21:46)
[2023-09-12] MEDS: LACTATED RINGERS 1,000 ML IV SCH ×3 (00:35→21:02)
[2023-09-12] MEDS: HEPARIN SODIUM,PORCINE 5,000 UNIT/ML 1 ML VIAL SQ SCH ×2 (00:35→13:58)
[2023-09-12] MEDS: HYDROcodone/APAP 7.5-325MG 1 EACH TAB PO PRN ×2 (02:08→10:13)
[2023-09-12] MEDS: MELATONIN 5 MG TABLET PO PRN ×2 (02:14→21:02)
[2023-09-12] MEDS: THIAMINE 100 MG TAB PO SCH ×2 (06:03→17:35)
[2023-09-12] MEDS: PANTOPRAZOLE 40 MG TABLET PO SCH (06:03)
[2023-09-12] MEDS: ASPIRIN 81 MG PO SCH ×2 (10:08→21:02)
[2023-09-12] MEDS: ZINC SULFATE 220 MG CAP PO SCH (10:08)
[2023-09-12] MEDS: CYANOCOBALAMIN 500 MCG TAB PO SCH (10:08)
[2023-09-12] MEDS: MULTIVITAMINS, THERA 1 EACH TAB PO SCH (10:08)
[2023-09-12] MEDS: LACTOBACILLUS ACIDOPHILUS/PECT 1 EACH CAPSULE PO SCH (10:08)
[2023-09-12] MEDS: VIT A,C & E-LUTEIN-MINERALS 1 EACH TAB PO SCH (10:09)
[2023-09-12] MEDS: NIFEdipine XL 30 MG TAB.ER.24 PO SCH (10:09)
[2023-09-12] MEDS: MAGNESIUM OXIDE 400 MG TAB PO SCH (10:09)
[2023-09-12] MEDS: ALPRAZolam 0.25 MG TAB PO SCH ×2 (10:09→21:02)
[2023-09-12] MEDS: SENNOSIDES 8.6 MG TAB PO SCH ×2 (10:09→21:02)
[2023-09-12 11:12] LABS: Basophils # (A) 0.05 X 10*3/uL (0.00-0.10); Basophils % (A) 0.8 %; Eosinophils # (A) 0.29 X 10*3/uL (0.04-0.35); Eosinophils % (A) 4.6 %; HCT 22.8 % (37.2-46.3); HGB 6.9 g/dL (12.0-15.0); Lymphocytes # (A) 1.06 X 10*3/uL (0.90-5.00); Lymphocytes % (A) 16.9 %; MCHC 30.3 g/dL (32.0-37.0); MCV 92.7 FL (80.0-97.0); Mean Platelet Volume 8.7 FL (9.5-12.2); Monocytes # (A) 0.61 X 10*3/uL (0.20-1.00); Monocytes % (A) 9.7 %; NRBC Per 100 WBC 0 X 10*3/uL (0.00-0.01); Neutrophils # (A) 4.24 X 10*3/uL (1.80-7.70); Neutrophils % (A) 67.4 %; Platelet Count 347 X 10*3/uL (140-440); RBC 2.46 X 10*6/uL (4.10-5.20); WBC 6.29 X 10*3/uL (4.50-10.00)
[2023-09-12 11:15] LABS: Blood Urea Nitrogen 9.6 mg/dL (9.0-27.0); Calcium 8.3 mg/dL (8.7-10.3); Carbon Dioxide 26.8 mmol/L (21.6-31.8); Chloride 103 mmol/L (96-109); Glucose 95 mg/dL (70-110); Sodium 138 mmol/L (135-145)
--- NOTE | 2023-09-12 11:31 | P.DS ---
Providers Date of admission: 09/04/23 12:15 Attending physician: Kevin oMser Consults: 09/04/23 12:14 Consult Physician Routine Consulting Provider: Tanesha Kaplan Consult Reason/Comments: infected left hip Do you want consulting provider notified?: Yes 09/04/23 12:15 Consult Physician Routine Consulting Provider: Rosmery Hyman Consult Reason/Comments: medical management Do you want consulting provider notified?: Yes 09/11/23 12:56 Consult Physician Routine Consulting Provider: Lewis Lan Consult Reason/Comments: anemia Do you want consulting provider notified?: Yes Primary care physician: [facility] Course: The patient is a very pleasant 78-year-old female with a medical history significant for rheumatoid arthritis who previously underwent a left total hip replacement a month ago. Her postoperative course was complicated by swelling in her leg and ultimately an acute postoperative hip infection. She was admitted under my care underwent a double debridement with the first I&D last Monday in the second debridement this past Monday. Her cultures have grown MSSA. She has been managed by internal medicine and infectious disease. She has no incisional wound VAC over her hip. Her hemoglobin dropped to 6.2 and required a single unit of packed red blood cells yesterday. She's been doing better with physical therapy. She was ultimately cleared for discharge to rehab pending authorization. Patient Condition at Discharge: Stable Plan - Discharge Summary Discharge Rx Participant: No New Discharge Prescriptions: New Aspirin [Adult Low Dose Aspirin EC] 81 mg PO BID #1 tab Docusate [Colace] 100 mg PO BID #60 capsule HYDROcodone/APAP 7.5-325MG [[place] 7.5-325] 1 - 2 tab PO Q6HR PRN #32 tab PRN Reason: Pain Omeprazole 40 mg PO DAILY #30 tab No Action NIFEdipine XL [Procardia XL] 30 mg PO DAILY Certolizumab Pegol [Cimzia] 400 mg INJ Q28D Zinc Gluconate [Zinc] 50 mg PO DAILY Ubidecarenone [Co Q-10] 100 mg PO BID Magnesium 250 mg PO DAILY L.acidoph,Paracasei, B.lactis [Probiotic] 1 cap PO DAILY Healthy Vision 1 tab PO DAILY Multivitamins, Thera [Multivitamin (formulary)] 1 tab PO DAILY Glucosa Elizabeth 2Kcl/Chondroitin Elizabeth [Glucosamine-Chondroitin Cap] 1 each PO DAILY Cyanocobalamin (Vitamin B-12) [Vitamin B-12] 1,000 mcg PO DAILY Cephalexin [Keflex] 500 mg PO Q6HR Discharge Medication List Certolizumab Pegol [Cimzia] 400 mg INJ Q28D 01/17/18 [History] NIFEdipine XL [Procardia XL] 30 mg PO DAILY 01/17/18 [History] Cyanocobalamin (Vitamin B-12) [Vitamin B-12] 1,000 mcg PO DAILY 07/19/23 [History] Glucosa Elizabeth 2Kcl/Chondroitin Elizabeth [Glucosamine-Chondroitin Cap] 1 each PO DAILY 07/19/23 [History] Healthy Vision 1 tab PO DAILY 07/19/23 [History] L.acidoph,Paracasei, B.lactis [Probiotic] 1 cap PO DAILY 07/19/23 [History] Magnesium 250 mg PO DAILY 07/19/23 [History] Multivitamins, Thera [Multivitamin (formulary)] 1 tab PO DAILY 07/19/23 [History] Ubidecarenone [Co Q-10] 100 mg PO BID 07/19/23 [History] Zinc Gluconate [Zinc] 50 mg PO DAILY 07/19/23 [History] Cephalexin [Keflex] 500 mg PO Q6HR 09/04/23 [History] Aspirin [Adult Low Dose Aspirin EC] 81 mg PO BID #1 tab 09/10/23 [Rx] Docusate [Colace] 100 mg PO BID #60 capsule 09/10/23 [Rx] Omeprazole 40 mg PO DAILY #30 tab 09/10/23 [Rx] HYDROcodone/APAP 7.5-325MG [[place] 7.5-325] 1 - 2 tab PO Q6HR PRN #32 tab 09/11/23 [Rx] Follow up Appointment(s)/Referral(s): Jose Meeks MD [Primary Care Provider] - 1-2 days Kevin Moser MD [Medical Doctor] - 09/21/23 1:35 pm Activity/Diet/Wound Care/Special Instructions: May bear wt as tolerated with walker. Leave wound vac in place - DO NOT REMOVE- will be removed by our office at 2 week post op visit. Discharge Disposition: TRANSFER TO SNF/ECF
--- NOTE | 2023-09-12 13:12 | XR ---
EXAMINATION TYPE: XR abdomen 1V DATE OF EXAM: 09/12/2023 COMPARISON: NONE HISTORY: Pain TECHNIQUE: One view abdominal series FINDINGS: The osseous structures are intact. The bowel gas pattern is nonspecific. Stents of retained fecal de bris throughout the colon. Postsurgical changes left hip and significant arthropathy right hip. There is sclerosis involving the left pubic symphysis which is nonspecific. Degenerative changes of the sp ine. Bilateral consolidation and small effusion. Suspect a small hiatal hernia. Soft tissue calcifica tion adjacent to the left femur. Nonspecific calcification in the right hemipelvis. IMPRESSION: 1. Nonspecific abdomen. Correlate for severe constipation. Fecal impaction in the differential diagn osis. 2. Bilateral lower lobe infiltrate and small pleural effusion.
--- NOTE | 2023-09-12 13:47 | P.CONS ---
History of Present Illness - Reason for Consult Consult date: 09/12/23 Anemia Requesting physician: Rosmery Hyman - Chief Complaint Infection of hip prosthetic - History of Present Illness Patient is a primary care patient of Dr. Meeks with a PMH of rheumatoid arthritis, treated with arava, osteoporosis, peripheral neuropathy, T1c N0 M0 left breast cancer in 2012, treated with surgery, declined adjuvant treatment, and a T2 N1 M0 breast cancer diagnosed in 1994 treated with MRM and adjuvant CAF. She has remained on follow-up without recurrence of her malignancies. She has annual follow-up for routine health screening and lab testing. Patient admitted for treatment of infection of the left hip prosthetic, She has been on antibiotics. Since admission she has become progressively anemic. She is status post 1 unit for hemoglobin of 6.3, increased to 7.2, reasonable increase. Iron studies are low, ferritin was not checked. She denies any bleeding. She is being discharged to rehabilitation. Review of Systems 10 point review of systems is negative except as stated in HPI Past Medical History Past Medical History: Cancer, Osteoarthritis (OA), Rheumatoid Arthritis (RA) Additional Past Medical History / Comment(s): Right breast cancer in 1995, left breast cancer 2012. Raynauds syndrome and history of osteopenia (s/p 2 yrs use of bisphosphonates in the past). last chemo 1995. Past [employer] history: she has no history of STDs. History of Any Multi-Drug Resistant Organisms: None Reported Past Surgical History: Breast Surgery, Orthopedic Surgery Additional Past Surgical History / Comment(s): left hip replacement Past Anesthesia/Blood Transfusion Reactions: No Reported Reaction Past Psychological History: No Psychological Hx Reported Smoking Status: Never smoker Past Alcohol Use History: None Reported Past Drug Use History: None Reported - Past Family History Mother Family Medical History: Cancer Additional Family Medical History / Comment(s): Unknown type of cancer. Sister(s) Family Medical History: Cancer Additional Family Medical History / Comment(s): Lymphoma. Medications and Allergies Home Medications Medication Instructions Recorded Confirmed Type Certolizumab Pegol [Cimzia] 400 mg INJ Q28D 01/17/18 09/04/23 History NIFEdipine XL [Procardia XL] 30 mg PO DAILY 01/17/18 09/04/23 History Cyanocobalamin (Vitamin B-12) 1,000 mcg PO DAILY 07/19/23 09/04/23 History [Vitamin B-12] Glucosa Elizabeth 2Kcl/Chondroitin Elizabeth 1 each PO DAILY 07/19/23 09/04/23 History [Glucosamine-Chondroitin Cap] Healthy Vision 1 tab PO DAILY 07/19/23 09/04/23 History L.acidoph,Paracasei, B.lactis 1 cap PO DAILY 07/19/23 09/04/23 History [Probiotic] Magnesium 250 mg PO DAILY 07/19/23 09/04/23 History Multivitamins, Thera [Multivitamin 1 tab PO DAILY 07/19/23 09/04/23 History (formulary)] Ubidecarenone [Co Q-10] 100 mg PO BID 07/19/23 09/04/23 History Zinc Gluconate [Zinc] 50 mg PO DAILY 07/19/23 09/04/23 History Aspirin [Adult Low Dose Aspirin EC] 81 mg PO BID #1 tab 09/10/23 Rx Docusate [Colace] 100 mg PO BID #60 capsule 09/10/23 Rx Omeprazole 40 mg PO DAILY #30 tab 09/10/23 Rx HYDROcodone/APAP 7.5-325MG [[place] 1 - 2 tab PO Q6HR PRN #32 tab 09/11/23 Rx 7.5-325] ceFAZolin [Kefzol] 2 gm IVP Q8HR #120 each 09/12/23 Rx Allergies Allergy/AdvReac Type Severity Reaction Status Date / Time Latex, Natural Rubber Allergy Rash/Hives Verified 09/05/23 14:34 Physical Exam Vitals: Vital Signs Temp Pulse Resp BP Pulse Ox 09/12/23 07:13 97.9 F 74 18 122/76 94 L 09/12/23 02:11 98.5 F 82 18 124/71 94 L 09/11/23 18:15 98.5 F 68 15 93/53 96 09/11/23 14:17 98.7 F 77 16 108/65 95 Intake and Output 09/11/23 09/12/23 09/12/23 22:59 06:59 14:59 Other: Voiding Method Toilet Bedside Commode # Voids 4 1 # Bowel Movements 1 - Constitutional General appearance: average body habitus, cooperative, no acute distress - EENT Eyes: anicteric sclerae, EOMI ENT: hearing grossly normal - Neck Neck: no lymphadenopathy - Respiratory Respiratory: bilateral: CTA - Cardiovascular Rhythm: regular Heart sounds: normal: S1, S2 Abnormal Heart Sounds: no systolic murmur, no diastolic murmur, no rub, no S3 Gallop, no S4 Gallop, no click, no other leg Peripheral Edema: right: 2+, Pitting, left: 1+ - Gastrointestinal General gastrointestinal: no absent bowel sounds, no decreased bowel sounds, no distended, no hepatomegaly, no hyperactive bowel sounds, normal bowel sounds, no organomegaly, no rigid, no scaphoid, soft, no splenomegaly, no tenderness, no umbilical hernia, no ventral hernia - Integumentary Integumentary: normal - Neurologic Neurologic: CNII-XII intact - Musculoskeletal Musculoskeletal: generalized weakness, strength equal bilaterally - Psychiatric Psychiatric: A&O x's 3, appropriate affect, intact judgment & insight Results CBC & Chem 7: 09/12/23 06:42 09/12/23 06:42 Labs: Microbiology - Last 24 Hours (Table) 09/09/23 09:30 Gram Stain - Final Hip - Left Wound Culture - Final 09/09/23 09:30 Gram Stain - Final Hip - Left Wound Culture - Final Staphylococcus aureus 09/09/23 09:30 Gram Stain - Final Hip - Left Wound Culture - Final Staphylococcus aureus 09/09/23 09:30 Gram Stain - Preliminary Hip - Left Wound Culture - Preliminary 09/09/23 09:30 Anaerobic Culture - Preliminary Hip - Left 09/09/23 09:30 Anaerobic Culture - Preliminary Hip - Left 09/09/23 09:30 Anaerobic Culture - Preliminary Hip - Left 09/09/23 09:30 Anaerobic Culture - Preliminary Hip - Left Abdominal x-ray: report reviewed Assessment and Plan (1) MSSA (methicillin susceptible Staphylococcus aureus) infection Current Visit: Yes Status: Acute Priority: High Code(s): A49.01 - METHICILLIN SUSCEP STAPH INFECTION, UNSP SITE SNOMED Code(s): 107528891 (2) Anemia Current Visit: Yes Status: Chronic Priority: Medium Code(s): D64.9 - ANEMIA, UNSPECIFIED SNOMED Code(s): 819156594 Plan: MRSA infection -Currently admitted with infected prosthetic. She is on antibiotics. She is being followed by Orthopedics and Infectious Disease. Anemia -Normocytic, normochromic anemia -No bleeding reported, No significant hematoma on exam -Status post 1 unit PRBCs for hemoglobin of 6.3, improved to 7.2, this is an appropriate increase. -Suspect anemia is multifactorial including recent surgery, infection, dilution. -Iron studies are low, ferritin was not ordered, this will be checked. Quite possibly anemia of inflammation due to her acute situation. Pending ferritin levels before prescribing any supplements. -Will plan for a follow-up appointment after patient is discharged from rehabilitation. Doctor attests: I performed a history and physical examination of this patient, developed impression and plan of care. Discussed with dictator. I agree with dictators note, documented as a scribe.
[2023-09-12] MEDS: FOLIC ACID 1 MG TAB PO SCH (13:58)
[2023-09-12] MEDS: MAGNESIUM HYDROXIDE 2,400 MG/30 ML CUP PO PRN (14:02)
[2023-09-12] MEDS ORDERED: NA PHOS,M-B/NA PHOS,DI-BA 133 ML ENEMA RECTAL ONE (14:11)
--- NOTE | 2023-09-12 16:26 | P.PN ---
Subjective Progress Note Date: 09/11/23 Principal diagnosis: Reason for follow-up is left hip abscess MSSA Patient is a 78-year-old female with a past medical history significant for rheumatoid arthritis history of right breast cancer this patient who is status post left hip replacement on 07/28/2023, did have swelling to the left lower extremity and apparently the patient did have large subcutaneous abscess that was drained in outpatient culture positive for MSSA patient subsequently has been admitted to the hospital for washout of the left hip and antibiotic bead placement. Patient is status post left hip irrigation and debridement an excisional debridement of all nonviable skin, subcutaneous tissu e, and muscle down to the level of the hip joint was performed using a scalpel and Application of negative pressure incisional wound VAC, left hip on 09/05/2023, the patient is status post repeat washout on 09/09/2023 On today's evaluation that is 09/11/2023, the patient continues to be afebrile patient is breathing comfortably on room air without need for supplemental oxygen the patient denies chest pain did have occasional cough no sputum production patient denies abdominal pain no nausea no vomiting and no diarrhea has been reported, patient pain to the left foot is controlled with the current medication Patient did have a white count of 8.64, creatinine 0.5, CRP 6.20 and sed rate of 41 left hip culture with MSSA blood culture negative Objective - Vital Signs Vital signs: Vital Signs Temp 98.7 F 09/11/23 14:17 Pulse 77 09/11/23 14:17 Resp 16 09/11/23 14:17 BP 108/65 09/11/23 14:17 Pulse Ox 95 09/11/23 14:17 FiO2 Intake & Output 09/10/23 09/11/23 09/11/23 18:59 06:59 18:59 Intake Total 310 Balance 310 Weight 58.967 kg Intake: Blood Product 310 Rc Irr As1 Unit 310 [id number] Other: # Voids 4 3 # Bowel Movements 1 0 - Exam GENERAL DESCRIPTION: An elderly female lying in bed in no distress RESPIRATORY SYSTEM: Unlabored breathing , decreased breath sounds at bases HEART: S1 S2 regular rate and rhythm , ABDOMEN: Soft , no tenderness EXTREMITIES: No edema feet - Labs CBC & Chem 7: 09/12/23 06:42 09/12/23 06:42 Labs: Abnormal Lab Results - Last 24 Hours (Table) 09/10/23 09/11/23 09/11/23 Range/Units 11:51 04:44 04:44 RBC 2.46 L (4.10-5.20) X 10*6/uL Hgb 7.2 L (12.0-15.0) g/dL Hct 22.8 L (37.2-46.3) % MCHC 31.6 L (32.0-37.0) g/dL RDW 16.9 H (11.5-14.5) % MPV 8.9 L (9.5-12.2) FL Immature Gran # 0.05 H (0.00-0.04) X 10*3/uL Creatinine 0.5 L (0.6-1.5) mg/dL BUN/Creatinine Ratio 22.00 H (12.00-20.00) Ratio Calcium 8.3 L (8.7-10.3) mg/dL Crossmatch See Detail Microbiology - Last 24 Hours (Table) 09/09/23 09:30 Anaerobic Culture - Preliminary Hip - Left 09/09/23 09:30 Anaerobic Culture - Preliminary Hip - Left 09/09/23 09:30 Anaerobic Culture - Preliminary Hip - Left 09/09/23 09:30 Anaerobic Culture - Preliminary Hip - Left 09/09/23 09:30 Gram Stain - Preliminary Hip - Left Wound Culture - Preliminary Presumptive Staph aureus 09/09/23 09:30 Gram Stain - Preliminary Hip - Left Wound Culture - Preliminary Assessment and Plan (1) MSSA (methicillin susceptible Staphylococcus aureus) infection Current Visit: Yes Status: Acute Priority: High Code(s): A49.01 - METHICILLIN SUSCEP STAPH INFECTION, UNSP SITE SNOMED Code(s): 577881378 (2) Left hip prosthetic joint infection Current Visit: Yes Status: Acute Code(s): T84.52XA - INFECT/INFLM REACTION DUE TO INTERNAL LEFT HIP PROSTH, INIT SNOMED Code(s): 17377150679076870 Plan: 1patient presented to hospital with a left hip pain swelling redness did have some drainage with recent aspirate in the outpatient setting coming back positive with MSSA very suspicious for underlying left hip septic arthritis 2blood cultures are so far negative local culture positive for MSSA 3patient is status post Left hip irrigation and excisional debridement of all nonviable skin, subcutaneous tissue, and muscle down to the level of the hip joint was performed using a scalpel and Application of negative pressure incisional wound VAC completed on 09/05/2023 with repeat procedure on 09/09/2023 4patient seem to be slowly clinical pulmonary and will continue with cefazolin to 2 g every 8 hours, plan is for 6 weeks of IV antibiotic therapy, currently waiting for placement Dictation was produced using [email or web address] dictation software. please excuse any grammatical, word or spelling errors. Time with Patient: Less than 30
--- NOTE | 2023-09-12 16:27 | P.PN ---
Subjective Progress Note Date: 09/12/23 Principal diagnosis: Reason for follow-up is left hip abscess MSSA Patient is a 78-year-old female with a past medical history significant for rheumatoid arthritis history of right breast cancer this patient who is status post left hip replacement on 07/28/2023, did have swelling to the left lower extremity and apparently the patient did have large subcutaneous abscess that was drained in outpatient culture positive for MSSA patient subsequently has been admitted to the hospital for washout of the left hip and antibiotic bead placement. Patient is status post left hip irrigation and debridement an excisional debridement of all nonviable skin, subcutaneous tissu e, and muscle down to the level of the hip joint was performed using a scalpel and Application of negative pressure incisional wound VAC, left hip on 09/05/2023, the patient is status post repeat washout on 09/09/2023 On today's evaluation that is 09/12/2023, the patient remains to be afebrile, the patient is breathing comfortably on room air and the patient denies any shortness of breath, the patient denies chest pain or any cough , patient denies any nausea/vomiting abdominal pain or diarrhea, patient pain to the left hip has decreased in intensity Patient did have a white count of 6.29, creatinine 0.4, CRP 6.20 and sed rate of 41 left hip culture with MSSA blood culture negative Objective - Vital Signs Vital signs: Vital Signs Temp 97.9 F 09/12/23 07:13 Pulse 74 09/12/23 07:13 Resp 18 09/12/23 07:13 BP 122/76 09/12/23 07:13 Pulse Ox 94 L 09/12/23 07:13 FiO2 Intake & Output 09/11/23 09/12/23 09/12/23 18:59 06:59 18:59 Weight 58.967 kg Other: Voiding Method Toilet Bedside Commode # Voids 4 1 # Bowel Movements 0 1 - Exam GENERAL DESCRIPTION: An elderly female lying in bed in no distress RESPIRATORY SYSTEM: Unlabored breathing , decreased breath sounds at bases HEART: S1 S2 regular rate and rhythm , ABDOMEN: Soft , no tenderness EXTREMITIES: No edema feet - Labs CBC & Chem 7: 09/12/23 06:42 09/12/23 06:42 Labs: Abnormal Lab Results - Last 24 Hours (Table) 0109/12/23 09/12/23 Range/Units 11:51 06:42 06:42 RBC 2.46 L (4.10-5.20) X 10*6/uL Hgb 6.9 A* (12.0-15.0) g/dL Hct 22.8 L (37.2-46.3) % MCHC 30.3 L (32.0-37.0) g/dL RDW 17.0 H (11.5-14.5) % MPV 8.7 L (9.5-12.2) FL Creatinine 0.4 L (0.6-1.5) mg/dL BUN/Creatinine Ratio 24.00 H (12.00-20.00) Ratio Calcium 8.3 L (8.7-10.3) mg/dL Crossmatch See Detail Microbiology - Last 24 Hours (Table) 09/09/23 09:30 Gram Stain - Final Hip - Left Wound Culture - Final 09/09/23 09:30 Gram Stain - Final Hip - Left Wound Culture - Final Staphylococcus aureus 09/09/23 09:30 Gram Stain - Final Hip - Left Wound Culture - Final Staphylococcus aureus 09/09/23 09:30 Gram Stain - Preliminary Hip - Left Wound Culture - Preliminary 09/09/23 09:30 Anaerobic Culture - Preliminary Hip - Left 09/09/23 09:30 Anaerobic Culture - Preliminary Hip - Left 09/09/23 09:30 Anaerobic Culture - Preliminary Hip - Left 09/09/23 09:30 Anaerobic Culture - Preliminary Hip - Left Assessment and Plan (1) MSSA (methicillin susceptible Staphylococcus aureus) infection Current Visit: Yes Status: Acute Priority: High Code(s): A49.01 - METHICILLIN SUSCEP STAPH INFECTION, UNSP SITE SNOMED Code(s): 322496717 (2) Left hip prosthetic joint infection Current Visit: Yes Status: Acute Code(s): T84.52XA - INFECT/INFLM REACTION DUE TO INTERNAL LEFT HIP PROSTH, INIT SNOMED Code(s): 54921225604874427 Plan: 1patient presented to hospital with a left hip pain swelling redness did have some drainage with recent aspirate in the outpatient setting coming back positive with MSSA very suspicious for underlying left hip septic arthritis 2blood cultures are so far negative local culture positive for MSSA 3patient is status post Left hip irrigation and excisional debridement of all nonviable skin, subcutaneous tissue, and muscle down to the level of the hip joint was performed using a scalpel and Application of negative pressure inci sional wound VAC completed on 09/05/2023 with repeat procedure on 09/09/2023 4patient has shown clinical improvement, patient will continue with cefazolin to 2 g every 8 hours to finish 6-week course of therapy with weekly monitoring of sed rate and CRP and close outpatient follow-up multiple questions were answered Dictation was produced using [employer] software. please excuse any grammatical, word or spelling errors. Time with Patient: Less than 30
[2023-09-12 21:03] VITALS: RESP 18
[2023-09-12] MEDS: KETOROLAC 15 MG/ML 1 ML VIAL IVP PRN (21:03)
[2023-09-12] MEDS: SENNOSIDES-DOCUSATE SODIUM 1 EACH TAB PO SCH (21:03)
--- NOTE | 2023-09-12 22:59 | P.PN ---
Subjective Progress Note Date: 09/12/23 Patient is evaluated today on the medical floor. She is postoperative left hip arthroplasty with washout and placement of antibiotic beads. Woundvac is in place with bloody drainage. She did have drop in hemoglobin today 6.9 and will be transfused 1 unit of PRBC and recommend to continue on oral ferrous sulfate. Discharged held up due to the anemia. Additionally patient was noted to have abdominal distention has not had a BM In days. She does states she is passing gas. She is tympanic on examination abdominal xray was done showing severe constipation unable to rule out fecal impaction. Bilateral lower lobe infiltrate and small pleural effusion mentioned. She is currently on room air. We would recommend an IS at this time and monitor. Review of Systems Constitutional: Denied any fatigue denied any fever. Cardio vascular: denied any chest pain, palpitations Gastrointestinal: denied any nausea, vomiting, diarrhea reporting constipation Pulmonary: Denied any shortness of breath cough Neurologic denied any new focal deficits All inpatient medications were reviewed and appropriate changes in these medications as dictated in the interval history and assessment and plan. PHYSICAL EXAMINATION: GENERAL: The patient is alert and oriented x3, not in any acute distress. Well developed, well nourished. HEENT: Pupils are round and equally reacting to light. EOMI. No scleral icterus. No conjunctival pallor. Normocephalic, atraumatic. No pharyngeal erythema. No thyromegaly. CARDIOVASCULAR: S1 and S2 present. No murmurs, rubs, or gallops. PULMONARY: Chest is clear to auscultation, no wheezing or crackles. ABDOMEN: Soft, nontender, distended and tympanic, normoactive bowel sounds. No p alpable organomegaly. MUSCULOSKELETAL: No joint swelling or deformity. EXTREMITIES: No cyanosis, clubbing, or pedal edema. NEUROLOGICAL: Gross neurological examination did not reveal any focal deficits. SKIN: No rashes. 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 Cultures showing MSSA on course of IV antibiotics with 10 days of oral planned for discharge. Wound VAC in place and to continue on discharge and not be removed until f/u with orthopedics. -Anemia with low iron levels r/o underlying iron deficiency ferritin level pending. status post PRBC transfusion patient was anemic again today hemoglobin 6.9 and received 1 unit of PRBC and will repeat labs in the AM, hematology following. -Constipation severe due to decreased activity, narcotic use patient will be given fleet enema and laxative. Recommend to monitor overnight for improvement. Avoid the use of narcotics. -Hx of right breast cancer -Hx of reynauds -Hx of rhemuatoid arthritis GI prophylaxis DVT prophylaxis: Aspirin 81 mg BID per primary services Full Code Plan for discharge to subacute rehab hopefully in the next 24 hours. The impression and plan of care has been dictated by Chiara Malcolm, Nurse Practitioner as directed. Dr. Dimitri MD I have performed a history and physical examination and medical decision making of this patient, discussed the same with the dictator, and agree with the dictators assessment and plan as written, documented as a scribe. Based on total visit time, I have performed more than 50% of this visit. Objective - Vital Signs Vital signs: Vital Signs Temp 97.8 F 09/12/23 13:52 Pulse 72 09/12/23 14:02 Resp 16 09/12/23 14:02 BP 113/69 09/12/23 14:02 Pulse Ox 98 09/12/23 14:02 FiO2 Intake & Output 09/11/23 09/12/23 09/12/23 18:59 06:59 18:59 Intake Total 0 Balance 0 Weight 58.967 kg Intake: Blood Product 0 Unit 0 Other: Voiding Method Toilet Bedside Commode # Voids 4 1 # Bowel Movements 0 1 - Labs CBC & Chem 7: 09/12/23 06:42 09/12/23 06:42 Labs: Abnormal Lab Results - Last 24 Hours (Table) 09/10/23 09/12/23 09/12/23 Range/Units 11:51 06:42 06:42 RBC 2.46 L (4.10-5.20) X 10*6/uL Hgb 6.9 A* (12.0-15.0) g/dL Hct 22.8 L (37.2-46.3) % MCHC 30.3 L (32.0-37.0) g/dL RDW 17.0 H (11.5-14.5) % MPV 8.7 L (9.5-12.2) FL Creatinine 0.4 L (0.6-1.5) mg/dL BUN/Creatinine Ratio 24.00 H (12.00-20.00) Ratio Calcium 8.3 L (8.7-10.3) mg/dL Crossmatch See Detail Microbiology - Last 24 Hours (Table) 09/09/23 09:30 Gram Stain - Final Hip - Left Wound Culture - Final 09/09/23 09:30 Gram Stain - Final Hip - Left Wound Culture - Final Staphylococcus aureus 09/09/23 09:30 Gram Stain - Final Hip - Left Wound Culture - Final Staphylococcus aureus 09/09/23 09:30 Gram Stain - Preliminary Hip - Left Wound Culture - Preliminary 09/09/23 09:30 Anaerobic Culture - Preliminary Hip - Left 09/09/23 09:30 Anaerobic Culture - Preliminary Hip - Left 09/09/23 09:30 Anaerobic Culture - Preliminary Hip - Left 09/09/23 09:30 Anaerobic Culture - Preliminary Hip - Left Assessment and Plan Time with Patient: Less than 30
[2023-09-13] MEDS: HEPARIN SODIUM,PORCINE 5,000 UNIT/ML 1 ML VIAL SQ SCH ×2 (01:01→11:25)
[2023-09-13] MEDS: PANTOPRAZOLE 40 MG TABLET PO SCH (05:51)
[2023-09-13] MEDS: THIAMINE 100 MG TAB PO SCH (05:51)
[2023-09-13] MEDS: LACTATED RINGERS 1,000 ML IV SCH (05:52)
[2023-09-13] MEDS: KETOROLAC 15 MG/ML 1 ML VIAL IVP PRN ×2 (05:52→13:41)
[2023-09-13 08:36] LABS: Basophils # (A) 0.06 X 10*3/uL (0.00-0.10); Basophils % (A) 0.8 %; Eosinophils # (A) 0.26 X 10*3/uL (0.04-0.35); Eosinophils % (A) 3.6 %; HCT 26.3 % (37.2-46.3); HGB 8.4 g/dL (12.0-15.0); Lymphocytes % (A) 12.6 %; MCH 29.4 pg (27.0-32.0); MCHC 31.9 g/dL (32.0-37.0); Mean Platelet Volume 8.5 FL (9.5-12.2); Monocytes % (A) 8.4 %; NRBC Per 100 WBC 0 X 10*3/uL (0.00-0.01); Neutrophils # (A) 5.29 X 10*3/uL (1.80-7.70); Neutrophils % (A) 74.2 %; Platelet Count 375 X 10*3/uL (140-440); RBC 2.86 X 10*6/uL (4.10-5.20); WBC 7.14 X 10*3/uL (4.50-10.00)
[2023-09-13] MEDS ORDERED: LACTULOSE 20 GM/30 ML CUP PO SCH (09:00)
[2023-09-13] MEDS: NIFEdipine XL 30 MG TAB.ER.24 PO SCH (09:40)
[2023-09-13] MEDS: ASPIRIN 81 MG PO SCH (09:40)
[2023-09-13] MEDS: VIT A,C & E-LUTEIN-MINERALS 1 EACH TAB PO SCH (09:40)
[2023-09-13] MEDS: MULTIVITAMINS, THERA 1 EACH TAB PO SCH (09:40)
[2023-09-13] MEDS: CYANOCOBALAMIN 500 MCG TAB PO SCH (09:41)
[2023-09-13] MEDS: ALPRAZolam 0.25 MG TAB PO SCH (09:41)
[2023-09-13] MEDS: MAGNESIUM OXIDE 400 MG TAB PO SCH (09:41)
[2023-09-13] MEDS: ZINC SULFATE 220 MG CAP PO SCH (09:41)
[2023-09-13] MEDS: LACTOBACILLUS ACIDOPHILUS/PECT 1 EACH CAPSULE PO SCH (09:41)
[2023-09-13] MEDS: SENNOSIDES 8.6 MG TAB PO SCH (09:41)
[2023-09-13] MEDS: FOLIC ACID 1 MG TAB PO SCH (11:25)
--- NOTE | 2023-09-13 11:38 | P.DS ---
Providers Date of admission: 09/04/23 12:15 Expected date of discharge: 09/13/23 Attending physician: Kevin Moser Consults: 09/04/23 12:14 Consult Physician Routine Consulting Provider: Tanesha Kaplan Consult Reason/Comments: infected left hip Do you want consulting provider notified?: Yes 09/04/23 12:15 Consult Physician Routine Consulting Provider: Rosmery Hyman Consult Reason/Comments: medical management Do you want consulting provider notified?: Yes 09/11/23 12:56 Consult Physician Routine Consulting Provider: Lewis Lan Consult Reason/Comments: anemia Do you want consulting provider notified?: Yes Primary care physician: Jose Meeks - Discharge Diagnosis(es) (1) Status post revision of total hip Current Visit: Yes Status: Acute (2) Left hip prosthetic joint infection Current Visit: Yes Status: Acute (3) MSSA (methicillin susceptible Staphylococcus aureus) infection Current Visit: Yes Status: Acute Priority: High Hospital Course: The patient is a very pleasant 78-year-old female with a history significant for rheumatoid arthritis and breast cancer who underwent a left direct anterior total hip replacement on 07/28/2023. She initially did well but had some issues with diffuse leg swelling. She had an ultrasound which showed no evidence of DVT but enlarged inguinal lymph nodes. Her incision was well healed initially. She improved clinically but several days ago had an increase in hip pain and swelling which she attributed to putting away Herman decorations. She was seen in the office and found to have a large subcutaneous abscess and erythema around her incision. It was aspirated and 60 mL's of purulent fluid was aspirated and sent for culture. A computed tomography scan was also obtained to assess the extent of the abscess. We discussed admitting the patient to the hospital last but the patient was adamant that she wanted to attend her husbands surprise 79th birthday democrat this past Monday. She was seen in the office on Monday and her incision had opened and was draining. She was sent to the hospital. The patient was taken to surgery on 09/09/2023 for I&D of the left hip with revision of the total hip components. The patient is stable from orthopedic standpoint. Her hemoglobin dropped to 6.9 on postop day #3. She was given 1 unit of packed red blood cells. Hemoglobin today is a 8.4. She has no new complaints or concerns today. Vital signs are stable. The patient is discharged to inpatient rehab today in stable condition. Please see med rec for accurate list of home medications. She will continue on IV antibiotics per infectious disease. Patient Condition at Discharge: Stable Plan - Discharge Summary Discharge Rx Participant: No New Discharge Prescriptions: New Aspirin [Adult Low Dose Aspirin EC] 81 mg PO BID #1 tab Docusate [Colace] 100 mg PO BID #60 capsule HYDROcodone/APAP 7.5-325MG [[place] 7.5-325] 1 - 2 tab PO Q6HR PRN #32 tab PRN Reason: Pain Lactulose [Cephulac] 20 gm PO DAILY PRN ml PRN Reason: Constipation Melatonin 5 mg PO HS PRN tab PRN Reason: Insomnia Sennosides-Docusate Sodium [Senokot-S] 2 each PO HS PRN tab PRN Reason: Constipation ALPRAZolam [Xanax] 0.25 mg PO BID #2 tab Omeprazole 40 mg PO DAILY #30 tab ceFAZolin [Kefzol] 2 gm IVP Q8HR #120 each Folic Acid 1 mg PO DAILY@1200 tab Pantoprazole [Protonix] 40 mg PO AC-BRKFST tab Thiamine [Vitamin B-1] 100 mg PO BID-W/MEALS tab Continue NIFEdipine XL [Procardia XL] 30 mg PO DAILY Certolizumab Pegol [Cimzia] 400 mg INJ Q28D Zinc Gluconate [Zinc] 50 mg PO DAILY Ubidecarenone [Co Q-10] 100 mg PO BID Magnesium 250 mg PO DAILY L.acidoph,Paracasei, B.lactis [Probiotic] 1 cap PO DAILY Healthy Vision 1 tab PO DAILY Multivitamins, Thera [Multivitamin (formulary)] 1 tab PO DAILY Glucosa Elizabeth 2Kcl/Chondroitin Elizabeth [Glucosamine-Chondroitin Cap] 1 each PO DAILY Cyanocobalamin (Vitamin B-12) [Vitamin B-12] 1,000 mcg PO DAILY Discontinued Cephalexin [Keflex] 500 mg PO Q6HR Discharge Medication List Certolizumab Pegol [Cimzia] 400 mg INJ Q28D 01/17/18 [History] NIFEdipine XL [Procardia XL] 30 mg PO DAILY 01/17/18 [History] Cyanocobalamin (Vitamin B-12) [Vitamin B-12] 1,000 mcg PO DAILY 07/19/23 [History] Glucosa Elizabeth 2Kcl/Chondroitin Elizabeth [Glucosamine-Chondroitin Cap] 1 each PO DAILY 07/19/23 [History] Healthy Vision 1 tab PO DAILY 07/19/23 [History] L.acidoph,Paracasei, B.lactis [Probiotic] 1 cap PO DAILY 07/19/23 [History] Magnesium 250 mg PO DAILY 07/19/23 [History] Multivitamins, Thera [Multivitamin (formulary)] 1 tab PO DAILY 07/19/23 [History] Ubidecarenone [Co Q-10] 100 mg PO BID 07/19/23 [History] Zinc Gluconate [Zinc] 50 mg PO DAILY 07/19/23 [History] Aspirin [Adult Low Dose Aspirin EC] 81 mg PO BID #1 tab 09/10/23 [Rx] Docusate [Colace] 100 mg PO BID #60 capsule 09/10/23 [Rx] Omeprazole 40 mg PO DAILY #30 tab 09/10/23 [Rx] HYDROcodone/APAP 7.5-325MG [[place] 7.5-325] 1 - 2 tab PO Q6HR PRN #32 tab 09/11/23 [Rx] ceFAZolin [Kefzol] 2 gm IVP Q8HR #120 each 09/12/23 [Rx] ALPRAZolam [Xanax] 0.25 mg PO BID #2 tab 09/13/23 [Rx] Folic Acid 1 mg PO DAILY@1200 tab 09/13/23 [Rx] Lactulose [Cephulac] 20 gm PO DAILY PRN ml 09/13/23 [Rx] Melatonin 5 mg PO HS PRN tab 09/13/23 [Rx] Pantoprazole [Protonix] 40 mg PO AC-BRKFST tab 09/13/23 [Rx] Sennosides-Docusate Sodium [Senokot-S] 2 each PO HS PRN tab 09/13/23 [Rx] Thiamine [Vitamin B-1] 100 mg PO BID-W/MEALS tab 09/13/23 [Rx] Follow up Appointment(s)/Referral(s): Wyatt Rosas NPC [Nurse Practitioner] - 10/09/23 10:45 am Tanesha Kaplan MD [STAFF PHYSICIAN] - 2 Weeks Kevin Moser MD [Medical Doctor] - 09/21/23 1:35 pm Ambulatory/Diagnostic Orders: Basic Metabolic Panel [LAB.AMB] Location: None Selected C Reactive Protein [LAB.AMB] Location: None Selected Complete Blood Count w/diff [LAB.AMB] Location: None Selected Erythrocyte Sedimentation Rate [LAB.AMB] Location: None Selected Activity/Diet/Wound Care/Special Instructions: May bear wt as tolerated with walker. Leave wound vac in place - DO NOT REMOVE- will be removed by our office at 2 week post op visit. Discharge Disposition: TRANSFER TO SNF/ECF
--- NOTE | 2023-09-13 12:31 | P.PN ---
Subjective Progress Note Date: 09/13/23 Patient is evaluated today on the medical floor. She is postoperative left hip arthroplasty with washout and placement of antibiotic beads. Woundvac is in place with bloody drainage. She did have drop in hemoglobin today 6.9 and will be transfused 1 unit of PRBC and recommend to continue on oral ferrous sulfate. Discharged held up due to the anemia. Additionally patient was noted to have abdominal distention has not had a BM In days. She does states she is passing gas. She is tympanic on examination abdominal xray was done showing severe constipation unable to rule out fecal impaction. Bilateral lower lobe infiltrate and small pleural effusion mentioned. She is currently on room air. We would recommend an IS at this time and monitor. 09/13/2023 Patient seen and evaluated today on the medical floor. Patient has had multiple bowel movements yesterday 5 plus time after receiving enema, abdomen is softer today, with normoactive bowel sounds. Patient is on room air, afebrile. no shortness of breath. Lungs are clear. Encouraged to continue with incentive spirometer. Wound vac in place. Hemoglobin 8.4 after 1 unit PRBC. Can discharge to rehab today if cleared by primary. Review of Systems Constitutional: Denied any fatigue denied any fever. Cardio vascular: denied any chest pain, palpitations Gastrointestinal: denied any nausea, vomiting, diarrhea reporting constipation Pulmonary: Denied any shortness of breath cough Neurologic denied any new focal deficits All inpatient medications were reviewed and appropriate changes in these medications as dictated in the interval history and assessment and plan. PHYSICAL EXAMINATION: GENERAL: The patient is alert and oriented x3, not in any acute distress. Well developed, well nourished. HEENT: Pupils are round and equally reacting to light. EOMI. No scleral icterus. No conjunctival pallor. Normocephalic, atraumatic. No pharyngeal erythema. No thyromegaly. CARDIOVASCULAR: S1 and S2 present. No murmurs, rubs, or gallops. PULMONARY: Chest is clear to auscultation, no wheezing or crackles. ABDOMEN: Soft, nontender, distended and tympanic, normoactive bowel sounds. No palpable organomegaly. MUSCULOSKELETAL: No joint swelling or deformity. EXTREMITIES: No cyanosis, clubbing, or pedal edema. NEUROLOGICAL: Gross neurological examination did not reveal any focal deficits. SKIN: No rashes. 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 Cultures showing MSSA on course of IV antibiotics with 10 days of oral planned for discharge. Wound VAC in place and to continue on discharge and not be removed until f/u with orthopedics. -Anemia with low iron levels r/o underlying iron deficiency ferritin level pending. status post PRBC transfusion. Patient received a second unit of blood hemoglobin improved to 8.4 would recommend to monitor hemoglobin repeat in 2 to 3 days. -Constipation severe due to decreased activity, narcotic use patient will be given fleet enema and laxative. Resolved. -Hx of right breast cancer -Hx of reynauds -Hx of rhemuatoid arthritis GI prophylaxis DVT prophylaxis: Aspirin 81 mg BID per primary services Full Code The impression and plan of care has been dictated by Chiara Malcolm, Nurse Practitioner as directed. Dr. Dimitri MD I have performed a history and physical examination and medical decision making of this patient, discussed the same with the dictator, and agree with the dictators assessment and plan as written, documented as a scribe. Based on total visit time, I have performed more than 50% of this visit. Objective - Vital Signs Vital signs: Vital Signs Temp 97.5 F L 09/13/23 07:00 Pulse 69 09/13/23 07:00 Resp 18 09/13/23 07:00 BP 132/78 09/13/23 07:00 Pulse Ox 97 09/13/23 07:00 FiO2 Intake & Output 09/12/23 09/13/23 09/13/23 18:59 06:59 18:59 Intake Total 310 Balance 310 Intake: Blood Product 310 Rc As-1 Unit 310 [id number] Other: Voiding Method Toilet Bedside Commode # Voids 1 3 # Bowel Movements 1 - Labs CBC & Chem 7: 09/13/23 05:20 09/12/23 06:42 Labs: Abnormal Lab Results - Last 24 Hours (Table) 09/10/23 09/12/23 09/12/23 Range/Units 11:51 06:42 06:42 RBC 2.46 L (4.10-5.20) X 10*6/uL Hgb 6.9 A* (12.0-15.0) g/dL Hct 22.8 L (37.2-46.3) % MCHC 30.3 L (32.0-37.0) g/dL RDW 17.0 H (11.5-14.5) % MPV 8.7 L (9.5-12.2) FL Creatinine 0.4 L (0.6-1.5) mg/dL BUN/Creatinine Ratio 24.00 H (12.00-20.00) Ratio Calcium 8.3 L (8.7-10.3) mg/dL Ferritin (10.0-291.0) ng/mL Crossmatch See Detail 09/12/23 09/13/23 Range/Units 06:42 05:20 RBC 2.86 L (4.10-5.20) X 10*6/uL Hgb 8.4 L (12.0-15.0) g/dL Hct 26.3 L (37.2-46.3) % MCHC 31.9 L (32.0-37.0) g/dL RDW 17.0 H (11.5-14.5) % MPV 8.5 L (9.5-12.2) FL Creatinine (0.6-1.5) mg/dL BUN/Creatinine Ratio (12.00-20.00) Ratio Calcium (8.7-10.3) mg/dL Ferritin 309.0 H (10.0-291.0) ng/mL Crossmatch Microbiology - Last 24 Hours (Table) 09/09/23 09:30 Gram Stain - Final Hip - Left Wound Culture - Final 09/09/23 09:30 Gram Stain - Final Hip - Left Wound Culture - Final 09/09/23 09:30 Gram Stain - Final Hip - Left Wound Culture - Final Staphylococcus aureus 09/09/23 09:30 Gram Stain - Final Hip - Left Wound Culture - Final Staphylococcus aureus Assessment and Plan Time with Patient: Less than 30
--- NOTE | 2023-09-13 12:33 | P.PN ---
Subjective Progress Note Date: 09/13/23 Principal diagnosis: Reason for follow-up is left hip abscess MSSA Patient is a 78-year-old female with a past medical history significant for rheumatoid arthritis history of right breast cancer this patient who is status post left hip replacement on 07/28/2023, did have swelling to the left lower extremity and apparently the patient did have large subcutaneous abscess that was drained in outpatient culture positive for MSSA patient subsequently has been admitted to the hospital for washout of the left hip and antibiotic bead placement. Patient is status post left hip irrigation and debridement an excisional debridement of all nonviable skin, subcutaneous tissu e, and muscle down to the level of the hip joint was performed using a scalpel and Application of negative pressure incisional wound VAC, left hip on 09/05/2023, the patient is status post repeat washout on 09/09/2023 On today's evaluation that is 09/13/2023, the patient continues to be afebrile patient is breathing comfortably on room air, no need for supplemental oxygen, patient denies any chest pain or cough no nausea no vomiting and no diarrhea has been reported, patient pain to the left hip has decreased in intensity, no new symptoms Patient did have a white count of 7.14, creatinine 0.4, CRP 6.20 and sed rate of 41 left hip culture with MSSA blood culture negative Objective - Vital Signs Vital signs: Vital Signs Temp 97.5 F L 09/13/23 07:00 Pulse 69 09/13/23 07:00 Resp 18 09/13/23 07:00 BP 132/78 09/13/23 07:00 Pulse Ox 97 09/13/23 07:00 FiO2 Intake & Output 09/12/23 09/13/23 09/13/23 18:59 06:59 18:59 Intake Total 310 Balance 310 Intake: Blood Product 310 Rc As-1 Unit 310 [id number] Other: Voiding Method Toilet Bedside Commode # Voids 1 3 # Bowel Movements 1 - Exam GENERAL DESCRIPTION: An elderly female lying in bed in no distress RESPIRATORY SYSTEM: Unlabored breathing , decreased breath sounds at bases HEART: S1 S2 regular rate and rhythm , ABDOMEN: Soft , no tenderness EXTREMITIES: No edema feet - Labs CBC & Chem 7: 09/13/23 05:20 09/12/23 06:42 Labs: Abnormal Lab Results - Last 24 Hours (Table) 09/10/23 09/12/23 09/12/23 Range/Units 11:51 06:42 06:42 RBC 2.46 L (4.10-5.20) X 10*6/uL Hgb 6.9 A* (12.0-15.0) g/dL Hct 22.8 L (37.2-46.3) % MCHC 30.3 L (32.0-37.0) g/dL RDW 17.0 H (11.5-14.5) % MPV 8.7 L (9.5-12.2) FL Creatinine 0.4 L (0.6-1.5) mg/dL BUN/Creatinine Ratio 24.00 H (12.00-20.00) Ratio Calcium 8.3 L (8.7-10.3) mg/dL Ferritin (10.0-291.0) ng/mL Crossmatch See Detail 09/12/23 09/13/23 Range/Units 06:42 05:20 RBC 2.86 L (4.10-5.20) X 10*6/uL Hgb 8.4 L (12.0-15.0) g/dL Hct 26.3 L (37.2-46.3) % MCHC 31.9 L (32.0-37.0) g/dL RDW 17.0 H (11.5-14.5) % MPV 8.5 L (9.5-12.2) FL Creatinine (0.6-1.5) mg/dL BUN/Creatinine Ratio (12.00-20.00) Ratio Calcium (8.7-10.3) mg/dL Ferritin 309.0 H (10.0-291.0) ng/mL Crossmatch Microbiology - Last 24 Hours (Table) 09/09/23 09:30 Anaerobic Culture - Final Hip - Left 09/09/23 09:30 Anaerobic Culture - Final Hip - Left 09/09/23 09:30 Anaerobic Culture - Final Hip - Left 09/09/23 09:30 Anaerobic Culture - Final Hip - Left 09/09/23 09:30 Gram Stain - Final Hip - Left Wound Culture - Final 09/09/23 09:30 Gram Stain - Final Hip - Left Wound Culture - Final 09/09/23 09:30 Gram Stain - Final Hip - Left Wound Culture - Final Staphylococcus aureus 09/09/23 09:30 Gram Stain - Final Hip - Left Wound Culture - Final Staphylococcus aureus Assessment and Plan (1) Left hip prosthetic joint infection Current Visit: Yes Status: Acute Code(s): T84.52XA - INFECT/INFLM REACTION DUE TO INTERNAL LEFT HIP PROSTH, INIT SNOMED Code(s): 67834994657921501 (2) MSSA (methicillin susceptible Staphylococcus aureus) infection Current Visit: Yes Status: Acute Priority: High Code(s): A49.01 - METHICILLIN SUSCEP STAPH INFECTION, UNSP SITE SNOMED Code(s): 800715275 Plan: 1patient presented to hospital with a left hip pain swelling redness did have some drainage with recent aspirate in the outpatient setting coming back positive with MSSA very suspicious for underlying left hip septic arthritis 2blood cultures are so far negative local culture positive for MSSA 3patient is status post Left hip irrigation and excisional debridement of all nonviable skin, subcutaneous tissue, and muscle down to the level of the hip joint was performed using a scalpel and Application of negative pressure i ncisional wound VAC completed on 09/05/2023 with repeat procedure on 09/09/2023 4plan is to continue with the cefazolin 2 g every 8 hours x 6 weeks with weekly monitoring of sed rate CRP close outpatient follow-up followed by suppressive oral antibiotic therapy And close outpatient follow-up Dictation was produced using [employer] dictation software. please excuse any grammatical, word or spelling errors. Time with Patient: Less than 30
--- NOTE | 2023-09-13 13:59 | P.PN ---
Subjective Progress Note Date: 09/13/23 Principal diagnosis: Anemia In follow-up today patient denies bleeding, no unusual bruising. Bilateral lower extremities still has swelling. She did receive a unit of PRBCs yest erday. Objective - Vital Signs Vital signs: Vital Signs Temp 97.5 F L 09/13/23 07:00 Pulse 69 09/13/23 07:00 Resp 18 09/13/23 07:00 BP 132/78 09/13/23 07:00 Pulse Ox 97 09/13/23 07:00 FiO2 Intake & Output 09/12/23 09/13/23 09/13/23 18:59 06:59 18:59 Intake Total 310 Balance 310 Intake: Blood Product 310 Rc As-1 Unit 310 [id number] Other: Voiding Method Toilet Bedside Commode # Voids 1 3 # Bowel Movements 1 - Constitutional General appearance: Present: average body habitus, cooperative, no acute distress - EENT Eyes: Present: anicteric sclerae, EOMI ENT: Present: hearing grossly normal - Respiratory Respiratory: bilateral: CTA - Cardiovascular Rhythm: regular - Peripheral edema leg Peripheral Edema: right: Trace, left: 1+ - Psychiatric Psychiatric: Present: A&O x's 3, appropriate affect, intact judgment & insight - Labs CBC & Chem 7: 09/13/23 05:20 09/12/23 06:42 Labs: Abnormal Lab Results - Last 24 Hours (Table) 09/10/23 09/12/23 09/13/23 Range/Units 11:51 06:42 05:20 RBC 2.86 L (4.10-5.20) X 10*6/uL Hgb 8.4 L (12.0-15.0) g/dL Hct 26.3 L (37.2-46.3) % MCHC 31.9 L (32.0-37.0) g/dL RDW 17.0 H (11.5-14.5) % MPV 8.5 L (9.5-12.2) FL Ferritin 309.0 H (10.0-291.0) ng/mL Crossmatch See Detail Microbiology - Last 24 Hours (Table) 09/09/23 09:30 Anaerobic Culture - Final Hip - Left 09/09/23 09:30 Anaerobic Culture - Final Hip - Left 09/09/23 09:30 Anaerobic Culture - Final Hip - Left 09/09/23 09:30 Anaerobic Culture - Final Hip - Left 09/09/23 09:30 Gram Stain - Final Hip - Left Wound Culture - Final 09/09/23 09:30 Gram Stain - Final Hip - Left Wound Culture - Final 09/09/23 09:30 Gram Stain - Final Hip - Left Wound Culture - Final Staphylococcus aureus 09/09/23 09:30 Gram Stain - Final Hip - Left Wound Culture - Final Staphylococcus aureus Assessment and Plan (1) MSSA (methicillin susceptible Staphylococcus aureus) infection Current Visit: Yes Status: Acute Priority: High Code(s): A49.01 - METHICILLIN SUSCEP STAPH INFECTION, UNSP SITE SNOMED Code(s): 799662251 (2) Anemia Current Visit: Yes Status: Chronic Priority: Medium Code(s): D64.9 - ANEMIA, UNSPECIFIED SNOMED Code(s): 743855600 Plan: MRSA infection -Currently admitted with infected prosthetic. She is on antibiotics. She is being followed by Orthopedics and Infectious Disease. She is doing much better -Patient is being discharged to rehabilitation. Agree with plan Anemia -Normocytic, normochromic anemia -No bleeding reported, No significant hematoma on exam -Status post 1 unit PRBCs for hemoglobin of 6.9, improved to 8.4 today. -Suspect anemia is multifactorial including recent surgery, infection, dilution. -Iron studies are low, ferritin 309. Not significantly elevated considering r ecent surgery and infection. Recommend an oral iron supplementation at this time. Will plan for follow-up after patient is discharged from rehabilitation.
[2023-09-13] MEDS ORDERED: FERROUS SULFATE 325 MG TAB PO SCH (14:00)
[2023-09-13 14:11] VITALS: BP 121/76; PULSE 75; TEMP 98.4
--- NOTE | 2023-09-14 19:36 | CDI ---
Documentation Clarification Form Date: 09/14/2023 07:18:33 PM From: Kellen Avalos Phone: Admit Date: 09/04/2023 12:15:00 PM Patient Name: Brea Rodriguez Visit Number: [id number] Discharge Date: 09/13/2023 02:53:00 PM ATTENTION: The Clinical Documentation Specialists (CDI) and [facility] Coding Staff appreciate your assistance in clarifying documentation. Please respond to the clarification below the line at the bottom and electronically sign. The CDI & [facility] Coding staff will review the response and follow-up if needed. Please note: Queries are made part of the Legal Health Record. If you have any questions, please contact the author of this message via ITS. Dr. Kevin Moser Unspecified anemia is documented Progress Note 09/05. Additional specificity regarding the type and acuity of anemia is requested. History/Risk Factors: 78yo F, acute Lt Hip prosthetic infection, MSSA, [place], symptomatic anemia, OA, Hx breast cancer,Raynaud's Clinical indicators: Hemoglobin: 09/05 9.1- 10.7 09/06 8.2 09/07 7.5 09/08 7.3 09/09 7.2 09/10 6.3 09/12 6.9 Hematocrit: 09/05 28.8- 33.8 09/06 26.2 09/07 24.8 09/08 23.9 09/09 23.4 09/10 20.3 Iron 19 Treatment: 1u PRBC 09/10 and 09/12 Please clarify the type and acuity of anemia(s): [ ] Acute blood loss anemia [ ] Present on Admission [ ] Not Present on Admission [ ] Acute on chronic blood loss anemia [ ] Iron deficiency anemia [ ] Unable to determine [ ] Other, please specify (Template Last Revised: September 2020) MTDD
== END 2023-09-13 14:53 | DRG 467 ==
LOC: EC 10:53 → 4SSUR 12:15
PROVIDERS: ADMIT Orthopaedic Surgery; ATTEND Orthopaedic Surgery
PROC: 0SBB0ZZ Excision of Left Hip Joint, Open Approach (ICD-10-PCS; 2023-09-05)
PROC: 3E0102A Introduction of Anti-Infective Envelope into Subcutaneous Tissue, Open Approach (ICD-10-PCS; 2023-09-05)
PROC: 02HV33Z Insertion of Infusion Device into Superior Vena Cava, Percutaneous Approach (ICD-10-PCS; 2023-09-07)
PROC: 0SPB09Z Removal of Liner from Left Hip Joint, Open Approach (ICD-10-PCS; 2023-09-09)
PROC: 0SPS0JZ Removal of Synthetic Substitute from Left Hip Joint, Femoral Surface, Open Approach (ICD-10-PCS; 2023-09-09)
PROC: 0SUS09Z Supplement Left Hip Joint, Femoral Surface with Liner, Open Approach (ICD-10-PCS; 2023-09-09)
PROC: 0KBP0ZZ Excision of Left Hip Muscle, Open Approach (ICD-10-PCS; 2023-09-09)
PROC: 3E0102A Introduction of Anti-Infective Envelope into Subcutaneous Tissue, Open Approach (ICD-10-PCS; 2023-09-09)
PROC: 0SRS0J9 Replacement of Left Hip Joint, Femoral Surface with Synthetic Substitute, Cemented, Open Approach (ICD-10-PCS; principal; 2023-09-09 08:00)
PROC: 30233N1 Transfusion of Nonautologous Red Blood Cells into Peripheral Vein, Percutaneous Approach (ICD-10-PCS; 2023-09-10)
DX: T84.52XA Infection and inflammatory reaction due to internal left hip prosthesis, initial encounter (principal); E87.1 Hypo-osmolality and hyponatremia; L02.416 Cutaneous abscess of left lower limb; T84.031A Mechanical loosening of internal left hip prosthetic joint, initial encounter; M06.9 Rheumatoid arthritis, unspecified; D50.9 Iron deficiency anemia, unspecified; B95.61 Methicillin susceptible Staphylococcus aureus infection as the cause of diseases classified elsewhere; E87.5 Hyperkalemia; I73.00 Raynaud's syndrome without gangrene; M19.90 Unspecified osteoarthritis, unspecified site; R59.0 Localized enlarged lymph nodes; D64.89 Other specified anemias; M81.0 Age-related osteoporosis without current pathological fracture; G62.9 Polyneuropathy, unspecified; Z60.8 Other problems related to social environment; Y79.2 Prosthetic and other implants, materials and accessory orthopedic devices associated with adverse incidents; Z85.3 Personal history of malignant neoplasm of breast; Z79.899 Other long term (current) drug therapy; Z91.040 Latex allergy status
CPT/HCPCS: 36573; 73501; 74018; 80048; 80053; 82728; 83540; 83550; 83605; 84132; 85025; 85610; 85652; 86140; 86850; 86900; 86901; 86920; 87040; 87070; 87075; 87077; 87186; 87205; 93970; 96365; 96372; 96375; 99285

== ENCOUNTER → 2023-11-15 | Outpatient (CLI) | payer MEDICARE ==
--- NOTE | 2023-11-15 16:00 | US ---
EXAMINATION TYPE: US venous doppler duplex LE LT DATE OF EXAM: 11/15/2023 3:47 PM COMPARISON: BLEV 09/04/23 CLINICAL INDICATION: Female, 78 years old with history of Swelling left lower extremity; Patient soila es hx of DVT; patient is s/p hip replacement 07/28/23 and is experiencing LLE swelling SIDE PERFORMED: Left TECHNIQUE: The lower extremity deep venous system is examined utilizing real time linear array sonog maribel with graded compression, doppler sonography and color-flow sonography. VESSELS IMAGED: Common Femoral Vein Deep Femoral Vein Greater Saphenous Vein * Femoral Vein Popliteal Vein Small Saphenous Vein * Proximal Calf Veins (* superficial vessels) Left Leg: Negative for DVT IMPRESSION: Grayscale, color doppler, spectral doppler imaging performed of the deep veins of the lo wer extremities. There is normal flow, compressibility, vascular waveforms.
== END | disposition home or self-care (01) ==
LOC: RADUSWWP 14:48
PROVIDERS: ATTEND Internal Medicine Infectious Disease
DX: R22.42 Localized swelling, mass and lump, left lower limb (principal)

== ENCOUNTER → 2024-01-15 | Outpatient (CLI) | payer MEDICARE ==
--- NOTE | 2024-01-16 16:42 | BD ---
EXAMINATION TYPE: Axial Bone Density DATE OF EXAM: 01/15/2024 CLINICAL HISTORY: 78 years old Female. ICD-10 CODE: M85.88 DISORDER OF BONE Height: 65 Weight: 127 FRAX RISK QUESTIONS: Family History (Parent hip fracture): no History of Fracture in Adulthood: no Secondary Osteoporosis: no Rheumatoid Arthritis: yes RISK FACTORS HISTORY OF: Surgery to Spine/Hip(left): yes When: 08/19 MEDICATIONS: Thyroid Medications: no Osteoporosis Medications: no EXAM MEASUREMENTS: Bone mineral densitometry was performed using the [employer]. Bone mineral density as measured about the Lumbar spine is: ----- L1-L4(G/cm2): 0.947 T Score Values are as follows: ----- L1: -2.8 ----- L2: -2.4 ----- L3: -2.0 ----- L4: -1.0 ----- L1-L4: -1.9 Z Score Values are as follows: ----- L1: -0.7 ----- L2: -0.3 ----- L3: 0.0 ----- L4: 1.0 ----- L1-L4: 0.1 Bone mineral density has: Decreased -2.4% since study of: 01/13/2022 Bone mineral density about the R hip (g/cm2): 0.700 T Score values are as follows: -----R Neck: -2.6 -----R Total: -2.4 Z Score values are as follows: -----R Neck: -0.3 -----R Total: -0.3 Bone mineral density has: Decreased -4.1% since study of: 01/13/2022 FRAX%s: The graph provided illustrates a 23.7% chance for a major osteoporotic fx and a 9.7% chance f or the hips probability for fx in 10 years time. IMPRESSION: Osteoporosis (T Score less than -2.5). There is increased fracture risk and therapy is usually indicated based on age. Re-Screen 1-2 years. NOTE: T-SCORE=SD OF THE YOUNG ADULT MEAN.
== END | disposition home or self-care (01) ==
LOC: RADBDWWP 09:56
PROVIDERS: ATTEND Internal Medicine Hematology & Oncology
DX: M81.0 Age-related osteoporosis without current pathological fracture (principal); M85.88 Other specified disorders of bone density and structure, other site
CPT/HCPCS: 77080

== ENCOUNTER 2024-02-28 20:40 | Emergency (ER) | payer MEDICARE ==
[2024-02-28 20:52] VITALS: RESP 20
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
[2024-02-28] MEDS: LIDOCAINE 2%-EPI 1:100,000 20 ML VIAL SQ STA (21:40)
[2024-02-28] MEDS: DIPH,PERTUS(ACELL)TETVAC-LF 0.5 ML VIAL IM ONE (21:40)
--- NOTE | 2024-02-29 00:02 | CT ---
EXAM: CT Head Without Intravenous Contrast CLINICAL HISTORY: ITS.REASON CT Reason: pain TECHNIQUE: Axial computed tomography images of the head/brain without intravenous contrast. CTDI is 45.2 mGy and DLP is 1071 mGy-cm. This CT exam was performed using one or more of the following dose reduction techniques: automated exposure control, adjustment of the mA and/or kV according to patient size, and/or use of iterative reconstruction technique. COMPARISON: No relevant prior studies available. FINDINGS: No acute intracranial hemorrhage. No midline shift or mass effect. The territorial rivera-white matter differentiation is maintained throughout. Age-related cerebral volume loss. Periventricular and subcortical white matter hypoattenuation, consistent with chronic microangiopathy. RIGHT parietal laceration. The visualized orbits appear grossly unremarkable. The calvarium is intact. The visualized paranasal sinuses and mastoid air cells are grossly clear. IMPRESSION: 1. No acute intracranial hemorrhage, midline shift, or mass effect. 2. RIGHT parietal laceration. EXAM: CT Cervical Spine Without Intravenous Contrast CLINICAL HISTORY: ITS.REASON CT Reason: pain TECHNIQUE: Axial computed tomography images of the cervical spine without intravenous contrast. CTDI is 10.3 mGy and DLP is 314.7 mGy-cm. This CT exam was performed using one or more of the following dose reduction techniques: automated exposure control, adjustment of the mA and/or kV according to patient size, and/or use of iterative reconstruction technique. COMPARISON: No relevant prior studies available. FINDINGS: The vertebral body heights are maintained. The craniocervical junction is intact. The atlanto-dens interval is maintained. The dens is intact. There is no spondylolisthesis. Multilevel cervical spondylosis and degenerative disc disease. Straightening of the cervical lordosis. The unenhanced neck soft tissues are grossly unremarkable. The visualized lung apices are grossly clear. IMPRESSION: No acute fracture or subluxation of the cervical spine.
[2024-02-29 00:19] VITALS: BP 122/75; PULSE 60; TEMP 97.6
== END 2024-02-29 00:19 | disposition home or self-care (01) ==
LOC: EC 20:40
DX: S01.01XA Laceration without foreign body of scalp, initial encounter (principal); Z91.040 Latex allergy status; Z23 Encounter for immunization; W18.09XA Striking against other object with subsequent fall, initial encounter
CPT/HCPCS: 12002; 70450; 72125; 90471; 90715; 99283